=== PATIENT | male | born 1940 | race Caucasian/White ===

== ENCOUNTER 2018-06-13 09:25 | Outpatient (CLI) | payer MEDICARE | END 2018-06-13 09:26 | disposition critical access hospital (66) | LOC: EMS 09:25 | PROVIDERS: ATTEND Surgery | DX: R51 Headache (principal); R41.0 Disorientation, unspecified; R35.0 Frequency of micturition | CPT/HCPCS: A0425; A0427 ==

== ENCOUNTER 2018-06-13 09:51 | Inpatient (IN) | payer MEDICARE ==
[2018-06-13] MEDS ORDERED: SODIUM CHLORIDE 0.9% 1,000 ML IV ONE (10:34)
--- NOTE | 2018-06-13 10:44 | ED Physician Documentation ---
PD HPI ALTERED MENTAL STATUS - Stated complaint Stated Complaint: AMS - Chief complaint Chief Complaint: Neuro - History obtained from History obtained from: Patient, Family - History of Present Illness Timing - onset: How many days ago (3) Timing - duration: Days (3) Timing - details: Gradual onset, Still present, Still present in ED Quality / character: Less responsive, Confused Associated symptoms: Headache, Urinary sx, General weakness. No: Fever, Stiff neck, Dyspnea, Cough, NVD, Focal weakness, Seizure activity, Syncope Contributing factors: Anticoagulated Basline status: Alert and oriented X 3, Ambulatory, Independent Similar symptoms before: Other (dementia starting about 1 year ago.) Recently seen: Not recently seen - Additional information Additional information: 78-year-old male with history of hypertension and a atrial fibrillation who is on Xarelto has recently returned from [place] about a week ago and he has been unpacking and working hard until about 3 days ago when he slowed down and stopped doing as much and yesterday he spent pretty much the whole day napping in his easy chair. His was gone yesterday getting an epidural steroid injection and when he returned home he found the patient to be less responsive than usual he thought the patient may be exhausted and when he slept well today last night and was still confused this morning he is brought him here to the emergency department for evaluation. The patient has had some urinary symptoms he has had a headache and he is on Xarelto and he has not been taking his medications which include metoprolol XL and enalapril Review of Systems Constitutional: reports: Fatigue. denies: Fever, Chills Eyes: denies: Decreased vision Ears: denies: Ear pain Nose: denies: Rhinorrhea / runny nose, Congestion Throat: denies: Sore throat Cardiac: denies: Chest pain / pressure, Palpitations, Pedal edema, Calf pain Respiratory: denies: Dyspnea, Cough GI: reports: Constipation. denies: Abdominal Pain, Nausea, Vomiting, Diarrhea : reports: Frequency, Incontinent. denies: Dysuria Skin: denies: Rash Musculoskeletal: reports: Back pain. denies: Neck pain, Extremity pain Neurologic: reports: Confused, Altered mental status, Headache. denies: Generalized weakness, Focal weakness, Numbness, Head injury, LOC PD PAST MEDICAL HISTORY - Present Medications Home Medications: Ambulatory Orders Medication Instructions Recorded Confirmed Allopurinol 300 mg PO DAILY 06/13/18 06/13/18 Beclomethasone 80 Mcg [Qvar 80] 0 puffs INH BID 06/13/18 06/13/18 Celecoxib 200 mg PO DAILY 06/13/18 06/13/18 Enalapril Maleate [Vasotec] 20 mg PO DAILY 06/13/18 06/13/18 Felodipine [Felodipine ER] 5 mg PO DAILY 06/13/18 06/13/18 Metoprolol Succinate [Toprol Xl] 50 mg PO DAILY 06/13/18 06/13/18 Rivaroxaban [Xarelto] 20 mg PO DAILY 06/13/18 06/13/18 Testosterone Cypionate 200 mg IM ONCE 06/13/18 06/13/18 [Depo-Testosterone] buPROPion [Wellbutrin Sr] 150 mg PO BID 06/13/18 06/13/18 - Allergies Allergies/Adverse Reactions: Allergies Allergy/AdvReac Type Severity Reaction Status Date / Time No Known Drug Allergies Allergy Verified 06/13/18 10:01 PD ED PE NORMAL - Vitals Vital signs reviewed: Yes (tachy and hypertensive ) - General General: No acute distress, Well developed/nourished, Other (confused and smiling/laughing) - HEENT HEENT: Atraumatic, PERRL, EOMI, Ears normal, Pharynx benign, Dentition benign, Other (dry mucous membranes) - Neck Neck: Supple, no meningeal sign, No bony TTP - Cardiac Cardiac: No murmur, Other (tachy and irregular ) - Respiratory Respiratory: No respiratory distress, Clear bilaterally - Abdomen Abdomen: Soft, Non tender - Back Back: No CVA TTP, No spinal TTP - Derm Derm: Normal color, Warm and dry, No rash - Extremities Extremities: No deformity, No edema - 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, No motor deficit, No sensory deficit, Normal speech Eye Opening: Spontaneous Motor: Obeys Commands Verbal: Confused GCS Score: 14 - Psych Psych: Normal mood, Normal affect Results - Vitals Vitals: Vital Signs - 24 hr 06/13/18 06/13/18 06/13/18 09:53 10:05 12:08 Temperature 36.6 C Heart Rate 104 H 100 95 Respiratory 14 19 20 Rate Blood Pressure 202/139 H 186/132 H 196/136 H O2 Saturation 96 97 97 05/02/19 12:57 Temperature Heart Rate 94 Respiratory 22 Rate Blood Pressure 147/103 H O2 Saturation 94 Oxygen O2 Source Room air - EKG (time done) 1005 Rate: Rate (enter#) (106) Rhythm: Atrial fibrillation Compare to prior EKG: Old EKG unavailable Computer interpretation: Agree with computer - Labs Labs: Laboratory Tests 06/13/18 06/13/18 06/13/18 10:55 10:55 10:55 WBC 10.5 RBC 5.40 Hgb 18.2 H Hct 55.1 H MCV 102.2 H MCH 33.7 H MCHC 33.0 RDW 14.6 Plt Count 164 MPV 7.8 Neut # (Auto) 7.7 H Lymph # (Auto) 1.7 St[place]ard # (Auto) 0.9 Eos # (Auto) 0.1 Baso # (Auto) 0.1 Absolute Nucleated RBC 0.00 Nucleated RBC % 0.0 PT 12.7 H INR 1.1 Sodium 136 Potassium 3.8 Chloride 102 Carbon Dioxide 21 Anion Gap 13.0 BUN 15 Creatinine 0.7 Estimated GFR (MDRD) 109 Glucose 105 H Lactic Acid Calcium 9.4 Total Bilirubin 2.0 H AST 38 ALT 33 Alkaline Phosphatase 65 Troponin I Total Protein 6.5 L Albumin 3.6 Globulin 2.9 Albumin/Globulin Ratio 1.2 Lipase 28 Urine Color Urine Clarity Urine pH Ur Specific [place] Urine Protein Urine Glucose (UA) Urine Ketones Urine Occult Blood Urine Nitrite Urine Bilirubin Urine Urobilinogen Ur Leukocyte Esterase Urine RBC Urine WBC Ur Squamous Epith Cells Urine Bacteria Ur Microscopic Review Urine Culture Comments 06/13/18 06/13/18 06/13/18 10:55 10:55 12:00 WBC RBC Hgb Hct MCV MCH MCHC RDW Plt Count MPV Neut # (Auto) Lymph # (Auto) St[place] # (Auto) Eos # (Auto) Baso # (Auto) Absolute Nucleated RBC Nucleated RBC % PT INR Sodium Potassium Chloride Carbon Dioxide Anion Gap BUN Creatinine Estimated GFR (MDRD) Glucose Lactic Acid 1.1 Calcium Total Bilirubin AST ALT Alkaline Phosphatase Troponin I < 0.04 Total Protein Albumin Globulin Albumin/Globulin Ratio Lipase Urine Color YELLOW Urine Clarity CLEAR Urine pH 6.5 Ur Specific [place] 1.020 Urine Protein 30 H Urine Glucose (UA) NEGATIVE Urine Ketones 15 H Urine Occult Blood SMALL H Urine Nitrite NEGATIVE Urine Bilirubin NEGATIVE Urine Urobilinogen 1 (NORMAL) Ur Leukocyte Esterase NEGATIVE Urine RBC 0-5 Urine WBC 0-3 Ur Squamous Epith Cells RARE Squamous Urine Bacteria Rare Ur Microscopic Review INDICATED Urine Culture Comments NOT INDICATED - Rads (name of study) CT head without Radiology: Prelim report reviewed (Impression: Generalized age-related cortical atrophic changes without evidence of acute intracranial abnormality.), EMP read indepedently, See rad report Procedures - IVC sono (time) 1030 Bedside IVC sono: IVC measures (cm) (1.22), IVC collapsed c insp (cm) (complete), Dehydration (est 1 liter deficit) PD MEDICAL DECISION MAKING - ED course Complexity details: reviewed results, re-evaluated patient, considered differential, d/w patient, d/w family ED course: 78-year-old male on Xarelto with acute confusion does have a headache and hypertension as well as some urinary symptoms. He is administered metoprolol XL enalapril and a CT of the head is obtained. He has improvement in his blood pressure and his ability to communicate but he is far from his baseline. He has some existing dementia and this seems now suddenly worse or he has some hypertensive encephalopathy. I have asked Dr. Rodney to consider the patient for admission to the hospital for MRI, monitoring and blood pressure control. Departure - Departure Disposition: ED Place in Observation Clinical Impression: Hypertensive encephalopathy syndrome Condition: Fair
[2018-06-13] MEDS ORDERED: METOPROLOL SUCCINATE 50 MG TABLET PO STA (10:48)
[2018-06-13] MEDS ORDERED: ENALAPRIL 5 MG TABLET PO STA (10:48)
[2018-06-13 11:05] LABS: BASOPHILS # (AUTO) 0.1 10^3/uL (0.0-0.1); EOSINOPHILS # (AUTO) 0.1 10^3/uL (0.0-0.7); HGB - HEMOGLOBIN 18.2 g/dL (14.0-18.0); LYMPHOCYTES # (AUTO) 1.7 10^3/uL (1.5-3.5); LYMPHOCYTES % (AUTO) 15.8 %; MEAN CORPUSCULAR HEMOGLOBIN 33.7 pg (27.0-31.0); MEAN CORPUSCULAR VOLUME 102.2 fL (80.0-94.0); MEAN PLATELET VOLUME 7.8 fL (7.4-11.4); MONOCYTES # (AUTO) 0.9 10^3/uL (0.0-1.0); NEUTROPHILS # (AUTO) 7.7 10^3/uL (1.5-6.6); NEUTROPHILS % (AUTO) 73.2 %; PLT - PLATELET COUNT 164 10^3/uL (130-450); RED CELL DISTRIBUTION WIDTH 14.6 % (12.0-15.0); WHITE BLOOD COUNT 10.5 x10^3/uL (4.8-10.8)
[2018-06-13 11:16] LABS: INR 1.1 (0.8-1.2); PT - PROTHROMBIN TIME 12.7 secs (9.9-12.6)
[2018-06-13 11:20] LABS: ALBUMIN 3.6 g/dL (3.2-5.5); ALBUMIN/GLOBULIN RATIO 1.2 (1.0-2.2); CALCIUM 9.4 mg/dL (8.5-10.3); CREATININE 0.7 mg/dL (0.6-1.2); TOTAL PROTEIN 6.5 g/dL (6.7-8.2)
--- NOTE | 2018-06-13 11:31 | CT Report ---
Reason: confusion, headache, htn Procedure Date: 06/13/2018 Accession Number: [id number] / [id number] Procedure: CT - HEAD WO CPT Code: FULL RESULT: EXAM: CT HEAD EXAM DATE: 06/13/2018 11:15 AM. CLINICAL HISTORY: Headache. COMPARISON: None. TECHNIQUE: Multiaxial CT images were obtained from the foramen magnum to the vertex. Reformats: Sagittal and coronal. IV contrast: None. In accordance with CT protocol optimization, one or more of the following dose reduction techniques were utilized for this exam: automated exposure control, adjustment of mA and/or KV based on patient size, or use of iterative reconstructive technique. FINDINGS: Parenchyma: No intraparenchymal hemorrhage. No evidence of mass, midline shift, or CT findings of acute infarction. Gonzalez-white differentiation is distinct. Diffuse chronic microangiopathic white matter changes are evident. Extraaxial Spaces: Normal for age. No subdural or epidural collections identified. Ventricles: The ventricles and cortical sulci are enlarged, consistent with age-related tissue loss. Sinuses and orbits: Imaged paranasal sinuses, orbits, and mastoids show no significant abnormality. Bones: No evidence of fracture or calvarial defect. Other: None. IMPRESSION: Generalized age-related cortical atrophic changes without evidence of acute intracranial abnormality. RADIA
[2018-06-13 12:18] LABS: GLUCOSE, URINE (UA) NEGATIVE (NEGATIVE); KETONES,URINE (UA) 15 mg/dL (NEGATIVE); LEUKOCYTE ESTERASE, URINE NEGATIVE (NEGATIVE); NITRITE,URINE NEGATIVE (NEGATIVE); OCCULT BLOOD,URINE SMALL (NEGATIVE); PH,URINE 6.5 PH (5.0-7.5); PROTEIN,URINE 30 mg/dL (NEGATIVE); UROBILINOGEN,URINE 1 (NORMAL) E.U./dL (NORMAL)
[2018-06-13 12:30] LABS: BILIRUBIN,URINE NEGATIVE (NEGATIVE); CLARITY,URINE CLEAR (CLEAR); ICTOTEST,URINE NEGATIVE
[2018-06-13 12:36] LABS: BACTERIA,URINE Rare /HPF (None Seen); RBC,URINE 0-5 /HPF (0-5); SQUAMOUS EPITHELIAL CELL,UR RARE Squamous (<= Few)
[2018-06-13] MEDS ORDERED: ZOLPIDEM 5 MG TABLET PO PRN (13:55)
--- NOTE | 2018-06-13 14:37 | HISTORY & PHYSICAL EXAMINATION ---
Chief Complaint - Chief Complaint Chief Complaint: Confusion with associated weakness Stroke/TIA/Neuro Template - Admitted From Admitted from: ED - History Obtained From Records Reviewed: RN notes reviewed History obtained from: Patient, Other (Dr. Fierro) Exam limitations: Clinical condition, Other (Encephalopathic but improved) - History of Present Illness HPI Comment/Other: 78-year-old male with history of hypertension and a atrial fibrillation who is on Xarelto has recently returned from [place] about a week ago and he has been unpacking and working hard until about 3 days ago when he slowed down and stopped doing as much and yesterday he spent pretty much the whole day napping in his easy chair. His was gone yesterday getting an epidural steroid injection and when he returned home he found the patient to be less responsive than usual he thought the patient may be exhausted and when he slept well today last night and was still confused this morning he is brought him here to the emergency department for evaluation. The patient has had some urinary symptoms he has had a headache and he is on Xarelto and he has not been taking his medications which include metoprolol XL and enalapril. Patient's initial blood pressure showed a systolic of 202/139 diastolic slightly RVR A. fib at 104 bpm was given IV and p.o. BP meds which now has come down to 147/103 nontachypneic non-hypoxemic with a controlled rate atrial fibrillation of 94 bpm. Patient's initial hemoglobin was 18.2 with a WBC of 10.5, platelets 164, MCV 102.2 (macrocytosis). Electrolytes were normal with normal renal function creatinine of 0.7. Lactic acid 1.1, T bilirubin 2.0 with normal glucose. TSH <0.08, UDS +opiates and cannibinoids. Initial CT of the head showed diffuse chronic microangiopathic changes. Patient to be admitted for further evaluation management treatment. Meds/Allgy - Home Medications Home Medications: Ambulatory Orders Medication Instructions Recorded Confirmed Allopurinol 300 mg PO DAILY 06/13/18 06/13/18 Beclomethasone 80 Mcg [Qvar 80] 2 - 4 puffs INH BID PRN 06/13/18 06/13/18 Celecoxib 200 mg PO DAILY 06/13/18 06/13/18 Enalapril Maleate [Vasotec] 20 mg PO BID 06/13/18 06/13/18 Felodipine [Felodipine ER] 10 mg PO DAILY 06/13/18 06/13/18 Fluticasone [Flonase] 2 sprays JAMIN DAILY 06/13/18 06/13/18 Folic Acid 1 mg PO DAILY 06/13/18 06/13/18 Hydroxychloroquine [Plaquenil] 400 mg PO DAILY 06/13/18 06/13/18 Methotrexate 20 mg PO Q7D 06/13/18 06/13/18 Metoprolol Succinate [Toprol Xl] 100 mg PO DAILY 06/13/18 06/13/18 Potassium Chloride 10 meq PO DAILY 06/13/18 06/13/18 Rivaroxaban [Xarelto] 20 mg PO DAILY 06/13/18 06/13/18 Testosterone Cypionate 200 mg IM ONCE 06/13/18 06/13/18 [Depo-Testosterone] buPROPion [Wellbutrin Sr] 150 mg PO BID 06/13/18 06/13/18 predniSONE [Prednisone] 5 mg PO DAILY 06/13/18 06/13/18 - Allergies Allergies/Adverse Reactions: Allergies Allergy/AdvReac Type Severity Reaction Status Date / Time No Known Drug Allergies Allergy Verified 06/13/18 10:01 Review of Systems - All Other Systems All Other Systems: reports: Reviewed and negative Prior Level of Functionality: Patient was ambulatory and home ADLs with FC normal Exam - Vital Signs Vital Signs: Vital Signs x48h Temp Pulse Resp BP Pulse Ox 06/13/18 12:57 94 22 147/103 H 94 06/13/18 12:08 95 20 196/136 H 97 06/13/18 10:05 100 19 186/132 H 97 06/13/18 09:53 36.6 C 104 H 14 202/139 H 96 - Physical Exam General Appearance: positive: No acute distress, Alert, Other (Patient confused, oriented to self and place) Eyes Bilateral: positive: Normal inspection, PERRL, EOMI ENT: positive: ENT inspection nml, Pharynx nml, No signs of dehydration Neck: positive: Nml inspection, Thyroid nml, No JVD, Trachea midline. negative: Thyromegaly Respiratory: positive: No respiratory distress, Breath sounds nml Cardiovascular: positive: No murmur, No gallop, Irregularly irregular. negative: JVD present, Systolic murmur, Diastolic murmur, Gallop/S4, Friction rub Peripheral Pulses: positive: 2+ Abdomen: positive: Non-tender, No organomegaly, Nml bowel sounds, No distention Skin: positive: Color nml, No rash Extremities: positive: Non-tender, Full ROM, Nml appearance. 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 negative: Facial droop Reflexes: Bicep (R): 1+, Bicep (L): 1+, Knee (R): 2+, Knee (L): 2+, Ankle (R): 1+, Ankle (L): 1+ Babinski Reflex: Right: Absent, Left: Absent Results - Lab Results Lab results reviewed: Yes Fish Bones: 06/13/18 10:55 06/13/18 10:55 Other Lab Results: Lab Results x24hrs 06/13/18 06/13/18 06/13/18 Range/Units 12:00 10:55 10:55 WBC (4.8-10.8) x10^3/uL RBC (4.70-6.10) 10^6/uL Hgb (14.0-18.0) g/dL Hct (42.0-52.0) % MCV (80.0-94.0) fL MCH (27.0-31.0) pg MCHC (32.0-36.0) g/dL RDW (12.0-15.0) % Plt Count (130-450) 10^3/uL MPV (7.4-11.4) fL Neut # (Auto) (1.5-6.6) 10^3/uL Lymph # (Auto) (1.5-3.5) 10^3/uL Hood # (Auto) (0.0-1.0) 10^3/uL Eos # (Auto) (0.0-0.7) 10^3/uL Baso # (Auto) (0.0-0.1) 10^3/uL Absolute Nucleated RBC x10^3/uL Nucleated RBC % /100WBC PT (9.9-12.6) secs INR (0.8-1.2) Sodium (135-145) mmol/L Potassium (3.5-5.0) mmol/L Chloride (101-111) mmol/L Carbon Dioxide (21-32) mmol/L Anion Gap (6-13) BUN (6-20) mg/dL Creatinine (0.6-1.2) mg/dL Estimated GFR (MDRD) (>89) Glucose (70-100) mg/dL Lactic Acid 1.1 (0.5-2.2) mmol/L Calcium (8.5-10.3) mg/dL Total Bilirubin (0.2-1.0) mg/dL AST (10-42) IU/L ALT (10-60) IU/L Alkaline Phosphatase (42-121) IU/L Troponin I < 0.04 (<0.49) ng/mL Total Protein (6.7-8.2) g/dL Albumin (3.2-5.5) g/dL Globulin (2.1-4.2) g/dL Albumin/Globulin Ratio (1.0-2.2) Lipase (22-51) U/L Urine Color YELLOW Urine Clarity CLEAR (CLEAR) Urine pH 6.5 (5.0-7.5) PH Ur Specific [place] 1.020 (1.002-1.030) Urine Protein 30 H (NEGATIVE) mg/dL Urine Glucose (UA) NEGATIVE (NEGATIVE) mg/dL Urine Ketones 15 H (NEGATIVE) mg/dL Urine Occult Blood SMALL H (NEGATIVE) Urine Nitrite NEGATIVE (NEGATIVE) Urine Bilirubin NEGATIVE (NEGATIVE) Urine Urobilinogen 1 (NORMAL) (NORMAL) E.U./dL Ur Leukocyte Esterase NEGATIVE (NEGATIVE) Urine RBC 0-5 (0-5) /HPF Urine WBC 0-3 (0-3) /HPF Ur Squamous Epith Cells RARE Squamous (<= Few) Urine Bacteria Rare (None Seen) /HPF Ur Microscopic Review INDICATED Urine Culture Comments NOT INDICATED 06/13/18 06/13/18 06/13/18 Range/Units 10:55 10:55 10:55 WBC 10.5 (4.8-10.8) x10^3/uL RBC 5.40 (4.70-6.10) 10^6/uL Hgb 18.2 H (14.0-18.0) g/dL Hct 55.1 H (42.0-52.0) % MCV 102.2 H (80.0-94.0) fL MCH 33.7 H (27.0-31.0) pg MCHC 33.0 (32.0-36.0) g/dL RDW 14.6 (12.0-15.0) % Plt Count 164 (130-450) 10^3/uL MPV 7.8 (7.4-11.4) fL Neut # (Auto) 7.7 H (1.5-6.6) 10^3/uL Lymph # (Auto) 1.7 (1.5-3.5) 10^3/uL Hood # (Auto) 0.9 (0.0-1.0) 10^3/uL Eos # (Auto) 0.1 (0.0-0.7) 10^3/uL Baso # (Auto) 0.1 (0.0-0.1) 10^3/uL Absolute Nucleated RBC 0.00 x10^3/uL Nucleated RBC % 0.0 /100WBC PT 12.7 H (9.9-12.6) secs INR 1.1 (0.8-1.2) Sodium 136 (135-145) mmol/L Potassium 3.8 (3.5-5.0) mmol/L Chloride 102 (101-111) mmol/L Carbon Dioxide 21 (21-32) mmol/L Anion Gap 13.0 (6-13) BUN 15 (6-20) mg/dL Creatinine 0.7 (0.6-1.2) mg/dL Estimated GFR (MDRD) 109 (>89) Glucose 105 H (70-100) mg/dL Lactic Acid (0.5-2.2) mmol/L Calcium 9.4 (8.5-10.3) mg/dL Total Bilirubin 2.0 H (0.2-1.0) mg/dL AST 38 (10-42) IU/L ALT 33 (10-60) IU/L Alkaline Phosphatase 65 (42-121) IU/L Troponin I (<0.49) ng/mL Total Protein 6.5 L (6.7-8.2) g/dL Albumin 3.6 (3.2-5.5) g/dL Globulin 2.9 (2.1-4.2) g/dL Albumin/Globulin Ratio 1.2 (1.0-2.2) Lipase 28 (22-51) U/L Urine Color Urine Clarity (CLEAR) Urine pH (5.0-7.5) PH Ur Specific [place]illian (1.002-1.030) Urine Protein (NEGATIVE) mg/dL Urine Glucose (UA) (NEGATIVE) mg/dL Urine Ketones (NEGATIVE) mg/dL Urine Occult Blood (NEGATIVE) Urine Nitrite (NEGATIVE) Urine Bilirubin (NEGATIVE) Urine Urobilinogen (NORMAL) E.U./dL Ur Leukocyte Esterase (NEGATIVE) Urine RBC (0-5) /HPF Urine WBC (0-3) /HPF Ur Squamous Epith Cells (<= Few) Urine Bacteria (None Seen) /HPF Ur Microscopic Review Urine Culture Comments - Diagnostic Imaging Results Diagnostic Imaging Results: positive: Final report reviewed - EKG Results EKG Interpreted Independently: Yes EKG Comparison: positive: Old EKG unavailable Impression/Plan - Problem List Problem List: Assessment and plan: 1. Acute hypertensive encephalopathy Continue to control with patient's oral BP meds with Vasotec for low supine as well as metoprolol ER succinate. Will cover for hypertensive excursions with IV hydralazine with parameters. Initial CT of the head shows no acute ischemic insults. MRI of the brain shows no acute ischemic insults. There is evidence of bilateral cerebral hemisphere inferiorly in the right cerebellum consistent with old lacunar infarcts. Neurochecks, aspiration precautions, control for secondary preventative measures such as statin and patient already on a NOAC for his chronic atrial fibrillation. Interestingly patient's urine drug was positive for opiates and cannabinoids. Patient is on vicodin for back pain. 2. Acute mild dehydration Would continue to give IV fluid resuscitation correct underlying electrolyte disturbance. 3. 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 MRI of the brain to follow. Neurochecks to continue. Control hypertensive excursions. 4. Uncontrolled hypertension Hypertensive excursions to be controlled hydralazine IV PRN with parameters, Clonidine 0.2 mg p.o. twice daily PRN. We will continue patient's p.o. Vasotec, felodipine, oral metoprolol Er succinate to continue. Lipid panel to follow. 5. Chronic atrial fibrillation anticoagulated on Xarelto Patient is currently rate controlled. Continue on Xarelto and evaluate for any bleeding events. CHADSVAsc to follow once ECHO complete. 6. History of CVAs anticoagulated with Xarelto MRI shows moderate white matter cerebral hemisphere small vessel ischemia combined with bilateral and inferiorly in the right cerebellum old lacunar infarcts. Secondary prevention prophylaxis along with continuing with a statin. 7. Chronic back pain Urine drug screen was positive for opiates and cannabinoids. Patient admits to using CBD as well as Vicodin for his chronic back pain. 8. Abnormal Lab/low TSH Unclear if this is subclinical hyperthyroidism versus an autoimmune process. Will obtain free T3-T4 levels. 9. Advanced care planning/counseling Discussion with patient spouse along with medical management plan of care and trajectory of illness were discussed in length. Patient's spouse has comfort patient's CODE STATUS to be full code. [facility] DVT/GI ppx; H2-iban patient already anticoagulated with Xarelto CODE STATUS: Full code Core Measures - Anticipated LOS I expect patient to be DC'd or transferred within 96 hours.: Yes - DVT/VTE - Prophylaxis VTE/DVT Device ordered at admit?: Yes VTE/DVT Prophylaxis med ordered at admit?: No Not Ordered - Medical Reason: Not indicated (Patient is on Xarelto) - Stroke - Rehab Assessment Rehab services assessment to be ordered?: No - AMI - Statin at Admit Aspirin Prescribed on Admit: No Not Ordered - Medical Reason: Not indicated (Patient is on Xarelto)
[2018-06-13 14:40] LABS: MUDS CUTOFF CONCENTRATIONS CUTOFF CONC BELOW:
[2018-06-13 14:42] LABS: THYROID STIMULATING HORMONE < 0.08 uIU/mL (0.34-5.60)
[2018-06-13 14:53] LABS: AMPHETAMINE SCREEN,URINE NEGATIVE (NEGATIVE); BENZODIAZEPINES SCREEN, URINE NEGATIVE (NEGATIVE); COCAINE SCREEN URINE NEGATIVE (NEGATIVE); METHADONE SCREEN, URINE NEGATIVE (NEGATIVE); METHAMPHETAMINES SCREEN, URINE NEGATIVE (NEGATIVE); OPIATE SCREEN, URINE POSITIVE (NEGATIVE); OXYCODONE SCREEN, URINE NEGATIVE (NEGATIVE); PROPOXYPHENE SCREEN, URINE NEGATIVE (NEGATIVE); TRICYCLIC ANTIDEPRESSANT,URINE NEGATIVE (NEGATIVE)
[2018-06-13] MEDS: ACETAMINOPHEN 325 MG TABLET PO PRN (15:02)
[2018-06-13] MEDS: SODIUM CHLORIDE FLUSH 0.9% 10 ML SYRINGE IVP SCH (16:56)
[2018-06-13] MEDS: SODIUM CHLORIDE 0.9% 1,000 ML IV SCH (16:56)
[2018-06-13] MEDS ORDERED: RIVAROXABAN 10 MG TABLET PO SCH (17:00)
--- NOTE | 2018-06-13 17:17 | MRI Report ---
Reason: Encephalopathy Procedure Date: 06/13/2018 Accession Number: [id number] / [id number] Procedure: MRI - Brain W/O CPT Code: FULL RESULT: EXAM: MRI BRAIN WITHOUT CONTRAST EXAM DATE: 06/13/2018 04:33 PM. CLINICAL HISTORY: Confusion. Clinical history from prior study includes: Headache. COMPARISON: HEAD W/O 06/13/2018 11:07 AM. TECHNIQUE: Multiplanar, multisequence T1-weighted and fluid-sensitive MR sequences of the brain were performed. Sequences optimized for routine evaluation. Other: None. IV Contrast: None. FINDINGS: (Study is somewhat limited by motion artifact.) Brain Volume: Mild age-related atrophy is present. Parenchyma/Dura: No mass, acute infarct or hemorrhage. Moderate confluent periventricular and patchy deep white matter T2/FLAIR bright signal is seen in the cerebral hemispheres. Several small punctate cystic foci are seen bilaterally. On the right this is noted superior to the atrium of the right lateral ventricle. On the left this is seen in the nava radiata. A small linear cystic focus is seen in the right cerebellum. Ventricles/Cisterns: Mild prominence to the ventricular system and overlying cortical sulci is noted. No hydrocephalus. No abnormal extra-axial fluid collection or hemorrhage. Orbits: Unremarkable. Note is made of right lens removal. Sella Turcica: The pituitary gland, cavernous sinuses, suprasellar cistern and optic chiasm are unremarkable. IAC: Symmetric and unremarkable. Vasculature: Normal signal flow void is seen in the major arterial structures at the skull base. Sinuses: No acute appearing sinus disease. Bones: No focal pathologic appearing marrow signal changes. Other: None. IMPRESSION: (Study is somewhat limited by motion artifact.) 1. No acute intracranial abnormality. No acute infarct, mass, or hemorrhage. 2. Age-related atrophy. 3. Moderate white matter T2/FLAIR bright signal is seen in the cerebral hemispheres. This is nonspecific. This can be seen secondary to small vessel ischemic change. 4. Small cystic foci seen in the white matter of the cerebral hemispheres bilaterally and inferiorly in the right cerebellum. This is consistent with old lacunar infarcts. RADIA
[2018-06-13] MEDS: FAMOTIDINE 20 MG TABLET PO SCH (20:32)
[2018-06-14] MEDS: SODIUM CHLORIDE FLUSH 0.9% 10 ML SYRINGE IVP SCH ×3 (01:00→16:58)
[2018-06-14 05:11] LABS: BASOPHILS # (AUTO) 0.1 10^3/uL (0.0-0.1); BASOPHILS % (AUTO) 0.8 %; EOSINOPHILS # (AUTO) 0.3 10^3/uL (0.0-0.7); EOSINOPHILS % (AUTO) 3.2 %; HGB - HEMOGLOBIN 16.1 g/dL (14.0-18.0); LYMPHOCYTES % (AUTO) 24.3 %; MEAN CORPUSCULAR HEMOGLOBIN 33.9 pg (27.0-31.0); MEAN CORPUSCULAR HGB CONC 33.2 g/dL (32.0-36.0); MEAN CORPUSCULAR VOLUME 102.3 fL (80.0-94.0); MONOCYTES % (AUTO) 12.4 %; NEUTROPHILS # (AUTO) 4.9 10^3/uL (1.5-6.6); NEUTROPHILS % (AUTO) 59.3 %; PLT - PLATELET COUNT 165 10^3/uL (130-450); RED BLOOD COUNT 4.76 10^6/uL (4.70-6.10); RED CELL DISTRIBUTION WIDTH 14.4 % (12.0-15.0); WHITE BLOOD COUNT 8.2 x10^3/uL (4.8-10.8)
[2018-06-14 05:21] LABS: ALBUMIN 3.3 g/dL (3.2-5.5); BUN - BLOOD UREA NITROGEN 17 mg/dL (6-20); CARBON DIOXIDE - CO2 26 mmol/L (21-32); CHLORIDE 107 mmol/L (101-111); CHOL/HDL RATIO 3.7 (<5.0); CHOLESTEROL 150 mg/dL; CREATININE 0.8 mg/dL (0.6-1.2); GFR - MDRD 94 (>89); GLUCOSE 106 mg/dL (70-100); HDL CHOLESTEROL 41 mg/dL; LDL CHOLESTEROL,CALCULATED 92 mg/dL; LDL/HDL RATIO 2.2 (<3.6); PHOSPHORUS 3.5 mg/dL (2.5-4.6); SODIUM 143 mmol/L (135-145); VLDL CHOLESTEROL 17 mg/dL
[2018-06-14] MEDS: SODIUM CHLORIDE 0.9% 1,000 ML IV SCH ×2 (05:28→18:19)
[2018-06-14] MEDS: hydrALAZINE INJ 20 MG/ML VIAL IVP PRN (07:47)
[2018-06-14] MEDS ORDERED: METOPROLOL SUCCINATE 50 MG TABLET PO SCH (09:00)
[2018-06-14] MEDS ORDERED: predniSONE 5 MG TABLET PO SCH (09:00)
[2018-06-14] MEDS: FLUTICASONE NASAL SPRAY NAS SCH (10:07)
[2018-06-14] MEDS: NYSTATIN POWDER 15 GM TOP SCH ×2 (10:07→20:40)
[2018-06-14] MEDS: POLYETHYLENE GLYCOL 3350 17 GM PACKET PO SCH (10:08)
[2018-06-14] MEDS: POTASSIUM CHLORIDE 10 MEQ CAPSULE PO SCH (10:08)
[2018-06-14] MEDS: ENALAPRIL 5 MG TABLET PO SCH (10:08)
[2018-06-14] MEDS: FELODIPINE ER 2.5 MG TABLET PO SCH (10:08)
[2018-06-14] MEDS: FAMOTIDINE 20 MG TABLET PO SCH ×2 (10:09→20:39)
[2018-06-14] MEDS: FOLIC ACID 1 MG TABLET PO SCH (10:09)
[2018-06-14] MEDS: ALLOPURINOL 100 MG TABLET PO SCH (10:09)
--- NOTE | 2018-06-14 10:15 | MISCELLANEOUS PROVIDER NOTE ---
Miscellaneous Provider Note - - Note: HPI: 78-year-old male with history of hypertension and a atrial fibrillation who is on Xarelto has recently returned from [place] about a week ago and he has been unpacking and working hard until about 3 days ago when he slowed down and stopped doing as much and yesterday he spent pretty much the whole day napping in his easy chair. His was gone yesterday getting an epidural steroid injection and when he returned home he found the patient to be less responsive than usual he thought the patient may be exhausted and when he slept well today last night and was still confused this morning he is brought him here to the emergency department for evaluation. The patient has had some urinary symptoms he has had a headache and he is on Xarelto and he has not been taking his medications which include metoprolol XL and enalapril. Patient's initial blood pressure showed a systolic of 202/139 diastolic slightly RVR A. fib at 104 bpm was given IV and p.o. BP meds which now has come down to 147/103 nontachypneic non-hypoxemic with a controlled rate atrial fibrillation of 94 bpm. Patient's initial hemoglobin was 18.2 with a WBC of 10.5, platelets 164, MCV 102.2 (macrocytosis). Electrolytes were normal with normal renal function creatinine of 0.7. Lactic acid 1.1, T bilirubin 2.0 with normal glucose. TSH <0.08, UDS +opiates and cannibinoids. Initial CT of the head showed diffuse chronic microangiopathic changes. Patient to be admitted for further evaluation manag ement treatment. Subjective: Patient seen at bedside still displaying some confusion and encephalopathy relating to his blood pressure excursions, no fevers, no urinary incontinence, no observed seizures. Patient denies chest pain, shortness of breath, GI or symptoms. Objective: Vital signs are hemodynamically stable. Afebrile, heart rate of 96 bpm, BP 189/108 after treatment of blood pressure came down to 152/99, 97% O2 saturation on room air. General: Patient is alert and oriented x2, verbalizes with a delayed response, no acute respiratory distress, pleasant cooperative. HEENT: Pupils are equal round reactive light and accommodation with no gaze abnormality or extraocular muscles being within normal limits. NCAT. No buccal lesions. Neck: No JVD, no bruits, no lymphadenopathy, no thyromegaly, trachea midline CV/lungs: Irregular rate and rhythm, S1-S2 within normal limits no murmurs gallops clicks or rubs. Chest is clear to auscultation bilaterally. Abdomen: Soft nontender nondistended positive bowel sounds all quadrants no hepatosplenomegaly. No bruits. Extremities/skin: No edema clubbing or cyanosis. 2+ pulses dorsalis pedis bilaterally. Neuro: Cranial nerves II to XII grossly intact. Decreased plantar and dorsiflexion on active range of motion to left foot versus right foot. Poor bilateral street roller engineer strength. Labs: Reviewed next Imaging: Reviewed Assessment/plan: 1. Acute hypertensive encephalopathy We will continue with up titration of metoprolol ER succinate, continuation of Vasotec along with plan they will. MRI of the brain shows no acute ischemic insults. There is evidence of bilateral cerebral hemisphere inferiorly in the right cerebellum consistent with old lacunar infarcts. Neurochecks, aspiration precautions, control for secondary preventative measures such as statin and patient already on a NOAC for his chronic atrial fibrillation. Interestingly patient's urine drug was positive for opiates and cannabinoids. Patient is on vicodin for back pain. Patient certainly is immunocompromised if he has been on prednisone for the treatment of his rheumatoid arthritis and reactivation of HSV type II would be significant in this case. HIV, hepatitis panel, HSV, RPR serologies pending. Will likely need to start on IV acyclovir in the setting of patient's prior history of HSV type II. LP indicated, Will need to be off of Xarelto for at least 72 hours. 2. Subclinical hyperthyroidism Patient with abnormal TFTs, almost undetectable TSH along with a free T4 at 3.03, free T3 of 4.81. Thyroid ultrasound will be ordered along with possible Tapazole if patient is in RVR A. fib, anti-thyroid antibodies ordered. Patient likely will need an outpatient referral to endocrinology as this may be a comorbidity related to patient's prior history of rheumatoid arthritis. 3. Upper and lower extremity weakness Will have physical therapy assess for gait disturbance and upper and lower extremity weakness which may be attributable to hypertensive encephalopathy. Neurochecks to continue. Control hypertensive excursions. 4. Chronic atrial fibrillation Previously anticoagulated on Xarelto. arelto will be currently on hold to achieve a washout for anticipation of a lumbar puncture. Patient has been displaying mild RVR A. fib although, will need to start on Tapazole at 5 mg p.o. 3 times daily. CHADSVasc 5 pts, 7.2% stroke risk per year. 5. History of CVAs anticoagulated with Xarelto Xarelto has been stopped today in anticipation for a lumbar puncture. MRI shows moderate white matter cerebral hemisphere small vessel ischemia combined with bilateral and inferiorly in the right cerebellum old lacunar infarcts. Secondary prevention prophylaxis along with continuing with a statin. 6. Chronic back pain Urine drug screen was positive for opiates and cannabinoids. Patient admits to using CBD as well as Vicodin for his chronic back pain. 7. Uncontrolled hypertension Hypertensive excursions to be controlled hydralazine IV PRN with parameters, Clonidine 0.2 mg p.o. twice daily PRN. We will continue patient's p.o. Vasotec, felodipine, oral metoprolol Er succinate to continue. Lipid panel Is essentially unremarkable. 8. History of Psoriatic arthritis Will hold off on methotrexate, Plaquenil, and prednisone as well as Celebrex. Patient does have a history of underlying gout which allopurinol will be resumed. 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 10. Advanced care planning/counseling Discussion with patient spouse along with medical management plan of care and trajectory of illness were discussed in length. Patient's spouse has comfort patient's CODE STATUS to be full code. No POSLT in [facility]. Attestation: Due to patient's continued confusion and encephalopathy will be more than 96 hours to continue with medical management for above medical conditions that require continued inpatient support DVT/GI ppx; H2-iban patient already anticoagulated with Xarelto CODE STATUS: Full code
[2018-06-14 10:41] LABS: INR 1.5 (0.8-1.2); PT - PROTHROMBIN TIME 16.3 secs (9.9-12.6)
[2018-06-14] MEDS: HYDROcod/ACETAM 5/325 MG TABLET PO PRN ×2 (12:09→16:58)
[2018-06-14 12:57] LABS: HEPATITIS A IGM NON-REACTIVE (NON-REACTIVE); HEPATITIS B CORE ANTIBODY IGM NON-REACTIVE (NON-REACTIVE); HEPATITIS B SURFACE ANTIGEN NON-REACTIVE (NON-REACTIVE); HEPATITIS C ANTIBODY NON-REACTIVE (NON-REACTIVE)
[2018-06-14] MEDS: ACYCLOVIR INJ 1,000 MG in SODIUM CHLORIDE 0.9% 250 ML IV SCH ×2 (13:51→21:29)
[2018-06-14 14:18] LABS: HIV AG/AB 4TH GEN NON-REACTIVE (NON-REACTIVE)
[2018-06-14] MEDS: methIMAzole 5 MG TABLET PO SCH (17:39)
[2018-06-14] MEDS: METOPROLOL SUCCINATE 50 MG TABLET PO SCH (20:39)
--- NOTE | 2018-06-14 23:20 | Ultrasound Report ---
Reason: Thyroid disease Procedure Date: 06/14/2018 Accession Number: [id number] / [id number] Procedure: US - Head or Neck Soft Tissue CPT Code: FULL RESULT: EXAM: THYROID ULTRASOUND EXAM DATE: 06/14/2018 08:20 PM. CLINICAL HISTORY: Low TSH. COMPARISON: None. TECHNIQUE: Real time sonographic imaging of the thyroid was performed by the electric meter reader. Multiple sales utility representative static images were saved for review. FINDINGS: THYROID GLAND: Right Lobe: 4.6 x 1.7 x 1.4 cm, volume 5.8 cc. Normal background echotexture. Right Lobe Nodules: There is a circumscribed 9 mm heterogeneous nodule with solid and cystic components at the lower pole. Left Lobe: 4 x 1.1 x 1.6 cm, volume 3.8 cc. Normal background echotexture. Left Lobe Nodules: Contain several tiny cysts measuring up to 2 mm. Isthmus: 0.4 cm AP. Isthmic Nodules: None. LYMPH NODES: No adenopathy demonstrated in the central or lateral compartment. OTHER: None. IMPRESSION: 1. Partially cystic 9 mm right thyroid lobe nodule. 2. Several 1-2 mm left thyroid lobe cysts. Management recommendations are based on 2015 [place] [employer] Management Guidelines for Adult Patients with Thyroid Nodules and Differentiated Thyroid Cancer. RADIA
[2018-06-14] MEDS: ACETAMINOPHEN 325 MG TABLET PO PRN (23:46)
[2018-06-15] MEDS: SODIUM CHLORIDE FLUSH 0.9% 10 ML SYRINGE IVP SCH ×3 (01:41→19:40)
[2018-06-15] MEDS: hydrALAZINE INJ 20 MG/ML VIAL IVP PRN (04:39)
[2018-06-15 05:16] LABS: BASOPHILS # (AUTO) 0.1 10^3/uL (0.0-0.1); BASOPHILS % (AUTO) 0.9 %; EOSINOPHILS # (AUTO) 0.3 10^3/uL (0.0-0.7); EOSINOPHILS % (AUTO) 3.3 %; HGB - HEMOGLOBIN 16.1 g/dL (14.0-18.0); LYMPHOCYTES % (AUTO) 21.2 %; MEAN CORPUSCULAR HEMOGLOBIN 34.4 pg (27.0-31.0); MEAN CORPUSCULAR HGB CONC 33.8 g/dL (32.0-36.0); MEAN CORPUSCULAR VOLUME 101.8 fL (80.0-94.0); MEAN PLATELET VOLUME 8.3 fL (7.4-11.4); MONOCYTES % (AUTO) 10.4 %; NEUTROPHILS # (AUTO) 5.9 10^3/uL (1.5-6.6); NEUTROPHILS % (AUTO) 64.2 %; PLT - PLATELET COUNT 171 10^3/uL (130-450); RED BLOOD COUNT 4.67 10^6/uL (4.70-6.10); RED CELL DISTRIBUTION WIDTH 14.7 % (12.0-15.0); WHITE BLOOD COUNT 9.2 x10^3/uL (4.8-10.8)
[2018-06-15 05:27] LABS: ALBUMIN 3.1 g/dL (3.2-5.5); CALCIUM 9.1 mg/dL (8.5-10.3); CREATININE 0.8 mg/dL (0.6-1.2); PHOSPHORUS 3.5 mg/dL (2.5-4.6)
[2018-06-15] MEDS: ACYCLOVIR INJ 1,000 MG in SODIUM CHLORIDE 0.9% 250 ML IV SCH ×3 (05:54→22:12)
[2018-06-15] MEDS: FELODIPINE ER 2.5 MG TABLET PO SCH (08:19)
[2018-06-15] MEDS: ACETAMINOPHEN 325 MG TABLET PO PRN (08:20)
[2018-06-15] MEDS: POTASSIUM CHLORIDE 10 MEQ CAPSULE PO SCH (08:20)
[2018-06-15] MEDS: FOLIC ACID 1 MG TABLET PO SCH (08:20)
[2018-06-15] MEDS: FAMOTIDINE 20 MG TABLET PO SCH (08:20)
[2018-06-15] MEDS: METOPROLOL SUCCINATE 50 MG TABLET PO SCH (08:20)
[2018-06-15] MEDS: methIMAzole 5 MG TABLET PO SCH (08:20)
[2018-06-15] MEDS: ENALAPRIL 5 MG TABLET PO SCH (08:20)
[2018-06-15] MEDS: POLYETHYLENE GLYCOL 3350 17 GM PACKET PO SCH (08:21)
[2018-06-15] MEDS: SODIUM CHLORIDE 0.9% 1,000 ML IV SCH (08:22)
[2018-06-15] MEDS: ALLOPURINOL 100 MG TABLET PO SCH (08:22)
[2018-06-15] MEDS: NYSTATIN POWDER 15 GM TOP SCH ×2 (08:26→20:54)
[2018-06-15] MEDS: FLUTICASONE NASAL SPRAY NAS SCH (08:27)
[2018-06-15] MEDS ORDERED: FELODIPINE ER 2.5 MG TABLET PO SCH (09:00)
[2018-06-15] MEDS ORDERED: LORazepam 2 MG/ML VIAL IVP SCH (10:00)
[2018-06-15] MEDS ORDERED: FELODIPINE ER 2.5 MG TABLET PO ONE (11:00)
--- NOTE | 2018-06-15 11:28 | MISCELLANEOUS PROVIDER NOTE ---
Miscellaneous Provider Note - - Note: HPI: 78-year-old male with history of hypertension and a atrial fibrillation who is on Xarelto has recently returned from [place] about a week ago and he has been unpacking and working hard until about 3 days ago when he slowed down and stopped doing as much and yesterday he spent pretty much the whole day napping in his easy chair. His was gone yesterday getting an epidural steroid injection and when he returned home he found the patient to be less responsive than usual he thought the patient may be exhausted and when he slept well today last night and was still confused this morning he is brought him here to the emergency department for evaluation. The patient has had some urinary symptoms he has had a headache and he is on Xarelto and he has not been taking his medications which include metoprolol XL and enalapril. Patient's initial blood pressure showed a systolic of 202/139 diastolic slightly RVR A. fib at 104 bpm was given IV and p.o. BP meds which now has come down to 147/103 nontachypneic non-hypoxemic with a controlled rate atrial fibrillation of 94 bpm. Patient's initial hemoglobin was 18.2 with a WBC of 10.5, platelets 164, MCV 102.2 (macrocytosis). Electrolytes were normal with normal renal function creatinine of 0.7. Lactic acid 1.1, T bilirubin 2.0 with normal glucose. TSH <0.08, UDS +opiates and cannibinoids. Initial CT of the head showed diffuse chronic microangiopathic changes. Patient to be admitted for further evaluation manag ement treatment. Subjective: Patient displaying "sundowning". Patient was not given Ambien despite being ordered on his medication for insomnia. No evidence of seizure-like activity. No GI/ symptoms. Objective: Vital signs are hemodynamically stable. Afebrile, Heart rate with variable RVR A. fib 99 200 bpm, blood pressure 178/91, RR of 26, 96% O2 saturation on room air. General: Patient Is confused and disoriented x3, Does verbalize and is responsive to command. HEENT: Pupils are equal round reactive light and accommodation with no gaze abnormality or extraocular muscles being within normal limits. NCAT. No buccal lesions. Neck: No JVD, no bruits, no lymphadenopathy, no thyromegaly, trachea midline CV/lungs: Irregular rate and rhythm, S1-S2 within normal limits no murmurs gallops clicks or rubs. Chest is clear to auscultation bilaterally. Abdomen: Soft nontender nondistended positive bowel sounds all quadrants no hepatosplenomegaly. No bruits. Extremities/skin: No edema clubbing or cyanosis. 2+ pulses dorsalis pedis bilaterally. Neuro: Unable to assess cranial nerves due to patient's confusion. No psychomotor retardation present. Decreased plantar and dorsiflexion on active range of motion to left foot versus right foot. Poor bilateral administrative services officer strength. Labs: Reviewed Imaging: Reviewed Assessment/plan: 1. Acute hypertensive encephalopathy Currently patient appears to have a sundowning type presentation. Will give 1 dose of Ativan in order for him to sleep and have more cognitive awareness. We will continue with up titration of felodipine to 10 mg po daily, previously went up on metoprolol ER succinate, continuation of Vasotec along Clonidine as needed as well as IV hydralazine as needed. The initial aim treatment and hypertensive crisis Should have blood pressure lowered by approximately 10 to 20% during the first hour treatment. Further 5 to 15% over the next 23 hours. However, Neurological symptoms of sundowning has confounded patient's neurological status and patient is approaching 48 hours with this type of neurologic symptoms of suspected persistent hypertensive encephalopathy. This level BP control will allow gradual healing of the necrotizing vascular lesions. More aggressive hypertensive therapy is both unnecessary may reduce the blood pressure below the autoregulatory range, possibly leading to ischemic events. Once a BP is controlled, the patient should be Switched to oral formulation with a diastolic blood pressure being gradually reduced to 85 to 90 mmHg over 2 to 3 months. We will transfer to ICU and start IV nicardipine drip. CT of the head on admission was unremarkable. MRI of the brain shows no acute ischemic insults. There is evidence of bilateral cerebral hemisphere inferiorly in the right cerebellum consistent with old lacunar infarcts. CTA of the head and neck were performed however patient was not properly sedated and essentially a nondiagnostic exam was the result of this. There is no proximal occlusion as per the radiologist however cannot comment on other segments of patient's head and neck. 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 We will continue with Neurochecks, aspiration precautions, control for secondary preventative measures such as statin and patient was previously on Xarelto. Currently on hold for anticipation of a lumbar puncture, would defer on ASA also for this reason. Interestingly patient's urine drug was positive for opiates and cannabinoids. Patient is on vicodin for back pain. Patient certainly is immunocompromised if he has been on prednisone for the treatment of his rheumatoid arthritis and reactivation of HSV type II would be significant in this case. Cardiological work-up has not yielded any evidence for acute heart failure or any left ventricular dysfunction with pulmonary edema that you would otherwise see an echocardiogram which revealed an ejection fraction of 50 to 60% in atrial fibrillation with moderate right atrial enlargement and no evidence of motion wall abnormality, Valvular heart disease or any structural heart disease. There was no vascular emergencies also such as an acute aortic dissection. There was no renal emergencies such as acute hypertensive nephrosclerosis or any ischemic injuries noted. Infectious work-up has yielded non-reactive HIV, hepatitis panel, Flu negative. Serologies for RPR, HSV are pending. Patient is day #2 on IV acyclovir in the setting of patient's prior history of HSV type II. LP indicated, Will need to be off of Xarelto for at least 48 hours. Last dose on 06/13. DDx: Severe automatic dysfunction (i.e. [place] and multiple system atrophy syndromes or acute spinal cord injury), Pheochromocytoma, normal pressure hydrocephalus, neurodegenerative disorder, monoamine oxidase inhibitor with the ingestion of tyramine 2. Subclinical hyperthyroidism Continue with Tapazole for Symptomatic subclinical hyperthyroidism. Patient with abnormal TFTs, almost undetectable TSH along with a free T4 at 3.03, free T3 of 4.81. Thyroid ultrasound Is showing a partial cystic 9 mm right thyroid lobe nodule. Unfortunately isotope cannot be obtained for a nuclear medicine study at this time. Thyroid antibodies have been ordered and are pending. Patient likely will need an outpatient referral to endocrinology as this may be a comorbidity related to patient's prior history of rheumatoid arthritis. 3. Upper and lower extremity weakness Physical therapy is following to assess for gait disturbance and upper and lower extremity weakness which may be attributable to hypertensive encephalopathy. Neurochecks to continue. Control hypertensive excursions. 4. Chronic atrial fibrillation Previously anticoagulated on Xarelto. Xarelto will be currently on hold to achieve a washout for anticipation of a lumbar puncture. Continue with Tapazole for variable RVR A. fib. CHADSVasc 5 pts, 7.2% stroke risk per year. 5. History of CVAs anticoagulated with Xarelto Xarelto has been stopped in anticipation for a lumbar puncture. MRI shows moderate white matter cerebral hemisphere small vessel ischemia combined with bilateral and inferiorly in the right cerebellum old lacunar infarcts. Secondary prevention prophylaxis along with continuing with a statin. 6. Chronic back pain Urine drug screen was positive for opiates and cannabinoids. Patient admits to using CBD as well as Vicodin for his chronic back pain. 7. Uncontrolled hypertension Hypertensive excursions to be controlled hydralazine IV PRN with parameters, Clonidine 0.2 mg p.o. twice daily PRN. We will continue patient's p.o. Vasotec, felodipine, oral metoprolol Er succinate to continue. Lipid panel Is essentially unremarkable. 8. History of Psoriatic arthritis Will hold off on methotrexate, Plaquenil, and prednisone as well as Celebrex. Patient does have a history of underlying gout which allopurinol will be resumed. 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 10. Advanced care planning/counseling Discussion with patient spouse along with medical management plan of care and trajectory of illness were discussed in length. Patient's spouse has comfort patient's CODE STATUS to be full code. [facility] Attestation: Due to patient's continued confusion and encephalopathy will be more than 96 hours to continue with medical management for above medical conditions that require continued inpatient support DVT/GI ppx; H2-iban patient already anticoagulated with Xarelto CODE STATUS: Full code
[2018-06-15] MEDS ORDERED: IOVERSOL 320 100 ML VIAL IVP ONE ×2 (11:54→14:44)
[2018-06-15] MEDS ORDERED: HALOPERIDOL 5 MG/ML VIAL IVP PRN (12:04)
[2018-06-15] MEDS ORDERED: LORazepam 2 MG/ML VIAL IVP STA ×2 (13:02→14:10)
[2018-06-15 13:12] LABS: HSV 1 IGG TYPE SPECIFIC AB <0.90 index; HSV 2 IGG TYPE SPECIFIC AB 6.84 index
[2018-06-15] MEDS: HYDROcod/ACETAM 5/325 MG TABLET PO PRN ×3 (13:36→22:49)
--- NOTE | 2018-06-15 16:46 | CT Report ---
Reason: Persistent encephalopathy Procedure Date: 06/15/2018 Accession Number: [id number] / [id number] Procedure: CT - ANGIO HEAD W CPT Code: FULL RESULT: EXAM: CT ANGIOGRAM HEAD AND NECK. CT SCAN HEAD WITHOUT AND WITH CONTRAST. EXAM DATE: 06/15/2018 02:23 PM. CLINICAL HISTORY: 78-year-old with history of prior stroke presenting with persistent encephalopathy. Evaluate for intracranial pathology or vascular pathology. COMPARISON: CT head 06/13/2018, MRI brain 06/13/2018. TECHNIQUE: Routine axial helical CTA imaging was performed from the aortic arch through the [place]. Routine axial CT imaging of the head was performed prior to and following contrast administration. Reconstructions: Routine multiplanar 3D MIP reconstructions. IV contrast: 160 mL Optiray 320. NASCET Criteria are used for stenosis measurements. In accordance with CT protocol optimization, one or more of the following dose reduction techniques were utilized for this exam: automated exposure control, adjustment of mA and/or KV based on patient size, or use of iterative reconstructive technique. FINDINGS: CT SCAN HEAD: Parenchyma: No acute parenchymal hemorrhage, mass, or midline shift. There is moderate bilateral areas of white matter hypoattenuation seen that appear similar to MR brain 06/13/2018. 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 No definite CT evidence of an acute infarct. Mild to moderate cortical volume loss. Extra-axial Spaces: Normal for age. No subdural or epidural collections identified. Ventricles: Normal in size and position. Sinuses and Orbits: Changes of right lens replacement. Minimal mucosal thickening of the ethmoid air cells. Mastoid air cells and middle ear cavities appear clear. Bones: No evidence of fracture or calvarial defect. Other: Vascular calcifications of the cavernous ICA segments and intradural left vertebral artery. CT ANGIOGRAM HEAD AND NECK: There is poor contrast opacification of the arterial vasculature during the arterial phase which significantly technically limits the evaluation. RIGHT: Common Carotid Artery: The origin of the common carotid artery is not well visualized. The mid and distal common carotid artery appear patent. No definite high-grade stenosis or dissection. Carotid Bulb: There is mild moderate atherosclerotic plaque at the bifurcation and siphon. Stenosis at the bifurcation by NASCET criteria: Less than 50% stenosis. Internal Carotid Artery: There is poor contrast opacification of the cervical ICA. There is atherosclerotic plaque of the cavernous ICA segment with no definite high-grade stenosis seen. No evidence of aneurysm along the intracranial ICA. External Carotid Artery: Unremarkable. Vertebral Artery: The origin of the vertebral arteries not well visualized. There is poor contrast opacification of the V1 through V4 segments. Anterior Cerebral Artery: There is poor contrast opacification of the A1 segment which appears patent. There is poor contrast opacification of the A2 and distal A3 segments which appear patent. No definite aneurysm. Middle Cerebral Artery: There is poor contrast opacification of the M1 segment which appears patent. The M2 and distal MCA vessels are poorly visualized. No definite aneurysm of the proximal MCA. Posterior Cerebral Artery: There is poor contrast opacification of the P1 segment of the left [employer] GR[employer] which appears patent. P2 and distal [employer] branches are poorly visualized on this study. No definite aneurysm. Posterior Communicating Artery: Not definitively seen. No aneurysm. LEFT: Common Carotid Artery: The origin of the common carotid artery is not well visualized. The mid and distal common carotid artery appears patent. No definite high-grade stenosis or dissection. Carotid Bulb: There is mild to moderate atherosclerotic plaque at the bifurcation and siphon. Stenosis at the bifurcation by NASCET criteria: Less than 50% stenosis. Internal Carotid Artery: There is poor contrast opacification of the cervical ICA. There is atherosclerotic plaque of the cavernous ICA segment with no definite high-grade stenosis seen. No evidence of aneurysm along the intracranial ICA. External Carotid Artery: Unremarkable. Vertebral Artery: Patent without significant stenosis. No evidence of dissection. Anterior Cerebral Artery: There is poor contrast opacification of the A1 segment which appears patent. There is poor contrast opacification of the A2 and distal A3 segments which appear patent. No definite aneurysm. Middle Cerebral Artery: There is poor contrast opacification of the M1 segment which appears patent. The M2 and distal MCA vessels are poorly visualized. No definite aneurysm of the proximal MCA. Posterior Cerebral Artery: -type [employer] COFFEE GRINDER. Hypoplastic P1 segment. P2 segment appears patent. Visualization of P3 segment of distal [employer] branches is not possible on this study. No definite aneurysm of the proximal [employer] GR[employer]. Posterior Communicating Artery: Patent with no high-grade stenosis. No aneurysm. CENTRAL: Anterior Communicating Artery: There is a questionable outpouching of the anterior communicating artery measuring 3.3 x 4.4 mm (series 6, image 145) that may represent an aneurysm. Basilar Artery: Patent without significant stenosis. No aneurysm. DURAL VENOUS SINUSES AND MAJOR CENTRAL VEINS: Patent. OTHER: The visualized pharynx and larynx appear normal. Major salivary glands appear normal. Thyroid gland appears normal. No cervical lymphadenopathy or necrotic lymph nodes seen. Soft tissues of the neck appear normal. Dependent atelectatic changes. No acute fracture or traumatic subluxation of the cervical spine. Multilevel degenerative changes. No suspicious osseous lesion. POST-CONTRAST HEAD: No abnormal enhancement. IMPRESSION: CT SCAN HEAD: 1. No definite acute infarct seen. If there is clinical concern for an acute stroke or symptoms persist, an MR brain could be considered to evaluate for a small or subtle pathology. Aspects 10 right/10 left. 2. No acute intracranial hemorrhage, mass, hydrocephalus, or midline shift. No definite abnormal postcontrast enhancement. 3. Moderate white matter changes seen that appear similar to MR brain 06/13/2018 and may represent sequelae of chronic small vessel ischemic disease. CT ANGIOGRAM NECK: 1. There is very poor contrast opacification of the vasculature of the neck which significantly technically limits evaluation. This is considered a nondiagnostic exam for evaluation for high-grade stenosis or dissection. Consider repeat examination or MRA neck for further evaluation. CT ANGIOGRAM HEAD: 1. There is very poor contrast opacification of the intracranial vasculature which significantly technically limits evaluation. The proximal anterior and posterior circulation is minimally visible with no definite occlusion seen. Distal anterior and posterior circulation are not visualized on the angiographic phase, and thus the exam is considered nondiagnostic. Consider repeat examination or MRA head for further evaluation. RADIA The call report notification system was initiated by Dr. Andrea Morris at 04:45 PM on 06/15/2018. The above call report findings were discussed with DYAN Rodney by Dr. Andrea Morris at 04:50 PM on 06/15/2018. EXAM: CT ANGIOGRAM HEAD AND NECK. CT SCAN HEAD WITHOUT AND WITH CONTRAST. EXAM DATE: 06/15/2018 02:23 PM. CLINICAL HISTORY: 78-year-old with history of prior stroke presenting with persistent encephalopathy. Evaluate for intracranial pathology or vascular pathology. COMPARISON: CT head 06/13/2018, MRI brain 06/13/2018. TECHNIQUE: Routine axial helical CTA imaging was performed from the aortic arch through the [place]. Routine axial CT imaging of the head was performed prior to and following contrast administration. Reconstructions: Routine multiplanar 3D MIP reconstructions. IV contrast: 160 mL Optiray 320. NASCET Criteria are used for stenosis measurements. In accordance with CT protocol optimization, one or more of the following dose reduction techniques were utilized for this exam: automated exposure control, adjustment of mA and/or KV based on patient size, or use of iterative reconstructive technique. FINDINGS: CT SCAN HEAD: Parenchyma: No acute parenchymal hemorrhage, mass, or midline shift. There is moderate bilateral areas of white matter hypoattenuation seen that appear similar to MR brain 06/13/2018. 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 No definite CT evidence of an acute infarct. Mild to moderate cortical volume loss. Extra-axial Spaces: Normal for age. No subdural or epidural collections identified. Ventricles: Normal in size and position. Sinuses and Orbits: Changes of right lens replacement. Minimal mucosal thickening of the ethmoid air cells. Mastoid air cells and middle ear cavities appear clear. Bones: No evidence of fracture or calvarial defect. Other: Vascular calcifications of the cavernous ICA segments and intradural left vertebral artery. CT ANGIOGRAM HEAD AND NECK: There is poor contrast opacification of the arterial vasculature during the arterial phase which significantly technically limits the evaluation. RIGHT: Common Carotid Artery: The origin of the common carotid artery is not well visualized. The mid and distal common carotid artery appear patent. No definite high-grade stenosis or dissection. Carotid Bulb: There is mild moderate atherosclerotic plaque at the bifurcation and siphon. Stenosis at the bifurcation by NASCET criteria: Less than 50% stenosis. Internal Carotid Artery: There is poor contrast opacification of the cervical ICA. There is atherosclerotic plaque of the cavernous ICA segment with no definite high-grade stenosis seen. No evidence of aneurysm along the intracranial ICA. External Carotid Artery: Unremarkable.
--- NOTE | 2018-06-15 16:47 | CT Report ---
Reason: Persistent encephalopathy Procedure Date: 06/15/2018 Accession Number: [id number] / [id number] Procedure: CT - ANGIO NECK W/WO CPT Code: FULL RESULT: EXAM: CT ANGIOGRAM HEAD AND NECK. CT SCAN HEAD WITHOUT AND WITH CONTRAST. EXAM DATE: 06/15/2018 02:23 PM. CLINICAL HISTORY: 78-year-old with history of prior stroke presenting with persistent encephalopathy. Evaluate for intracranial pathology or vascular pathology. COMPARISON: CT head 06/13/2018, MRI brain 06/13/2018. TECHNIQUE: Routine axial helical CTA imaging was performed from the aortic arch through the [place]. Routine axial CT imaging of the head was performed prior to and following contrast administration. Reconstructions: Routine multiplanar 3D MIP reconstructions. IV contrast: 160 mL Optiray 320. NASCET Criteria are used for stenosis measurements. In accordance with CT protocol optimization, one or more of the following dose reduction techniques were utilized for this exam: automated exposure control, adjustment of mA and/or KV based on patient size, or use of iterative reconstructive technique. FINDINGS: CT SCAN HEAD: Parenchyma: No acute parenchymal hemorrhage, mass, or midline shift. There is moderate bilateral areas of white matter hypoattenuation seen that appear similar to MR brain 06/13/2018. 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 No definite CT evidence of an acute infarct. Mild to moderate cortical volume loss. Extra-axial Spaces: Normal for age. No subdural or epidural collections identified. Ventricles: Normal in size and position. Sinuses and Orbits: Changes of right lens replacement. Minimal mucosal thickening of the ethmoid air cells. Mastoid air cells and middle ear cavities appear clear. Bones: No evidence of fracture or calvarial defect. Other: Vascular calcifications of the cavernous ICA segments and intradural left vertebral artery. CT ANGIOGRAM HEAD AND NECK: There is poor contrast opacification of the arterial vasculature during the arterial phase which significantly technically limits the evaluation. RIGHT: Common Carotid Artery: The origin of the common carotid artery is not well visualized. The mid and distal common carotid artery appear patent. No definite high-grade stenosis or dissection. Carotid Bulb: There is mild moderate atherosclerotic plaque at the bifurcation and siphon. Stenosis at the bifurcation by NASCET criteria: Less than 50% stenosis. Internal Carotid Artery: There is poor contrast opacification of the cervical ICA. There is atherosclerotic plaque of the cavernous ICA segment with no definite high-grade stenosis seen. No evidence of aneurysm along the intracranial ICA. External Carotid Artery: Unremarkable. Vertebral Artery: The origin of the vertebral arteries not well visualized. There is poor contrast opacification of the V1 through V4 segments. Anterior Cerebral Artery: There is poor contrast opacification of the A1 segment which appears patent. There is poor contrast opacification of the A2 and distal A3 segments which appear patent. No definite aneurysm. Middle Cerebral Artery: There is poor contrast opacification of the M1 segment which appears patent. The M2 and distal MCA vessels are poorly visualized. No definite aneurysm of the proximal MCA. Posterior Cerebral Artery: There is poor contrast opacification of the P1 segment of the left [employer]IATE which appears patent. P2 and distal [employer] branches are poorly visualized on this study. No definite aneurysm. Posterior Communicating Artery: Not definitively seen. No aneurysm. LEFT: Common Carotid Artery: The origin of the common carotid artery is not well visualized. The mid and distal common carotid artery appears patent. No definite high-grade stenosis or dissection. Carotid Bulb: There is mild to moderate atherosclerotic plaque at the bifurcation and siphon. Stenosis at the bifurcation by NASCET criteria: Less than 50% stenosis. Internal Carotid Artery: There is poor contrast opacification of the cervical ICA. There is atherosclerotic plaque of the cavernous ICA segment with no definite high-grade stenosis seen. No evidence of aneurysm along the intracranial ICA. External Carotid Artery: Unremarkable. Vertebral Artery: Patent without significant stenosis. No evidence of dissection. Anterior Cerebral Artery: There is poor contrast opacification of the A1 segment which appears patent. There is poor contrast opacification of the A2 and distal A3 segments which appear patent. No definite aneurysm. Middle Cerebral Artery: There is poor contrast opacification of the M1 segment which appears patent. The M2 and distal MCA vessels are poorly visualized. No definite aneurysm of the proximal MCA. Posterior Cerebral Artery: -type [employer]OCIATE. Hypoplastic P1 segment. P2 segment appears patent. Visualization of P3 segment of distal [employer]ATE branches is not possible on this study. No definite aneurysm of the proximal [employer]OUNT[employer] ASSOCIATE. Posterior Communicating Artery: Patent with no high-grade stenosis. No aneurysm. CENTRAL: Anterior Communicating Artery: There is a questionable outpouching of the anterior communicating artery measuring 3.3 x 4.4 mm (series 6, image 145) that may represent an aneurysm. Basilar Artery: Patent without significant stenosis. No aneurysm. DURAL VENOUS SINUSES AND MAJOR CENTRAL VEINS: Patent. OTHER: The visualized pharynx and larynx appear normal. Major salivary glands appear normal. Thyroid gland appears normal. No cervical lymphadenopathy or necrotic lymph nodes seen. Soft tissues of the neck appear normal. Dependent atelectatic changes. No acute fracture or traumatic subluxation of the cervical spine. Multilevel degenerative changes. No suspicious osseous lesion. POST-CONTRAST HEAD: No abnormal enhancement. IMPRESSION: CT SCAN HEAD: 1. No definite acute infarct seen. If there is clinical concern for an acute stroke or symptoms persist, an MR brain could be considered to evaluate for a small or subtle pathology. Aspects 10 right/10 left. 2. No acute intracranial hemorrhage, mass, hydrocephalus, or midline shift. No definite abnormal postcontrast enhancement. 3. Moderate white matter changes seen that appear similar to MR brain 06/13/2018 and may represent sequelae of chronic small vessel ischemic disease. CT ANGIOGRAM NECK: 1. There is very poor contrast opacification of the vasculature of the neck which significantly technically limits evaluation. This is considered a nondiagnostic exam for evaluation for high-grade stenosis or dissection. Consider repeat examination or MRA neck for further evaluation. CT ANGIOGRAM HEAD: 1. There is very poor contrast opacification of the intracranial vasculature which significantly technically limits evaluation. The proximal anterior and posterior circulation is minimally visible with no definite occlusion seen. Distal anterior and posterior circulation are not visualized on the angiographic phase, and thus the exam is considered nondiagnostic. Consider repeat examination or MRA head for further evaluation. RADIA The call report notification system was initiated by Dr. Andrea Morris at 04:45 PM on 06/15/2018. The above call report findings were discussed with DYAN Rodney by Dr. Andrea Morris at 04:50 PM on 06/15/2018. ADDENDUM: 06/15/18 17:13 Since initial dictation new CTA images of the neck were obtained. There is contrast opacification seen within the vasculature of the neck and head; however, there is extensive motion artifact that significantly technically limited evaluation. These new images are considered nondiagnostic. Repeat examination or MRA of the head or neck should be considered to evaluate the vasculature of the head and neck.
[2018-06-15] MEDS: IOVERSOL 320 100 ML VIAL IVP ONE ×2 (17:13→17:14)
[2018-06-15] MEDS ORDERED: ENALAPRILAT 1.25 MG/ML VIAL IVP SCH (18:00)
[2018-06-15] MEDS ORDERED: LIDOCAINE 2% URO-JET 5 ML SYRINGE UR PRN (18:06)
[2018-06-15] MEDS: niCARdipine 20 MG/200 ML 20 MG/200 ML BAG IV SCH ×3 (19:55→23:16)
[2018-06-15] MEDS: hydrALAZINE INJ 20 MG/ML VIAL IVP SCH (23:44)
[2018-06-16] MEDS: ENALAPRILAT 1.25 MG/ML VIAL IVP SCH ×6 (01:10→21:34)
[2018-06-16] MEDS: METOPROLOL 5 MG/5 ML VIAL IVP SCH ×6 (01:11→20:07)
[2018-06-16] MEDS: SODIUM CHLORIDE FLUSH 0.9% 10 ML SYRINGE IVP SCH ×3 (02:10→18:40)
[2018-06-16] MEDS: SODIUM CHLORIDE 0.9% 1,000 ML IV SCH (02:18)
[2018-06-16 05:31] LABS: BASOPHILS # (AUTO) 0.1 10^3/uL (0.0-0.1); BASOPHILS % (AUTO) 0.7 %; EOSINOPHILS # (AUTO) 0.1 10^3/uL (0.0-0.7); EOSINOPHILS % (AUTO) 1.1 %; HGB - HEMOGLOBIN 18.2 g/dL (14.0-18.0); LYMPHOCYTES # (AUTO) 1.1 10^3/uL (1.5-3.5); LYMPHOCYTES % (AUTO) 8.8 %; MEAN CORPUSCULAR HEMOGLOBIN 33.4 pg (27.0-31.0); MEAN CORPUSCULAR HGB CONC 32.8 g/dL (32.0-36.0); MEAN CORPUSCULAR VOLUME 101.7 fL (80.0-94.0); MEAN PLATELET VOLUME 8.2 fL (7.4-11.4); MONOCYTES # (AUTO) 1.4 10^3/uL (0.0-1.0); MONOCYTES % (AUTO) 10.7 %; NEUTROPHILS % (AUTO) 78.7 %; PLT - PLATELET COUNT 199 10^3/uL (130-450); RED BLOOD COUNT 5.45 10^6/uL (4.70-6.10); RED CELL DISTRIBUTION WIDTH 14.5 % (12.0-15.0); WHITE BLOOD COUNT 12.7 x10^3/uL (4.8-10.8)
[2018-06-16 05:33] LABS: BUN - BLOOD UREA NITROGEN 15 mg/dL (6-20); CARBON DIOXIDE - CO2 21 mmol/L (21-32); CHLORIDE 106 mmol/L (101-111); GFR - MDRD 72 (>89); GLUCOSE 118 mg/dL (70-100); SODIUM 143 mmol/L (135-145)
[2018-06-16 05:45] LABS: ALBUMIN 3.8 g/dL (3.2-5.5); CALCIUM 9.7 mg/dL (8.5-10.3); CREATININE 0.9 mg/dL (0.6-1.2); MAGNESIUM 1.9 mg/dL (1.7-2.8); PHOSPHORUS 4.2 mg/dL (2.5-4.6)
[2018-06-16] MEDS: ACYCLOVIR INJ 1,000 MG in SODIUM CHLORIDE 0.9% 250 ML IV SCH ×3 (06:18→22:23)
[2018-06-16] MEDS: hydrALAZINE INJ 20 MG/ML VIAL IVP SCH ×3 (06:19→22:17)
[2018-06-16] MEDS ORDERED: SODIUM CHLORIDE 0.9% 1,000 ML IV SCH (07:59)
[2018-06-16] MEDS ORDERED: DIGOXIN 500 MCG/2 ML AMP IVP ONE (08:00)
[2018-06-16] MEDS ORDERED: methIMAzole 5 MG TABLET PO SCH (08:02)
[2018-06-16] MEDS: NS W/40 MEQ KCL 1,000 ML IV SCH ×2 (08:18→15:40)
[2018-06-16] MEDS: FOLIC ACID 1 MG TABLET PO SCH (08:30)
[2018-06-16] MEDS: methIMAzole 5 MG TABLET PO SCH (08:30)
[2018-06-16] MEDS: POLYETHYLENE GLYCOL 3350 17 GM PACKET PO SCH (08:31)
[2018-06-16] MEDS: FLUTICASONE NASAL SPRAY NAS SCH (08:57)
[2018-06-16] MEDS: NYSTATIN POWDER 15 GM TOP SCH ×2 (08:57→21:35)
[2018-06-16] MEDS: POTASSIUM CHLORIDE 10 MEQ CAPSULE PO SCH (08:58)
[2018-06-16] MEDS ORDERED: FELODIPINE ER 2.5 MG TABLET PO SCH (09:00)
[2018-06-16] MEDS: ONDANSETRON ODT 4 MG TABLET TL PRN (09:14)
[2018-06-16] MEDS ORDERED: NITROGLYCERIN SL 0.4 MG TABLET SL ONE (11:34)
--- NOTE | 2018-06-16 11:38 | MISCELLANEOUS PROVIDER NOTE ---
Miscellaneous Provider Note - - Note: HPI: 78-year-old male with history of hypertension and a atrial fibrillation who is on Xarelto has recently returned from [place] about a week ago and he has been unpacking and working hard until about 3 days ago when he slowed down and stopped doing as much and yesterday he spent pretty much the whole day napping in his easy chair. His was gone yesterday getting an epidural steroid injection and when he returned home he found the patient to be less responsive than usual he thought the patient may be exhausted and when he slept well today last night and was still confused this morning he is brought him here to the emergency department for evaluation. The patient has had some urinary symptoms he has had a headache and he is on Xarelto and he has not been taking his medications which include metoprolol XL and enalapril. Patient's initial blood pressure showed a systolic of 202/139 diastolic slightly RVR A. fib at 104 bpm was given IV and p.o. BP meds which now has come down to 147/103 nontachypneic non-hypoxemic with a controlled rate atrial fibrillation of 94 bpm. Patient's initial hemoglobin was 18.2 with a WBC of 10.5, platelets 164, MCV 102.2 (macrocytosis). Electrolytes were normal with normal renal function creatinine of 0.7. Lactic acid 1.1, T bilirubin 2.0 with normal glucose. TSH <0.08, UDS +opiates and cannibinoids. Initial CT of the head showed diffuse chronic microangiopathic changes. Patient to be admitted for further evaluation manag ement treatment. Subjective: Patient seen at bedside with improvement to mental status however hypertensive excursions noted. No seizure-like activity. Remains somewhat enc ephalopathic. Objective: Vital signs are hemodynamically stable. Afebrile, Heart rate in RVR A. fib 125 bpm, blood pressure 143/112 (199/112), non-hypoxemic General: Patient is alert, still disoriented x2, does verbalize well and was able to eat breakfast and responds to command now a lot better. HEENT: Pupils are equal round reactive light and accommodation with no gaze abnormality or extraocular muscles being within normal limits. NCAT. No buccal lesions. Neck: No JVD, no bruits, no lymphadenopathy, no thyromegaly, trachea midline CV/lungs: RVR, Irregular rate and rhythm, S1-S2 within normal limits no murmurs gallops clicks or rubs. Chest is clear to auscultation bilaterally. Abdomen: Soft nontender nondistended positive bowel sounds all quadrants no hepatosplenomegaly. No bruits. Extremities/skin: No edema clubbing or cyanosis. 2+ pulses dorsalis pedis bilaterally. Neuro: Decreased dorsi and plantar flexion to the left compared to the right, cranial nerves II to XII grossly intact, no sensory or motor deficits. 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 Labs: Reviewed Imaging: Reviewed 06/16: Tube#3 CSF colorless, WBC/RBC 0, Glu 69, Tprot 62 Assessment/plan: 1. Acute hypertensive encephalopathy Patient was transferred to the ICU due to persistent encephalopathy and hypertension excursions/crisis. Patient appears to have improved mental status currently. Patient having some difficulty word finding. Is able to follow commands a lot better. Still with hypertensive excursions. Patient displaying neurocognitive deficits. Etiology is unclear, Favoring hypertensive encephalopathy versus infectious process. Patient was unable to receive IV nicardipine drip due to shortage, is still having hypertensive excursions with crisis with persistent encephalopathy will switch to IV nitroglycerin drip along with patient scheduled oral hypertensive medications. CT of the head on admission was unremarkable. MRI of the brain shows no acute ischemic insults. There is evidence of bilateral cerebral hemisphere inferiorly in the right cerebellum consistent with old lacunar infarcts. CTA of the head and neck were performed however patient was not properly sedated and essentially a nondiagnostic exam was the result of this. There is no proximal occlusion as per the radiologist however cannot comment on other segments of patient's head and neck. 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 We will continue with Neurochecks, aspiration precautions, control for secondary preventative measures such as statin and patient was previously on Xarelto. Xarelto was held for lumbar puncture now can be restarted. Interestingly patient's urine drug was positive for opiates and cannabinoids. Patient is on vicodin for back pain. Patient certainly is immunocompromised if he has been on prednisone for the treatment of his rheumatoid arthritis and reactivation of HSV type II would be significant in this case. Cardiological work-up has not yielded any evidence for acute heart failure or any left ventricular dysfunction with pulmonary edema that you would otherwise see an echocardiogram which revealed an ejection fraction of 50 to 60% in atrial fibrillation with moderate right atrial enlargement and no evidence of motion wall abnormality, Valvular heart disease or any structural heart disease. There was no vascular emergencies also such as an acute aortic dissection. There was no renal emergencies such as acute hypertensive nephrosclerosis or any ischemic injuries noted. Infectious work-up has yielded non-reactive HIV, hepatitis panel, Flu negative. HSV II IgG 6.84, HSV I IgG <0.90. Serologies for RPR are pending. Patient continues on IV acyclovir in the setting of patient's prior history of HSV type II. CSF Gram stain and culture as well as viral serologies were sent and are pending. Lumbar puncture was unremarkable in terms of opening pressure of 20 mmHg. Clear fluid was extracted on 4 vials. Will obtain CSF for Gram stain and culture, chemistry, LDH, glucose, protein. Will send for viral serologies. Fungal cultures in am. DDx: Severe automatic dysfunction (i.e. Guyon Holloway and multiple system atrophy syndromes or acute spinal cord injury), Pheochromocytoma, normal pressure hydrocephalus, neurodegenerative disorder, monoamine oxidase inhibitor with the ingestion of tyramine 2. Acute renal insufficiency Patient appears hemoconcentrated and might be due to dehydration however possible endorgan damage as it relates to patient's hypertensive excursions cannot be excluded. Will provide renal perfusion increase IV fluids to avoid fluid overload. Avoid nephrotoxic agents, correct underlying electrolyte disturbances. 3. Mild leukocytosis Likely reactive secondary to inflammatory response, will continue to trend, obtain UA w/ reflex Ucx, non-hypoxemic, consider CXR if sx's occur. 4. Subclinical hyperthyroidism Up titration of Tapazole for Symptomatic subclinical hyperthyroidism. Patient with abnormal TFTs, almost undetectable TSH along with a free T4 at 3.03, free T3 of 4.81. Thyroid ultrasound Is showing a partial cystic 9 mm right thyroid lobe nodule. Unfortunately isotope cannot be obtained for a nuclear medicine study at this time. Thyroid antibodies have been ordered and are pending. Patient likely will need an outpatient referral to endocrinology as this may be a comorbidity related to patient's prior history of rheumatoid arthritis. 5. Upper and lower extremity weakness Unclear if this is a result of patient's neurological deterioration from HTN encephalopathy, infectious source or other pathology. Physical therapy is following to assess for gait disturbance and upper and lower extremity weakness which may be attributable to hypertensive encephalopathy. Neurochecks to continue. Control hypertensive excursions. 6. RVR atrial fibrillation Previously anticoagulated on Xarelto. Hx Chronic Afib. Xarelto was held for lumbar puncture. Will restart. RVR A. fib will be addressed with digoxin load 50% of the initial dose then 25% every 6 hours x2 followed by a maintenance dose of 250 mcg p.o. daily. Titrate Tapazole up to 10 mg p.o. 3 times daily for RVR A. fib. CHADSVasc 5 pts, 7.2% stroke risk per year. 7. History of CVAs anticoagulated with Xarelto Xarelto has been stopped in anticipation for a lumbar puncture. May resume Xarelto post-lumbar puncture. MRI shows moderate white matter cerebral hemisphere small vessel ischemia combined with bilateral and inferiorly in the right cerebellum old lacunar infarcts. Secondary prevention prophylaxis along with continuing with a statin. 8. Chronic back pain Urine drug screen was positive for opiates and cannabinoids. Patient admits to using CBD as well as Vicodin for his chronic back pain. 9. Uncontrolled hypertension Despite patient receiving max doses of IV Lopressor, IV Vasotec, and hydralazine still with systolic blood pressures above 180s. Patient will hence be started on a nitroglycerin drip. Continue with oral BP meds. Lipid panel Is essentially unremarkable. Catecholamines have been sent to evaluate for possible underlying pheochromocytoma. 10. History of Psoriatic arthritis Will hold off on methotrexate, Plaquenil, and prednisone as well as Celebrex. Patient does have a history of underlying gout which allopurinol will be resumed. 11. 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 In the setting of patient's encephalopathy this would significantly cause patient's possible viral encephalitis and was started on IV acyclovir. 12. Advanced care planning/counseling Discussion with patient spouse along with medical management plan of care and trajectory of illness were discussed in length. Patient's spouse has comfort patient's CODE STATUS to be full code. No POSLT in [facility]. Attestation: Due to patient's continued confusion and encephalopathy will be more than 96 hours to continue with medical management for above medical conditions that require continued inpatient support DVT/GI ppx; SCD boots to be applied, H2-iban CODE STATUS: Full code Total critical care time: 30 minutes
[2018-06-16] MEDS: NITROGLYCERIN 50 MG/250 ML 50 MG/250 ML BOTTLE IV SCH (11:45)
[2018-06-16] MEDS: HYDROcod/ACETAM 5/325 MG TABLET PO PRN ×2 (14:00→20:18)
[2018-06-16] MEDS: DIGOXIN 500 MCG/2 ML AMP IVP SCH ×2 (14:06→20:07)
[2018-06-16 17:58] LABS: CLARITY,CSF CLEAR (CLEAR); COLOR,CSF COLORLESS (COLORLESS); CSF TUBE # CSF TUBE# 3; CSF XANTHOCHROMIA ABSENT (ABSENT); RED BLOOD CELL,CSF 0 /mm^3 (0-1); WHITE BLOOD CELL,CSF 0 /mm^3 (0-5)
[2018-06-16 17:59] LABS: CSF - GLUCOSE 69 mg/dL (45-70)
[2018-06-16] MEDS ORDERED: NS W/40 MEQ KCL 1,000 ML IV SCH (18:09)
[2018-06-16] MEDS: RIVAROXABAN 10 MG TABLET PO SCH (18:44)
[2018-06-16] MEDS ORDERED: HALOPERIDOL 5 MG/ML VIAL IVP PRN (23:51)
[2018-06-17] MEDS: SODIUM CHLORIDE FLUSH 0.9% 10 ML SYRINGE IVP SCH ×3 (00:07→17:47)
[2018-06-17] MEDS: ACETAMINOPHEN 325 MG TABLET PO PRN (01:19)
[2018-06-17] MEDS: NITROGLYCERIN 50 MG/250 ML 50 MG/250 ML BOTTLE IV SCH ×2 (01:40→14:15)
[2018-06-17] MEDS: METOPROLOL 5 MG/5 ML VIAL IVP SCH ×3 (01:49→13:20)
[2018-06-17] MEDS: ENALAPRILAT 1.25 MG/ML VIAL IVP SCH (02:53)
[2018-06-17] MEDS: HYDROcod/ACETAM 5/325 MG TABLET PO PRN ×3 (02:53→15:20)
[2018-06-17 05:01] LABS: BASOPHILS # (AUTO) 0.1 10^3/uL (0.0-0.1); BASOPHILS % (AUTO) 0.9 %; EOSINOPHILS # (AUTO) 0.3 10^3/uL (0.0-0.7); EOSINOPHILS % (AUTO) 2.8 %; HGB - HEMOGLOBIN 15.4 g/dL (14.0-18.0); LYMPHOCYTES # (AUTO) 1.6 10^3/uL (1.5-3.5); LYMPHOCYTES % (AUTO) 16.6 %; MEAN CORPUSCULAR HEMOGLOBIN 34.1 pg (27.0-31.0); MEAN CORPUSCULAR VOLUME 103.4 fL (80.0-94.0); MEAN PLATELET VOLUME 8.4 fL (7.4-11.4); MONOCYTES % (AUTO) 10.7 %; NEUTROPHILS # (AUTO) 6.7 10^3/uL (1.5-6.6); PLT - PLATELET COUNT 156 10^3/uL (130-450); RED BLOOD COUNT 4.53 10^6/uL (4.70-6.10); RED CELL DISTRIBUTION WIDTH 14.7 % (12.0-15.0); WHITE BLOOD COUNT 9.7 x10^3/uL (4.8-10.8)
[2018-06-17 05:11] LABS: BUN - BLOOD UREA NITROGEN 19 mg/dL (6-20); CALCIUM 8.8 mg/dL (8.5-10.3); CARBON DIOXIDE - CO2 20 mmol/L (21-32); CHLORIDE 109 mmol/L (101-111); CREATININE 1.1 mg/dL (0.6-1.2); GFR - MDRD 65 (>89); GLUCOSE 107 mg/dL (70-100); SODIUM 139 mmol/L (135-145)
[2018-06-17 05:15] LABS: ALBUMIN 3.1 g/dL (3.2-5.5); BUN - BLOOD UREA NITROGEN 19 mg/dL (6-20); CALCIUM 8.7 mg/dL (8.5-10.3); CARBON DIOXIDE - CO2 20 mmol/L (21-32); CHLORIDE 109 mmol/L (101-111); CREATININE 1.1 mg/dL (0.6-1.2); DIGOXIN 1.2 ng/mL; GFR - MDRD 65 (>89); GLUCOSE 106 mg/dL (70-100); PHOSPHORUS 4.1 mg/dL (2.5-4.6); SODIUM 139 mmol/L (135-145)
[2018-06-17] MEDS: hydrALAZINE INJ 20 MG/ML VIAL IVP SCH ×3 (06:01→22:16)
[2018-06-17] MEDS: ACYCLOVIR INJ 1,000 MG in SODIUM CHLORIDE 0.9% 250 ML IV SCH ×3 (06:06→22:19)
[2018-06-17] MEDS ORDERED: OLANZapine ODT 5 MG TABLET TL PRN (07:56)
[2018-06-17] MEDS: POLYETHYLENE GLYCOL 3350 17 GM PACKET PO SCH (08:26)
[2018-06-17] MEDS: FOLIC ACID 1 MG TABLET PO SCH (08:35)
[2018-06-17] MEDS: POTASSIUM CHLORIDE 10 MEQ CAPSULE PO SCH (08:46)
[2018-06-17] MEDS: methIMAzole 5 MG TABLET PO SCH (08:46)
[2018-06-17] MEDS ORDERED: DIGOXIN 125 MCG TABLET PO SCH (09:00)
[2018-06-17] MEDS: FLUTICASONE NASAL SPRAY NAS SCH (09:11)
[2018-06-17] MEDS: NYSTATIN POWDER 15 GM TOP SCH ×2 (09:11→22:12)
--- NOTE | 2018-06-17 11:34 | MISCELLANEOUS PROVIDER NOTE ---
Miscellaneous Provider Note - - Note: HPI: 78-year-old male with history of hypertension and a atrial fibrillation who is on Xarelto has recently returned from [place] about a week ago and he has been unpacking and working hard until about 3 days ago when he slowed down and stopped doing as much and yesterday he spent pretty much the whole day napping in his easy chair. His was gone yesterday getting an epidural steroid injection and when he returned home he found the patient to be less responsive than usual he thought the patient may be exhausted and when he slept well today last night and was still confused this morning he is brought him here to the emergency department for evaluation. The patient has had some urinary symptoms he has had a headache and he is on Xarelto and he has not been taking his medications which include metoprolol XL and enalapril. Patient's initial blood pressure showed a systolic of 202/139 diastolic slightly RVR A. fib at 104 bpm was given IV and p.o. BP meds which now has come down to 147/103 nontachypneic non-hypoxemic with a controlled rate atrial fibrillation of 94 bpm. Patient's initial hemoglobin was 18.2 with a WBC of 10.5, platelets 164, MCV 102.2 (macrocytosis). Electrolytes were normal with normal renal function creatinine of 0.7. Lactic acid 1.1, T bilirubin 2.0 with normal glucose. TSH <0.08, UDS +opiates and cannibinoids. Initial CT of the head showed diffuse chronic microangiopathic changes. Patient to be admitted for further evaluation manag ement treatment. Subjective: Patient was seen at bedside up eating breakfast and with mental status significantly improved however still having some dysarthria and memory de ficits. Objective: Vital signs are hemodynamically stable. Afebrile, Heart rate in RVR A. fib 125 bpm, blood pressure 143/112 (199/112), non-hypoxemic General: Patient is alert, Oriented x2. No acute respiratory distress. Cooperative and calm. HEENT: Pupils are equal round reactive light and accommodation with no gaze abnormality or extraocular muscles being within normal limits. NCAT. No buccal lesions. Neck: No JVD, no bruits, no lymphadenopathy, no thyromegaly, trachea midline CV/lungs: RVR, Irregular rate and rhythm, S1-S2 within normal limits no murmurs gallops clicks or rubs. Chest is clear to auscultation bilaterally. Abdomen: Soft nontender nondistended positive bowel sounds all quadrants no hepatosplenomegaly. No bruits. Extremities/skin: No edema clubbing or cyanosis. 2+ pulses dorsalis pedis bilaterally. Neuro: Neurocognitive deficits present. No psychomotor retardation. Decreased dorsi and plantar flexion to the left compared to the right, cranial nerves II to XII grossly intact, no sensory or motor deficits. 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 Labs: Reviewed Imaging: Reviewed 06/16: Tube#3 CSF colorless, WBC/RBC 0, Glu 69, Tprot 62 Assessment/plan: 1. Acute hypertensive encephalopathy Patient continues on IV nitroglycerin drip for with parameters along with Lopressor 5 mg IV every 6hr, hydralazine 20 mg IV 3 times daily scheduled, will discontinue IV Vasotec due to acute renal insufficiency noted. Delirium has improved significantly however dysarthria with memory and cognitive deficits persist. Lumbar puncture was successful on 06/16 and Xarelto was resumed post lumbar puncture with CSF showing no WBCs or organisms and clear with no obvious abnormalities to indicate a meningeal encephalitis is present. Current infectious work-up is unremarkable. Etiology is unclear, Favoring hypertensive encephalopathy versus infectious process since CSF gram stain is unremarkable with 20 mm Hg opening pressure. May think about discontinuing IV acyclovir. CT of the head on admission was unremarkable. MRI of the brain shows no acute ischemic insults. There is evidence of bilateral cerebral hemisphere inferiorly in the right cerebellum consistent with old lacunar infarcts. CTA of the head and neck were performed however patient was not properly sedated and essentially a nondiagnostic exam was the result of this. There is no proximal occlusion as per the radiologist however cannot comment on other segments of patient's head and neck. 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 We will continue with Neurochecks, aspiration precautions, control for secondary preventative measures such as statin and patient was previously on Xarelto. Xarelto was held for lumbar puncture now can be restarted. Interestingly patient's urine drug was positive for opiates and cannabinoids. Patient is on vicodin for back pain. Patient certainly is immunocompromised if he has been on prednisone for the treatment of his rheumatoid arthritis and reactivation of HSV type II would be significant in this case. Cardiological work-up has not yielded any evidence for acute heart failure or any left ventricular dysfunction with pulmonary edema that you would otherwise see an echocardiogram which revealed an ejection fraction of 55 to 60% in atrial fibrillation with moderate right atrial enlargement and no evidence of motion wall abnormality, Valvular heart disease or any structural heart disease. EKG on 06/17 was abnormal with atrial fibrillation at 121 bpm, probable LVH with secondary re-pole abnormality. Anterior Q waves seen in V1, V2, V3. ST-T wave depressions in II/III/aVF. trops were negative. Asymptomaatic. There was no vascular emergencies also such as an acute aortic dissection. There was no renal emergencies such as acute hypertensive nephrosclerosis or any ischemic injuries noted. Telemetry has yielded some ST wave depression in lead II and 5 may be concerning for ischemia, will obtain a twelve-lead EKG and troponin. Patient is on nitroglycerin drip. Patient on Lopressor IV every 6 as well as hydralazine IV 3 times daily. Not on statin due to lipid panel unremarkable. Infectious work-up has yielded non-reactive HIV, hepatitis panel, Flu negative. HSV II IgG 6.84 (may be positive lifelong), HSV I IgG <0.90. Serologies for RPR are pending. Patient continues on IV acyclovir in the setting of patient's prior history of HSV type II. CSF Gram stain and culture as well as viral serologies were sent and are pending. DDx: Severe automatic dysfunction (i.e. Guyon Holloway and multiple system atrophy syndromes or acute spinal cord injury), Pheochromocytoma, normal pressure hydro cephalus, neurodegenerative disorder, monoamine oxidase inhibitor with the ingestion of tyramine 2. Acute renal insufficiency Secondary to mild dehydration and the use of IV Vasotec. Patient appears to be euvolemic. Will provide renal perfusion increase IV fluids to avoid fluid overload. Avoid nephrotoxic agents, correct underlying electrolyte disturbances. 3. Subclinical hyperthyroidism Up titration of Tapazole for Symptomatic subclinical hyperthyroidism. Patient with abnormal TFTs, almost undetectable TSH along with a free T4 at 3.03, free T3 of 4.81. Thyroid ultrasound Is showing a partial cystic 9 mm right thyroid lobe nodule. Unfortunately isotope cannot be obtained for a nuclear medicine study at this time. Thyroid antibodies have been ordered and are pending. Patient likely will need an outpatient referral to endocrinology as this may be a comorbidity related to patient's prior history of rheumatoid arthritis. 4. Upper and lower extremity weakness Patient has not been able to ambulate independently. Unclear if this is a result of patient's neurological deterioration from HTN encephalopathy, infectious source or other pathology. Physical therapy will need to be re-consulted to assess for gait disturbance and upper and lower extremity weakness which may be attributable to hypertensive encephalopathy. Neurochecks to continue. Control hypertensive excursions. 5. RVR atrial fibrillation Previously anticoagulated on Xarelto. Status post digoxin loading with maintenance dose at 250 mcg p.o. daily. Despite this still with HR in 120's. Would consider placing on amiodarone 150 mg IV x1/10 minutes, then 1 mg/min IV for 6 hours, them with a drip 0.5 mg/min IV for 18 hours. Hx Chronic Afib. Xarelto Has been restarted. Continue with Tapazole up to 10 mg p.o. 3 times daily in the setting of RVR A. fib. CHADSVasc 5 pts, 7.2% stroke risk per year. 6. History of CVAs anticoagulated with Xarelto Patient continues on Xarelto. MRI shows moderate white matter cerebral hemisphere small vessel ischemia combined with bilateral and inferiorly in the right cerebellum old lacunar infarcts. Secondary prevention prophylaxis along with continuing with a statin. 7. Chronic back pain Urine drug screen was positive for opiates and cannabinoids. Patient admits to using CBD as well as Vicodin for his chronic back pain. 8. Uncontrolled hypertension Continuation on IV Lopressor, hydralazine 3 times daily with parameters. IV Vasotec was discontinued. Continues on nitroglycerin drip. Lipid panel was essentially unremarkable. Catecholamines have been sent to evaluate for possible underlying pheochromocytoma. 9. History of Psoriatic arthritis Previously on methotrexate, Plaquenil, and prednisone as well as Celebrex. Patient does have a history of underlying gout, Previously on allopurinol. 10. 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 In the setting of patient's encephalopathy IV acyclovir was initiated. 11. Advanced care planning/counseling Discussion with patient spouse along with medical management plan of care and trajectory of illness were discussed in length. Patient's spouse has comfort patient's CODE STATUS to be full code. No POSLT in [facility]. Attestation: Due to patient's continued confusion and encephalopathy will be more than 96 hours to continue with medical management for above medical conditions that require continued inpatient support DVT/GI ppx; SCD boots to be applied, H2-iban CODE STATUS: Full code Total critical care time: 30 minutes
[2018-06-17] MEDS: NS W/40 MEQ KCL 1,000 ML IV SCH ×3 (11:59→22:35)
[2018-06-17] MEDS: RIVAROXABAN 10 MG TABLET PO SCH (17:47)
[2018-06-17] MEDS ORDERED: AMIODARONE 360 MG/200 ML 200 ML IV ONE (19:00)
[2018-06-17] MEDS ORDERED: AMIODARONE 150 MG/100 ML 100 ML IV ONE (19:00)
[2018-06-17] MEDS ORDERED: METOPROLOL SUCCINATE 25 MG TABLET PO SCH (21:00)
--- NOTE | 2018-06-17 23:25 | XRAY Report ---
Reason: check right IJ triple lumen central line Procedure Date: 06/17/2018 Accession Number: [id number] / [id number] Procedure: XR - Chest for Line Placement CPT Code: FULL RESULT: EXAM: CHEST RADIOGRAPHY EXAM DATE: 06/17/2018 10:07 PM. CLINICAL HISTORY: Line placement COMPARISON: None. TECHNIQUE: 1 view. FINDINGS: Lungs/Pleura: Lung volumes are low, producing crowding of the pulmonary vasculature. No focal infiltrate, effusion, or pneumothorax. Mediastinum: Within exam limitations, the cardiomediastinal contour is normal. Other: Right jugular central venous catheter terminating in the superior vena cava. IMPRESSION: Right jugular central venous catheter terminating in the superior vena cava. RADIA
[2018-06-18] MEDS: NS W/40 MEQ KCL 1,000 ML IV SCH ×4 (01:50→09:21)
[2018-06-18] MEDS: SODIUM CHLORIDE FLUSH 0.9% 10 ML SYRINGE IVP SCH ×3 (01:50→16:57)
[2018-06-18] MEDS ORDERED: LORazepam 1 MG TABLET PO PRN (03:13)
[2018-06-18] MEDS: AMIODARONE 360 MG/200 ML 200 ML IV SCH ×2 (03:39→09:32)
[2018-06-18] MEDS ORDERED: NITROGLYCERIN 50 MG/250 ML 50 MG/250 ML BOTTLE IV ONE (03:51)
[2018-06-18] MEDS ORDERED: NITROGLYCERIN 50 MG/250 ML 50 MG/250 ML BOTTLE IV SCH ×2 (04:00)
[2018-06-18 05:12] LABS: BASOPHILS # (AUTO) 0.1 10^3/uL (0.0-0.1); BASOPHILS % (AUTO) 0.8 %; EOSINOPHILS # (AUTO) 0.1 10^3/uL (0.0-0.7); EOSINOPHILS % (AUTO) 1.5 %; HGB - HEMOGLOBIN 14.9 g/dL (14.0-18.0); LYMPHOCYTES # (AUTO) 1.3 10^3/uL (1.5-3.5); MEAN CORPUSCULAR HGB CONC 33.4 g/dL (32.0-36.0); MEAN CORPUSCULAR VOLUME 101.7 fL (80.0-94.0); MEAN PLATELET VOLUME 8.4 fL (7.4-11.4); MONOCYTES % (AUTO) 10.4 %; NEUTROPHILS # (AUTO) 6.9 10^3/uL (1.5-6.6); NEUTROPHILS % (AUTO) 73.3 %; PLT - PLATELET COUNT 166 10^3/uL (130-450); RED CELL DISTRIBUTION WIDTH 14.3 % (12.0-15.0); WHITE BLOOD COUNT 9.4 x10^3/uL (4.8-10.8)
[2018-06-18 05:26] LABS: ALBUMIN 3.2 g/dL (3.2-5.5); CALCIUM 8.8 mg/dL (8.5-10.3); CREATININE 0.8 mg/dL (0.6-1.2); PHOSPHORUS 3.8 mg/dL (2.5-4.6)
[2018-06-18] MEDS: ACYCLOVIR INJ 1,000 MG in SODIUM CHLORIDE 0.9% 250 ML IV SCH ×3 (05:44→22:30)
[2018-06-18] MEDS: hydrALAZINE INJ 20 MG/ML VIAL IVP SCH (06:06)
[2018-06-18] MEDS: POTASSIUM CHLORIDE 10 MEQ CAPSULE PO SCH (07:43)
[2018-06-18] MEDS ORDERED: MAGNESIUM SULFATE 2 GRAM 2 GM/50 ML BAG IV ONE (07:58)
[2018-06-18] MEDS: NYSTATIN POWDER 15 GM TOP SCH ×2 (08:05→22:31)
[2018-06-18] MEDS: ONDANSETRON ODT 4 MG TABLET TL PRN ×2 (08:32→17:22)
[2018-06-18] MEDS: FOLIC ACID 1 MG TABLET PO SCH (08:45)
[2018-06-18] MEDS: methIMAzole 5 MG TABLET PO SCH (08:45)
[2018-06-18] MEDS ORDERED: METOPROLOL SUCCINATE 50 MG TABLET PO SCH (09:00)
[2018-06-18] MEDS: POLYETHYLENE GLYCOL 3350 17 GM PACKET PO SCH (09:18)
[2018-06-18] MEDS: hydrALAZINE 25 MG TABLET PO SCH ×4 (09:38→21:16)
[2018-06-18] MEDS: FLUTICASONE NASAL SPRAY NAS SCH (09:47)
[2018-06-18] MEDS ORDERED: METOPROLOL SUCCINATE 25 MG TABLET PO ONE (10:00)
[2018-06-18] MEDS ORDERED: SODIUM CHLORIDE FLUSH 0.9% 10 ML SYRINGE ONE (11:57)
[2018-06-18] MEDS: ISOSORBIDE MONONITRATE ER 30 MG TABLET PO SCH (12:41)
--- NOTE | 2018-06-18 14:20 | PROVIDER PROGRESS NOTE ---
Assessment/Plan - Problem List (1) Hypertensive encephalopathy syndrome Assessment/Plan: Other etiologies were ruled out: not hemorrhagic, presumably not infectious after LP done and patient has been on antiviral medication for several datys. His elevated BP was also evaluated for pheochromocytoma with 24 hour catecolamine collection (although he was on B-iban at the time0. Will advance his B-iban dose and change iv Hydralazine to po and titrate iv NTG to off and start Imdur orally daily. Will also restart his FREEDOM-I. Will also adjust his diet to Low Salt. Remain in ICU. (2) Atrial fibrillation with RVR Assessment/Plan: HR still tachycardiac at 113 bpm this am. Since he is able to swallow, will advance his B-iban dose. Continue iv Amiodarone today, will stop tomorrow. Patient had his Xarelto resumed after the LP. Continue daily Xarelto dose with dinner. (3) Hyperthyroidism determined by thyroid function test Assessment/Plan: He needs more aggressive B-blockade, since he is still tachycardiac at rest. W ill increase the Metoprolol Succ dose. His W/U here had already found a thyroid nodule. Further eval and treatment by Endocrinology planned. (4) History of lacunar cerebrovascular accident (CVA) Assessment/Plan: This was seen on brain MRI, along with "small vessel ischemic disease". The ER note stated that he has some dementia already. 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 Continue anticoagulant, will add an antiplatelet and assure he has cholesterol control. (5) Aortic stenosis, mild Assessment/Plan: The Echo showed mild and AI. His murmur is inaudible though. (6) Pulmonary HTN Assessment/Plan: The Echo showed PA pressure 44 mmHg, consistent with mild pulm HTN. Will plan on decreasing his iv rate, now that he is eating, to decrease volume load. (7) HSV-2 seropositive Assessment/Plan: He has been on iv Acyclovir for the possibility of viral encephalitis. (8) Hx of psoriatic arthritis Assessment/Plan: He was on Plaquenil before admission. Will resume po meds. (9) Chronic back pain Assessment/Plan: Urine drug screen was positive for opiates and cannabinoids. Patient admits to using CBD as well as Vicodin for his chronic back pain. - Current Meds Current Meds: Current Medications Generic Name Dose Route Start Last Admin Trade Name Freq PRN Reason Stop Dose Admin Acetaminophen 650 mg 06/13/18 13:55 06/17/18 01:19 Tylenol PO 650 mg Q4HR PRN Administration Pain 1 to 4 Hydrocodone Bitart/Acetaminophen 1 tab 06/14/18 11:45 06/17/18 15:20 Premont 5/325 PO 1 tab Q4HR PRN Administration PAIN Fluticasone Propionate 2 sprays 06/14/18 09:00 06/18/18 09:47 Flonase JAMIN 2 spray DAILY TERRY Administration Folic Acid 1 mg 06/14/18 09:00 06/18/18 08:45 PO 1 mg DAILY TERRY Administration Hydralazine HCl 50 mg 06/18/18 09:00 06/18/18 13:00 Apresoline PO 50 mg QID TERRY Administration Acyclovir 1,000 mg/ Sodium 270 mls @ 250 mls/hr 06/14/18 14:00 06/18/18 13:46 Chloride IV 250 mls/hr TID TERRY Administration Amiodarone HCl/Dextrose 200 mls @ 16.667 mls/hr 06/18/18 01:00 06/18/18 09:32 Nexterone 360 Mg/200 Ml IV 0.5 mg/min .Q12H TERRY 16.667 mls/hr Administration 0.5 MG/MIN Nitroglycerin 50 mg in 250 mls @ 1.5 mls/hr 06/18/18 04:00 06/18/18 14:06 Nitroglycerin IV 06/18/18 16:00 30 mcg/min .Q72H TERRY 9 mls/hr Titration Protocol 5 MCG/MIN Potassium Chloride/Sodium Chloride 1,000 mls @ 40 mls/hr 06/18/18 08:57 06/18/18 13:49 Normal Saline 0.9% W/40 Meq Kcl IV 0 mls/hr .Q25H TERRY Infusion Isosorbide Mononitrate 60 mg 06/18/18 12:00 06/18/18 12:41 Imdur PO 60 mg DAILY TERRY Administration Lidocaine HCl 2.5 ml 06/15/18 18:06 06/15/18 18:48 Xylocaine Uro-Jet 2% UR 2.5 ml Q6HR PRN Administration PAIN Methimazole 10 mg 06/16/18 08:15 06/18/18 08:45 Tapazole PO 10 mg DAILYWM TERRY Administration Nystatin 1 applic 06/14/18 09:00 06/18/18 08:05 Nystop TOP 1 applic BID TERRY Administration Olanzapine 2.5 mg 06/17/18 07:56 06/17/18 22:17 Zyprexa Odt TL 2.5 mg TID PRN Administration psychosis Ondansetron HCl 4 mg 06/13/18 13:55 06/18/18 08:32 Zofran Odt TL 4 mg Q6HR PRN Administration Nausea / Vomiting Polyethylene Glycol 17 gm 06/14/18 09:00 06/18/18 09:18 Miralax PO 17 gm DAILY TERRY Administration Potassium Chloride 10 meq 06/14/18 09:00 06/18/18 07:43 Micro-K PO Not Given DAILY TERRY Rivaroxaban 20 mg 06/16/18 18:00 06/17/18 17:47 Xarelto PO 20 mg 1700 TERRY Administration Sodium Chloride 10 ml 06/13/18 17:00 06/18/18 08:15 Normal Saline Flush 0.9% IVP 10 ml 0100,0900,1700 TERRY Administration - Lab Result Fish Bone Diagrams: 06/18/18 04:30 06/18/18 04:30 - Additional Planning My Orders: My Active Orders 06/18/18 08:57 Ns W/40 Meq KCl [Normal Saline 0.9% W/40 Meq KCl] 1,000 ml IV 40 mls/hr 06/18/18 08:59 Miscellaenous Nursing Order [RC] ONCE 06/18/18 09:00 hydrALAZINE [Apresoline] 50 mg PO QID 06/18/18 12:00 Isosorbide Mononitrate ER [Imdur] 60 mg PO DAILY 06/18/18 21:00 Metoprolol Succinate [Toprol Xl] 100 mg PO BID Subjective - Subjective Nursing Reports: Confused, Other (More lethargic than yesterday, did not sleep last night, is able to swallow, needs to be fed) Objective Vital Signs: Vital Signs - 24 hr 06/17/18 06/17/18 06/17/18 14:30 14:52 14:55 Temperature Heart Rate Heart Rate [ Activity] Heart Rate [ 90 97 Monitoring electrodes] Heart Rate [ Sitting] Heart Rate [ Supine] Respiratory 17 Rate Blood Pressure 167/85 H Blood Pressure [Activity] Blood Pressure [Left Brachial artery] Blood Pressure [Left Radial artery] Blood Pressure 151/99 H 151/88 H [Right Brachial artery] Blood Pressure [Sitting] Blood Pressure [Supine] O2 Saturation 94 06/17/18 06/17/18 06/17/18 15:00 15:15 15:30 Temperature Heart Rate Heart Rate [ Activity] Heart Rate [ 120 H 110 H 112 H Monitoring electrodes] Heart Rate [ Sitting] Heart Rate [ Supine] Respiratory 21 19 Rate Blood Pressure Blood Pressure [Activity] Blood Pressure [Left Brachial artery] Blood Pressure [Left Radial artery] Blood Pressure 146/77 H 149/105 H 158/85 H [Right Brachial artery] Blood Pressure [Sitting] Blood Pressure [Supine] O2 Saturation 95 96 06/17/18 06/17/18 06/17/18 15:35 16:00 17:00 Temperature 37.2 C Heart Rate Heart Rate [ 111 H Activity] Heart Rate [ 97 107 H Monitoring electrodes] Heart Rate [ 121 H Sitting] Heart Rate [ 120 H Supine] Respiratory 22 32 H Rate Blood Pressure Blood Pressure 162/84 H [Activity] Blood Pressure [Left Brachial artery] Blood Pressure [Left Radial artery] Blood Pressure 148/78 H 157/105 H [Right Brachial artery] Blood Pressure 180/97 H [Sitting] Blood Pressure 158/85 H [Supine] O2 Saturation 96 96 06/17/18 06/17/18 06/17/18 18:00 18:30 18:45 Temperature Heart Rate Heart Rate [ Activity] Heart Rate [ 119 H 120 H 116 H Monitoring electrodes] Heart Rate [ Sitting] Heart Rate [ Supine] Respiratory 26 H 26 H 27 H Rate Blood Pressure Blood Pressure [Activity] Blood Pressure [Left Brachial artery] Blood Pressure [Left Radial artery] Blood Pressure 167/96 H 161/98 H 152/86 H [Right Brachial artery] Blood Pressure [Sitting] Blood Pressure [Supine] O2 Saturation 93 95 95 06/17/18 06/17/18 06/17/18 19:00 20:00 21:00 Temperature 37.2 C Heart Rate Heart Rate [ Activity] Heart Rate [ 112 H 97 98 Monitoring electrodes] Heart Rate [ Sitting] Heart Rate [ Supine] Respiratory 30 H 23 24 Rate Blood Pressure Blood Pressure [Activity] Blood Pressure 134/74 H 162/80 H 139/98 H [Left Brachial artery] Blood Pressure [Left Radial artery] Blood Pressure [Right Brachial artery] Blood Pressure [Sitting] Blood Pressure [Supine] O2 Saturation 95 96 96 06/17/18 06/17/18 06/18/18 22:00 23:00 00:00 Temperature 37.1 C Heart Rate Heart Rate [ Activity] Heart Rate [ 106 H 112 H 103 H Monitoring electrodes] Heart Rate [ Sitting] Heart Rate [ Supine] Respiratory 20 33 H 23 Rate Blood Pressure Blood Pressure [Activity] Blood Pressure 193/115 H 142/93 H 178/92 H [Left Brachial artery] Blood Pressure [Left Radial artery] Blood Pressure [Right Brachial artery] Blood Pressure [Sitting] Blood Pressure [Supine] O2 Saturation 96 93 95 06/18/18 06/18/18 06/18/18 00:30 01:00 02:00 Temperature Heart Rate 96 Heart Rate [ Activity] Heart Rate [ 106 H 105 H Monitoring electrodes] Heart Rate [ Sitting] Heart Rate [ Supine] Respiratory 29 H 21 23 Rate Blood Pressure Blood Pressure [Activity] Blood Pressure 166/97 H 164/113 H [Left Brachial artery] Blood Pressure [Left Radial artery] Blood Pressure [Right Brachial artery] Blood Pressure [Sitting] Blood Pressure [Supine] O2 Saturation 95 96 06/18/18 06/18/18 06/18/18 03:00 03:01 03:02 Temperature Heart Rate 97 88 Heart Rate [ Activity] Heart Rate [ 100 Monitoring electrodes] Heart Rate [ Sitting] Heart Rate [ Supine] Respiratory 23 35 H 26 H Rate Blood Pressure 177/97 H Blood Pressure [Activity] Blood Pressure 177/97 H [Left Brachial artery] Blood Pressure [Left Radial artery] Blood Pressure [Right Brachial artery] Blood Pressure [Sitting] Blood Pressure [Supine] O2 Saturation 96 06/18/18 06/18/18 06/18/18 03:32 03:33 04:00 Temperature 37.0 C Heart Rate 98 101 H 83 Heart Rate [ Activity] Heart Rate [ 88 Monitoring electrodes] Heart Rate [ Sitting] Heart Rate [ Supine] Respiratory 30 H 25 H 28 H Rate Blood Pressure 185/144 H Blood Pressure [Activity] Blood Pressure [Left Brachial artery] Blood Pressure 187/110 H [Left Radial artery] Blood Pressure [Right Brachial artery] Blood Pressure [Sitting] Blood Pressure [Supine] O2 Saturation 96 06/18/18 06/18/18 06/18/18 04:01 04:31 04:32 Temperature Heart Rate 89 95 84 Heart Rate [ Activity] Heart Rate [ Monitoring electrodes] Heart Rate [ Sitting] Heart Rate [ Supine] Respiratory 32 H 23 24 Rate Blood Pressure 187/110 H 192/108 H Blood Pressure [Activity] Blood Pressure [Left Brachial artery] Blood Pressure [Left Radial artery] Blood Pressure [Right Brachial artery] Blood Pressure [Sitting] Blood Pressure [Supine] O2 Saturation 06/18/18 06/18/18 06/18/18 05:00 05:01 05:02 Temperature Heart Rate 91 94 Heart Rate [ Activity] Heart Rate [ 82 Monitoring electrodes] Heart Rate [ Sitting] Heart Rate [ Supine] Respiratory 28 H 34 H 29 H Rate Blood Pressure 128/93 H Blood Pressure [Activity] Blood Pressure 128/93 H [Left Brachial artery] Blood Pressure [Left Radial artery] Blood Pressure [Right Brachial artery] Blood Pressure [Sitting] Blood Pressure [Supine] O2 Saturation 96 06/18/18 06/18/18 06/18/18 05:34 05:35 05:47 Temperature Heart Rate 91 102 H 95 Heart Rate [ Activity] Heart Rate [ Monitoring electrodes] Heart Rate [ Sitting] Heart Rate [ Supine] Respiratory 28 H 30 H 31 H Rate Blood Pressure 228/92 H Blood Pressure [Activity] Blood Pressure [Left Brachial artery] Blood Pressure [Left Radial artery] Blood Pressure [Right Brachial artery] Blood Pressure [Sitting] Blood Pressure [Supine] O2 Saturation 06/18/18 06/18/18 06/18/18 05:48 06:00 06:01 Temperature Heart Rate 86 93 90 Heart Rate [ Activity] Heart Rate [ 95 Monitoring electrodes] Heart Rate [ Sitting] Heart Rate [ Supine] Respiratory 33 H 32 H 33 H Rate Blood Pressure 190/105 H 183/118 H Blood Pressure [Activity] Blood Pressure 183/118 H [Left Brachial artery] Blood Pressure [Left Radial artery] Blood Pressure [Right Brachial artery] Blood Pressure [Sitting] Blood Pressure [Supine] O2 Saturation 95 06/18/18 06/18/18 06/18/18 06:05 06:06 06:10 Temperature Heart Rate 93 94 83 Heart Rate [ Activity] Heart Rate [ 91 93 Monitoring electrodes] Heart Rate [ Sitting] Heart Rate [ Supine] Respiratory 23 28 H 30 H Rate Blood Pressure 185/90 H Blood Pressure [Activity] Blood Pressure 185/90 H 172/90 H [Left Brachial artery] Blood Pressure [Left Radial artery] Blood Pressure [Right Brachial artery] Blood Pressure [Sitting] Blood Pressure [Supine] O2 Saturation 95 96 06/18/18 06/18/18 06/18/18 06:11 06:15 06:16 Temperature Heart Rate 93 104 H 107 H Heart Rate [ Activity] Heart Rate [ 101 H Monitoring electrodes] Heart Rate [ Sitting] Heart Rate [ Supine] Respiratory 23 25 H 25 H Rate Blood Pressure 172/90 H 171/105 H Blood Pressure [Activity] Blood Pressure 171/105 H [Left Brachial artery] Blood Pressure [Left Radial artery] Blood Pressure [Right Brachial artery] Blood Pressure [Sitting] Blood Pressure [Supine] O2 Saturation 95 06/18/18 06/18/18 06/18/18 06:25 06:30 06:31 Temperature Heart Rate 88 119 H 108 H Heart Rate [ Activity] Heart Rate [ Monitoring electrodes] Heart Rate [ Sitting] Heart Rate [ Supine] Respiratory 32 H 22 30 H Rate Blood Pressure 146/66 H Blood Pressure [Activity] Blood Pressure [Left Brachial artery] Blood Pressure [Left Radial artery] Blood Pressure [Right Brachial artery] Blood Pressure [Sitting] Blood Pressure [Supine] O2 Saturation 06/18/18 06/18/18 06/18/18 06:35 07:00 08:00 Temperature 37.0 C Heart Rate 103 H Heart Rate [ Activity] Heart Rate [ 110 H 103 H Monitoring electrodes] Heart Rate [ Sitting] Heart Rate [ Supine] Respiratory 31 H 21 28 H Rate Blood Pressure Blood Pressure [Activity] Blood Pressure [Left Brachial artery] Blood Pressure 150/105 H 155/86 H [Left Radial artery] Blood Pressure [Right Brachial artery] Blood Pressure [Sitting] Blood Pressure [Supine] O2 Saturation 95 97 06/18/18 06/18/18 06/18/18 08:54 09:48 10:00 Temperature Heart Rate Heart Rate [ Activity] Heart Rate [ 95 100 86 Monitoring electrodes] Heart Rate [ Sitting] Heart Rate [ Supine] Respiratory 27 H 28 H 30 H Rate Blood Pressure Blood Pressure [Activity] Blood Pressure [Left Brachial artery] Blood Pressure 129/78 150/76 H 127/66 [Left Radial artery] Blood Pressure [Right Brachial artery] Blood Pressure [Sitting] Blood Pressure [Supine] O2 Saturation 95 96 95 06/18/18 06/18/18 06/18/18 10:05 10:10 10:15 Temperature Heart Rate Heart Rate [ Activity] Heart Rate [ 87 86 84 Monitoring electrodes] Heart Rate [ Sitting] Heart Rate [ Supine] Respiratory Rate Blood Pressure Blood Pressure [Activity] Blood Pressure [Left Brachial artery] Blood Pressure 131/89 H 141/70 H 147/99 H [Left Radial artery] Blood Pressure [Right Brachial artery] Blood Pressure [Sitting] Blood Pressure [Supine] O2 Saturation 06/18/18 06/18/18 06/18/18 10:30 10:45 11:00 Temperature 37.2 C Heart Rate Heart Rate [ Activity] Heart Rate [ 83 88 82 Monitoring electrodes] Heart Rate [ Sitting] Heart Rate [ Supine] Respiratory 30 H Rate Blood Pressure Blood Pressure [Activity] Blood Pressure [Left Brachial artery] Blood Pressure 159/83 H 163/90 H 131/81 H [Left Radial artery] Blood Pressure [Right Brachial artery] Blood Pressure [Sitting] Blood Pressure [Supine] O2 Saturation 95 06/18/18 06/18/18 06/18/18 11:25 11:30 12:00 Temperature 37.2 C Heart Rate Heart Rate [ Activity] Heart Rate [ 92 80 96 Monitoring electrodes] Heart Rate [ Sitting] Heart Rate [ Supine] Respiratory 28 H Rate Blood Pressure Blood Pressure [Activity] Blood Pressure [Left Brachial artery] Blood Pressure 141/77 H 160/90 H 168/95 H [Left Radial artery] Blood Pressure [Right Brachial artery] Blood Pressure [Sitting] Blood Pressure [Supine] O2 Saturation 95 06/18/18 06/18/18 06/18/18 13:00 13:38 14:00 Temperature Heart Rate Heart Rate [ Activity] Heart Rate [ 87 79 72 Monitoring electrodes] Heart Rate [ Sitting] Heart Rate [ Supine] Respiratory 34 H 24 Rate Blood Pressure Blood Pressure [Activity] Blood Pressure [Left Brachial artery] Blood Pressure 164/92 H 125/64 127/63 [Left Radial artery] Blood Pressure [Right Brachial artery] Blood Pressure [Sitting] Blood Pressure [Supine] O2 Saturation 95 94 Oxygen O2 Source Room air I&O (Last 24 Hrs): Intake and Output Totals x24h 06/16/18 06/17/18 06/18/18 23:59 23:59 23:59 Intake Total 4825.728 6957.850 3424.625 Output Total 5253 4646 2325 Balance 2555.728 2327.850 1099.625 General: Other (Lethargic, but opens eyes to name and to light touch and starts to answer) HEENT: Mucous membr. moist/pink Neck: Supple, No JVD Neuro: Disoriented, Speech Slurred, Other (Lethargic) Cardiovascular: No murmurs, Other (Irreg rhythm) Respiratory: No respiratory distress, Breath sounds nml Abdomen: Soft, Other (LUQ firm mass (?rib)) Extremities: No clubbing, No edema - Results Results: Laboratory Results WBC 9.4 x10^3/uL (4.8-10.8) 06/18/18 04:30 RBC 4.40 10^6/uL (4.70-6.10) L 06/18/18 04:30 Hgb 14.9 g/dL (14.0-18.0) 06/18/18 04:30 Hct 44.7 % (42.0-52.0) 06/18/18 04:30 MCV 101.7 fL (80.0-94.0) H 06/18/18 04:30 MCH 34.0 pg (27.0-31.0) H 06/18/18 04:30 MCHC 33.4 g/dL (32.0-36.0) 06/18/18 04:30 RDW 14.3 % (12.0-15.0) 06/18/18 04:30 Plt Count 166 10^3/uL (130-450) 06/18/18 04:30 MPV 8.4 fL (7.4-11.4) 06/18/18 04:30 Neut # (Auto) 6.9 10^3/uL (1.5-6.6) H 06/18/18 04:30 Lymph # (Auto) 1.3 10^3/uL (1.5-3.5) L 06/18/18 04:30 [place] # (Auto) 1.0 10^3/uL (0.0-1.0) 06/18/18 04:30 Eos # (Auto) 0.1 10^3/uL (0.0-0.7) 06/18/18 04:30 Baso # (Auto) 0.1 10^3/uL (0.0-0.1) 06/18/18 04:30 Absolute Nucleated RBC 0.00 x10^3/uL 06/18/18 04:30 Nucleated RBC % 0.0 /100WBC 06/18/18 04:30 PT 16.3 secs (9.9-12.6) H 06/14/18 10:26 INR 1.5 (0.8-1.2) H 06/14/18 10:26 Sodium 137 mmol/L (135-145) 06/18/18 04:30 Potassium 4.3 mmol/L (3.5-5.0) 06/18/18 04:30 Chloride 104 mmol/L (101-111) 06/18/18 04:30 Carbon Dioxide 21 mmol/L (21-32) 06/18/18 04:30 Anion Gap 12.0 (6-13) 06/18/18 04:30 BUN 9 mg/dL (6-20) 06/18/18 04:30 Creatinine 0.8 mg/dL (0.6-1.2) 06/18/18 04:30 Estimated GFR (MDRD) 94 (>89) 06/18/18 04:30 Glucose 120 mg/dL (70-100) H 06/18/18 04:30 Lactic Acid 1.2 mmol/L (0.5-2.2) 06/16/18 08:15 Calcium 8.8 mg/dL (8.5-10.3) 06/18/18 04:30 Ionized Calcium NO 06/17/18 04:52 Phosphorus 3.8 mg/dL (2.5-4.6) 06/18/18 04:30 Magnesium 1.7 mg/dL (1.7-2.8) 06/18/18 04:30 Total Bilirubin 2.0 mg/dL (0.2-1.0) H 06/13/18 10:55 AST 38 IU/L (10-42) 06/13/18 10:55 ALT 33 IU/L (10-60) 06/13/18 10:55 Alkaline Phosphatase 65 IU/L (42-121) 06/13/18 10:55 Troponin I < 0.04 ng/mL (<0.49) 06/18/18 04:30 Total Protein 6.5 g/dL (6.7-8.2) L 06/13/18 10:55 Albumin 3.2 g/dL (3.2-5.5) 06/18/18 04:30 Globulin 2.9 g/dL (2.1-4.2) 06/13/18 10:55 Albumin/Globulin Ratio 1.2 (1.0-2.2) 06/13/18 10:55 Triglycerides 84 mg/dL (-149) 06/14/18 04:40 Cholesterol 150 mg/dL (-199) 06/14/18 04:40 LDL Cholesterol, Calc 92 mg/dL (-129) 06/14/18 04:40 VLDL Cholesterol 17 mg/dL 06/14/18 04:40 HDL Cholesterol 41 mg/dL (60-) L 06/14/18 04:40 LDL/HDL Ratio 2.2 (<3.6) 06/14/18 04:40 Cholesterol/HDL Ratio 3.7 (<5.0) 06/14/18 04:40 Lipase 28 U/L (22-51) 06/13/18 10:55 Vitamin B12 1124 pg/mL (180-914) H 06/13/18 10:00 TSH < 0.08 uIU/mL (0.34-5.60) L 06/13/18 10:00 Free T4 3.03 ng/dL (0.58-1.64) H 06/13/18 10:00 Free T3 pg/mL 4.81 pg/mL (2.5-3.9) H 06/13/18 10:00 Urine Color YELLOW 06/13/18 12:00 Urine Clarity CLEAR (CLEAR) 06/13/18 12:00 Urine pH 6.5 PH (5.0-7.5) 06/13/18 12:00 Ur Specific [place] 1.020 (1.002-1.030) 06/13/18 12:00 Urine Protein 30 mg/dL (NEGATIVE) H 06/13/18 12:00 Urine Glucose (UA) NEGATIVE mg/dL (NEGATIVE) 06/13/18 12:00 Urine Ketones 15 mg/dL (NEGATIVE) H 06/13/18 12:00 Urine Occult Blood SMALL (NEGATIVE) H 06/13/18 12:00 Urine Nitrite NEGATIVE (NEGATIVE) 06/13/18 12:00 Urine Bilirubin NEGATIVE (NEGATIVE) 06/13/18 12:00 Urine Urobilinogen 1 (NORMAL) E.U./dL (NORMAL) 06/13/18 12:00 Ur Leukocyte Esterase NEGATIVE (NEGATIVE) 06/13/18 12:00 Urine RBC 0-5 /HPF (0-5) 06/13/18 12:00 Urine WBC 0-3 /HPF (0-3) 06/13/18 12:00 Ur Squamous Epith Cells RARE Squamous (<= Few) 06/13/18 12:00 Urine Bacteria Rare /HPF (None Seen) 06/13/18 12:00 Ur Microscopic Review INDICATED 06/13/18 12:00 Urine Culture Comments NOT INDICATED 06/13/18 12:00 CSF Color COLORLESS (COLORLESS) 06/16/18 17:20 CSF Clarity CLEAR (CLEAR) 06/16/18 17:20 Xanthrochromic ABSENT (ABSENT) 06/16/18 17:20 CSF WBC 0 /mm^3 (0-5) 06/16/18 17:20 CSF RBC 0 /mm^3 (0-1) 06/16/18 17:20 CSF Cell Count Tube # CSF TUBE# 3 06/16/18 17:20 CSF Glucose 69 mg/dL (45-70) 06/16/18 17:20 CSF Total Protein 62 mg/dL (15-60) H 06/16/18 17:20 Last Dose Date UNK 06/17/18 04:52 Last Dose Time UNK 06/17/18 04:52 Digoxin 1.2 ng/mL 06/17/18 04:52 Urine Opiates Screen POSITIVE (NEGATIVE) H 06/13/18 14:38 Ur Oxycodone Screen NEGATIVE (NEGATIVE) 06/13/18 14:38 Urine Methadone Screen NEGATIVE (NEGATIVE) 06/13/18 14:38 Ur Propoxyphene Screen NEGATIVE (NEGATIVE) 06/13/18 14:38 Ur Barbiturates Screen NEGATIVE (NEGATIVE) 06/13/18 14:38 Ur Tricyclics Screen NEGATIVE (NEGATIVE) 06/13/18 14:38 Ur Phencyclidine Scrn NEGATIVE (NEGATIVE) 06/13/18 14:38 Ur Amphetamine Screen NEGATIVE (NEGATIVE) 06/13/18 14:38 U Methamphetamines Scrn NEGATIVE (NEGATIVE) 06/13/18 14:38 U Benzodiazepines Scrn NEGATIVE (NEGATIVE) 06/13/18 14:38 Urine Cocaine Screen NEGATIVE (NEGATIVE) 06/13/18 14:38 U Cannabinoids Screen POSITIVE (NEGATIVE) H 06/13/18 14:38 Thyroglobulin Antibody <1 IU/mL (< or = 1) 06/14/18 08:15 Thyroid Peroxidase Ab <1 IU/mL (<9) 06/14/18 08:15 Hepatitis A IgM Ab NON-REACTIVE (NON-REACTIVE) 06/13/18 14:06 Hep Bs Antigen NON-REACTIVE (NON-REACTIVE) 06/13/18 14:06 Hep B Core IgM Ab NON-REACTIVE (NON-REACTIVE) 06/13/18 14:06 Hepatitis C Antibody NON-REACTIVE (NON-REACTIVE) 06/13/18 14:06 Hep C Ab Signal/Cutoff 0.00 (<1.00) 06/13/18 14:06 HSV I IgG Ab <0.90 index 06/13/18 14:06 HSV II IgG 6.84 index H 06/13/18 14:06 HIV 1&2 Ag/Ab, 4th Gen NON-REACTIVE (NON-REACTIVE) 06/13/18 14:06 Influenza A (Rapid) Negative (Negative) 06/14/18 12:14 Influenza B (Rapid) Negative (Negative) 06/14/18 12:14
[2018-06-18] MEDS: RIVAROXABAN 10 MG TABLET PO SCH (16:52)
[2018-06-18] MEDS: MULTIVITAMIN W/MINERALS TABLET PO SCH (16:57)
[2018-06-18] MEDS ORDERED: METOPROLOL SUCCINATE 25 MG TABLET PO SCH (21:00)
[2018-06-18] MEDS: buPROPion SR 150 MG TABLET PO SCH (21:14)
[2018-06-18] MEDS: METOPROLOL SUCCINATE 50 MG TABLET PO SCH (21:15)
[2018-06-18] MEDS: LISINOPRIL 20 MG TABLET PO SCH (21:15)
[2018-06-19] MEDS: SODIUM CHLORIDE FLUSH 0.9% 10 ML SYRINGE IVP SCH ×3 (05:02→17:57)
[2018-06-19 05:17] LABS: BASOPHILS # (AUTO) 0.1 10^3/uL (0.0-0.1); BASOPHILS % (AUTO) 0.9 %; EOSINOPHILS # (AUTO) 0.3 10^3/uL (0.0-0.7); EOSINOPHILS % (AUTO) 2.3 %; HGB - HEMOGLOBIN 15.4 g/dL (14.0-18.0); LYMPHOCYTES # (AUTO) 1.4 10^3/uL (1.5-3.5); LYMPHOCYTES % (AUTO) 13.4 %; MEAN CORPUSCULAR HEMOGLOBIN 33.6 pg (27.0-31.0); MEAN CORPUSCULAR HGB CONC 33.1 g/dL (32.0-36.0); MEAN CORPUSCULAR VOLUME 101.4 fL (80.0-94.0); MEAN PLATELET VOLUME 8.6 fL (7.4-11.4); MONOCYTES # (AUTO) 1.3 10^3/uL (0.0-1.0); MONOCYTES % (AUTO) 12.3 %; NEUTROPHILS # (AUTO) 7.7 10^3/uL (1.5-6.6); NEUTROPHILS % (AUTO) 71.1 %; PLT - PLATELET COUNT 205 10^3/uL (130-450); RED CELL DISTRIBUTION WIDTH 14.3 % (12.0-15.0); WHITE BLOOD COUNT 10.8 x10^3/uL (4.8-10.8)
[2018-06-19 05:24] LABS: ALBUMIN 3.2 g/dL (3.2-5.5); CALCIUM 8.9 mg/dL (8.5-10.3); CREATININE 0.9 mg/dL (0.6-1.2); PHOSPHORUS 4.3 mg/dL (2.5-4.6)
[2018-06-19] MEDS: ACYCLOVIR INJ 1,000 MG in SODIUM CHLORIDE 0.9% 250 ML IV SCH ×2 (06:53→13:55)
[2018-06-19] MEDS: HYDROXYCHLOROQUINE 200 MG TABLET PO SCH (08:12)
[2018-06-19] MEDS: MULTIVITAMIN W/MINERALS TABLET PO SCH (08:13)
[2018-06-19] MEDS: METOPROLOL SUCCINATE 50 MG TABLET PO SCH ×2 (08:13→20:52)
[2018-06-19] MEDS: methIMAzole 5 MG TABLET PO SCH (08:13)
[2018-06-19] MEDS: buPROPion SR 150 MG TABLET PO SCH ×2 (08:13→20:51)
[2018-06-19] MEDS: FOLIC ACID 1 MG TABLET PO SCH (08:13)
[2018-06-19] MEDS: LISINOPRIL 20 MG TABLET PO SCH ×2 (08:14→20:52)
[2018-06-19] MEDS: POTASSIUM CHLORIDE 10 MEQ CAPSULE PO SCH (08:14)
[2018-06-19] MEDS: hydrALAZINE 25 MG TABLET PO SCH ×4 (08:14→20:52)
[2018-06-19] MEDS: ISOSORBIDE MONONITRATE ER 30 MG TABLET PO SCH (08:14)
[2018-06-19] MEDS ORDERED: WHEAT DEXTRIN POWDER PACKET PO PRN (08:46)
[2018-06-19] MEDS: POLYETHYLENE GLYCOL 3350 17 GM PACKET PO SCH (08:53)
[2018-06-19] MEDS ORDERED: HYDROXYCHLOROQUINE 200 MG TABLET PO SCH (09:00)
[2018-06-19] MEDS: FLUTICASONE NASAL SPRAY NAS SCH (09:01)
--- NOTE | 2018-06-19 09:32 | XRAY Report ---
Reason: left side mass. ?extra rib Procedure Date: 06/19/2018 Accession Number: [id number] / [id number] Procedure: XR - Chest 1 View X-Ray CPT Code: 58169 FULL RESULT: EXAM: CHEST RADIOGRAPHY EXAM DATE: 06/19/2018 08:45 AM. CLINICAL HISTORY: Left side mass. Question extra rib. COMPARISON: CHEST FOR LINE PLACEMENT 06/17/2018 9:52 PM. TECHNIQUE: 1 view. FINDINGS: Lungs/Pleura: The visualized portion of the lungs demonstrates no new airspace opacity. No sizable pleural effusion or pneumothorax. Mediastinum: Cardiomediastinal silhouette is suggestive of borderline cardiomegaly and tortuous aorta, unchanged when accounting for differences in technique. Other: A right internal jugular vein central venous catheter is again seen terminating in the SVC. Note is made of multiple left-sided rib fractures, based on the limited visualization at least the fifth through ninth posterior left ribs with lateral displacement of the ninth rib. Given the trajectory of the 10th and 11th ribs, these are likely also fractured and displaced. The actual fracture is not visualized due to the overlying cardiac silhouette and photopenia. IMPRESSION: Left-sided rib fractures may account for the perceived mass. RADIA
[2018-06-19] MEDS: NS W/40 MEQ KCL 1,000 ML IV SCH (10:30)
[2018-06-19] MEDS: NYSTATIN POWDER 15 GM TOP SCH (10:47)
--- NOTE | 2018-06-19 11:04 | PROVIDER PROGRESS NOTE ---
Assessment/Plan - Problem List (1) Hypertensive encephalopathy syndrome Assessment/Plan: He had very slow daily improvement. PT started with him yesterday and he is able to stand. He will need a SNF for PT and OT rehab. Continue BP control, achieved yesterday, and off all iv meds and drips. Will discontinue prn sleeping med and have decreased prn narcotic frequency. Will increase OOB to chair as tolerated. He still needs to be fed, but po intake is very good. Will stop the iv hydration at 40 cc/hr today. In the afternoon, he became more obtunded, not able to swallow liquids or eat his lunch. I called the [place] Neurologist at [facility] and reviewed the entire case. The Neurologist recommended an ammonia level, and to repeat the brain MRI w and w/o contrast. (2) Ribs, multiple fractures Qualifiers: Laterality: left Assessment/Plan: There was nothing in the chart about trauma or syncope and a fall. The was able to tell me today that the patient broke 1 rib doing yoga and another when coughing, and has a "floating rib". Will increase OOB to chair and order IS. (3) Atrial fibrillation with RVR Assessment/Plan: HR is improved today on the higher dose of B-iban. Continue this maximum dose of Metoprolol Succ 100 mg bid. Continue telemetry. Continue Xarelto. (4) Hyperthyroidism determined by thyroid function test Assessment/Plan: B-iban dose escalation yesterday has helped achieve a restinng HR of 80. A thyroid nodule was seen on US of neck. Tapazole was started on 06/16/18. Further outpatient management of hyperthyroidism is the plan. (5) History of lacunar cerebrovascular accident (CVA) Assessment/Plan: As per brain imaging done this admission. This may account for the Hx of mild dementia in the chart. [place] ASA, statin. (6) Aortic stenosis, mild Assessment/Plan: As per Echo done this admission. (7) Pulmonary HTN Assessment/Plan: As per Echo done this admission. (8) HSV-2 seropositive Assessment/Plan: Pt on Acyclovir Day #5. Will finish after a 5 day course, per UpToDate. (9) Hx of psoriatic arthritis Assessment/Plan: He was on Plaquenil, MTX and Prednisone, prior to this admission and these have been restarted while here. (10) Chronic back pain Assessment/Plan: Continue pain meds. - Current Meds Current Meds: Current Medications Generic Name Dose Route Start Last Admin Trade Name Jarrett PRN Reason Stop Dose Admin Acetaminophen 650 mg 06/13/18 13:55 06/17/18 01:19 Tylenol PO 650 mg Q4HR PRN Administration Pain 1 to 4 Bupropion HCl 150 mg 06/18/18 21:00 06/19/18 08:13 Wellbutrin Sr PO 150 mg BID TERRY Administration Fluticasone Propionate 2 sprays 06/14/18 09:00 06/19/18 09:01 Flonase JAMIN 1 spray DAILY TERRY Administration Folic Acid 1 mg 06/14/18 09:00 06/19/18 08:13 PO 1 mg DAILY TERRY Administration Hydralazine HCl 50 mg 06/18/18 09:00 06/19/18 08:14 Apresoline PO 50 mg QID TERRY Administration Hydroxychloroquine Sulfate 400 mg 06/19/18 08:00 06/19/18 08:12 Plaquenil PO 400 mg DAILYWM TERRY Administration Acyclovir 1,000 mg/ Sodium 270 mls @ 250 mls/hr 06/14/18 14:00 06/19/18 08:00 Chloride IV Infused TID TERRY Infusion Potassium Chloride/Sodium Chloride 1,000 mls @ 40 mls/hr 06/18/18 08:57 06/19/18 10:30 Normal Saline 0.9% W/40 Meq Kcl IV 40 mls/hr .Q25H TERRY Administration Isosorbide Mononitrate 60 mg 06/18/18 12:00 06/19/18 08:14 Imdur PO 60 mg DAILY TERRY Administration Lidocaine HCl 2.5 ml 06/15/18 18:06 06/15/18 18:48 Xylocaine Uro-Jet 2% UR 2.5 ml Q6HR PRN Administration PAIN Lisinopril 40 mg 06/18/18 21:00 06/19/18 08:14 Zestril PO 40 mg BID TERRY Administration Methimazole 10 mg 06/16/18 08:15 06/19/18 08:13 Tapazole PO 10 mg DAILYWM TERRY Administration Metoprolol Succinate 100 mg 06/18/18 21:00 06/19/18 08:13 Toprol Xl PO 100 mg BID TERRY Administration Multivitamins/Minerals 1 tab 06/18/18 17:00 06/19/18 08:13 Theragran M PO 1 tab DAILYWM TERRY Administration Nystatin 1 applic 06/14/18 09:00 06/19/18 10:47 Nystop TOP 1 applic BID TERRY Administration Olanzapine 2.5 mg 06/17/18 07:56 06/17/18 22:17 Zyprexa Odt TL 2.5 mg TID PRN Administration psychosis Ondansetron HCl 4 mg 06/13/18 13:55 06/18/18 17:22 Zofran Odt TL 4 mg Q6HR PRN Administration Nausea / Vomiting Polyethylene Glycol 17 gm 06/14/18 09:00 06/19/18 08:53 Miralax PO 17 gm DAILY TERRY Administration Potassium Chloride 10 meq 06/14/18 09:00 06/19/18 08:14 Micro-K PO 10 meq DAILY TERRY Administration Rivaroxaban 20 mg 06/16/18 18:00 06/18/18 16:52 Xarelto PO 20 mg 1700 TERRY Administration Sodium Chloride 10 ml 06/13/18 17:00 06/19/18 08:59 Normal Saline Flush 0.9% IVP 10 ml 0100,0900,1700 TERRY Administration - Lab Result Fish Bone Diagrams: 06/19/18 05:00 06/19/18 05:00 - Additional Planning My Orders: My Active Orders 06/18/18 12:00 Isosorbide Mononitrate ER [Imdur] 60 mg PO DAILY 06/18/18 16:11 HYDROcod/ACETAM 5/325 [[place] 5/325] 1 tab PO Q8HR PRN 06/18/18 16:58 Heparin Flush 30 - 50 unit IVP PRN PRN 06/18/18 17:00 Multivitamin W/Minerals [Theragran M] 1 tab PO DAILYWM 06/18/18 21:00 Lisinopril [Zestril] 40 mg PO BID Metoprolol Succinate [Toprol Xl] 100 mg PO BID buPROPion [Wellbutrin Sr] 150 mg PO BID 06/18/18 Dinner DIET [Low Sodium Diet] [DIET] 06/19/18 MRSA PCR,CCU ADMIT Stat 06/19/18 08:00 Hydroxychloroquine [Plaquenil] 400 mg PO DAILYWM 06/19/18 08:46 Wheat Dextrin [Benefiber] 1 packet PO DAILY PRN Subjective - Subjective Nursing Reports: Other (Weaker and less able to follow commands after breakfast) Objective Vital Signs: Vital Signs - 24 hr 06/18/18 06/18/18 06/18/18 11:25 11:30 12:00 Temperature 37.2 C Heart Rate [ 92 80 96 Monitoring electrodes] Respiratory 28 H Rate Blood Pressure 141/77 H 160/90 H 168/95 H [Left Radial artery] O2 Saturation 95 06/18/18 06/18/18 06/18/18 13:00 13:38 14:00 Temperature Heart Rate [ 87 79 72 Monitoring electrodes] Respiratory 34 H 24 Rate Blood Pressure 164/92 H 125/64 127/63 [Left Radial artery] O2 Saturation 95 94 06/18/18 06/18/18 06/18/18 14:15 14:30 14:45 Temperature Heart Rate [ 83 87 81 Monitoring electrodes] Respiratory 21 27 H 28 H Rate Blood Pressure 127/55 L 134/66 H 137/84 H [Left Radial artery] O2 Saturation 94 94 94 06/18/18 06/18/18 06/18/18 15:00 15:15 15:30 Temperature Heart Rate [ 87 93 87 Monitoring electrodes] Respiratory 29 H 26 H 32 H Rate Blood Pressure 142/73 H 143/75 H 155/92 H [Left Radial artery] O2 Saturation 94 94 93 06/18/18 06/18/18 06/18/18 15:52 16:00 17:00 Temperature 37.4 C Heart Rate [ 85 97 89 Monitoring electrodes] Respiratory 31 H 27 H 27 H Rate Blood Pressure 141/67 H 149/66 H 175/93 H [Left Radial artery] O2 Saturation 94 94 93 06/18/18 06/18/18 06/18/18 18:00 19:00 20:00 Temperature 37.3 C Heart Rate [ 88 89 84 Monitoring electrodes] Respiratory 33 H 19 24 Rate Blood Pressure 130/67 163/93 H 137/88 H [Left Radial artery] O2 Saturation 94 94 96 06/18/18 06/18/18 06/18/18 21:00 22:00 23:00 Temperature Heart Rate [ 88 86 90 Monitoring electrodes] Respiratory 20 24 32 H Rate Blood Pressure 150/95 H 166/83 H 161/79 H [Left Radial artery] O2 Saturation 97 96 94 06/19/18 06/19/18 06/19/18 00:00 01:00 02:00 Temperature 37.1 C Heart Rate [ 89 82 81 Monitoring electrodes] Respiratory 33 H 22 28 H Rate Blood Pressure 134/63 H 122/85 H 136/68 H [Left Radial artery] O2 Saturation 95 96 95 06/19/18 06/19/18 06/19/18 03:00 04:00 05:00 Temperature 37.1 C Heart Rate [ 78 78 83 Monitoring electrodes] Respiratory 25 H 31 H 34 H Rate Blood Pressure 148/76 H 146/79 H 135/81 H [Left Radial artery] O2 Saturation 95 95 95 06/19/18 06/19/18 06/19/18 06:00 06:55 08:00 Temperature 36.8 C Heart Rate [ 78 74 86 Monitoring electrodes] Respiratory 22 31 H 33 H Rate Blood Pressure 130/73 136/92 H 164/77 H [Left Radial artery] O2 Saturation 96 93 94 06/19/18 06/19/18 09:00 10:00 Temperature Heart Rate [ 77 67 Monitoring electrodes] Respiratory 21 33 H Rate Blood Pressure 175/82 H 138/87 H [Left Radial artery] O2 Saturation 94 94 Oxygen O2 Source Room air I&O (Last 24 Hrs): Intake and Output Totals x24h 06/17/18 06/18/18 06/19/18 23:59 23:59 23:59 Intake Total 6957.850 5875.875 1941.333 Output Total 4630 4095 1885 Balance 2327.850 1780.875 56.333 General: Other (Obtunded, opens eyes and smiles when hears voice) HEENT: Mucous membr. moist/pink, Other (Cheeks flushed) Neuro: Non Focal, Speech Slurred, Other (2/5 strength) Cardiovascular: Regular rate, No murmurs Respiratory: No respiratory distress, Breath sounds nml Abdomen: Soft, Other (Obese with pannus) Genitourinary: Other (Whit[place] in place) Extremities: No edema - Results Results: Laboratory Results WBC 10.8 x10^3/uL (4.8-10.8) 06/19/18 05:00 RBC 4.60 10^6/uL (4.70-6.10) L 06/19/18 05:00 Hgb 15.4 g/dL (14.0-18.0) 06/19/18 05:00 Hct 46.6 % (42.0-52.0) 06/19/18 05:00 MCV 101.4 fL (80.0-94.0) H 06/19/18 05:00 MCH 33.6 pg (27.0-31.0) H 06/19/18 05:00 MCHC 33.1 g/dL (32.0-36.0) 06/19/18 05:00 RDW 14.3 % (12.0-15.0) 06/19/18 05:00 Plt Count 205 10^3/uL (130-450) 06/19/18 05:00 MPV 8.6 fL (7.4-11.4) 06/19/18 05:00 Neut # (Auto) 7.7 10^3/uL (1.5-6.6) H 06/19/18 05:00 Lymph # (Auto) 1.4 10^3/uL (1.5-3.5) L 06/19/18 05:00 Faulk # (Auto) 1.3 10^3/uL (0.0-1.0) H 06/19/18 05:00 Eos # (Auto) 0.3 10^3/uL (0.0-0.7) 06/19/18 05:00 Baso # (Auto) 0.1 10^3/uL (0.0-0.1) 06/19/18 05:00 Absolute Nucleated RBC 0.00 x10^3/uL 06/19/18 05:00 Nucleated RBC % 0.0 /100WBC 06/19/18 05:00 PT 16.3 secs (9.9-12.6) H 06/14/18 10:26 INR 1.5 (0.8-1.2) H 06/14/18 10:26 Sodium 136 mmol/L (135-145) 06/19/18 05:00 Potassium 4.3 mmol/L (3.5-5.0) 06/19/18 05:00 Chloride 102 mmol/L (101-111) 06/19/18 05:00 Carbon Dioxide 23 mmol/L (21-32) 06/19/18 05:00 Anion Gap 11.0 (6-13) 06/19/18 05:00 BUN 11 mg/dL (6-20) 06/19/18 05:00 Creatinine 0.9 mg/dL (0.6-1.2) 06/19/18 05:00 Estimated GFR (MDRD) 82 (>89) L 06/19/18 05:00 Glucose 103 mg/dL (70-100) H 06/19/18 05:00 Lactic Acid 1.2 mmol/L (0.5-2.2) 06/16/18 08:15 Calcium 8.9 mg/dL (8.5-10.3) 06/19/18 05:00 Ionized Calcium NO 06/17/18 04:52 Phosphorus 4.3 mg/dL (2.5-4.6) 06/19/18 05:00 Magnesium 1.7 mg/dL (1.7-2.8) 06/18/18 04:30 Total Bilirubin 2.0 mg/dL (0.2-1.0) H 06/13/18 10:55 AST 38 IU/L (10-42) 06/13/18 10:55 ALT 33 IU/L (10-60) 06/13/18 10:55 Alkaline Phosphatase 65 IU/L (42-121) 06/13/18 10:55 Troponin I < 0.04 ng/mL (<0.49) 06/18/18 04:30 Total Protein 6.5 g/dL (6.7-8.2) L 06/13/18 10:55 Albumin 3.2 g/dL (3.2-5.5) 06/19/18 05:00 Globulin 2.9 g/dL (2.1-4.2) 06/13/18 10:55 Albumin/Globulin Ratio 1.2 (1.0-2.2) 06/13/18 10:55 Triglycerides 84 mg/dL (-149) 06/14/18 04:40 Cholesterol 150 mg/dL (-199) 06/14/18 04:40 LDL Cholesterol, Calc 92 mg/dL (-129) 06/14/18 04:40 VLDL Cholesterol 17 mg/dL 06/14/18 04:40 HDL Cholesterol 41 mg/dL (60-) L 06/14/18 04:40 LDL/HDL Ratio 2.2 (<3.6) 06/14/18 04:40 Cholesterol/HDL Ratio 3.7 (<5.0) 06/14/18 04:40 Lipase 28 U/L (22-51) 06/13/18 10:55 Vitamin B12 1124 pg/mL (180-914) H 06/13/18 10:00 TSH < 0.08 uIU/mL (0.34-5.60) L 06/13/18 10:00 Free T4 3.03 ng/dL (0.58-1.64) H 06/13/18 10:00 Free T3 pg/mL 4.81 pg/mL (2.5-3.9) H 06/13/18 10:00 Urine Color YELLOW 06/13/18 12:00 Urine Clarity CLEAR (CLEAR) 06/13/18 12:00 Urine pH 6.5 PH (5.0-7.5) 06/13/18 12:00 Ur Specific [place] 1.020 (1.002-1.030) 06/13/18 12:00 Urine Protein 30 mg/dL (NEGATIVE) H 06/13/18 12:00 Urine Glucose (UA) NEGATIVE mg/dL (NEGATIVE) 06/13/18 12:00 Urine Ketones 15 mg/dL (NEGATIVE) H 06/13/18 12:00 Urine Occult Blood SMALL (NEGATIVE) H 06/13/18 12:00 Urine Nitrite NEGATIVE (NEGATIVE) 06/13/18 12:00 Urine Bilirubin NEGATIVE (NEGATIVE) 06/13/18 12:00 Urine Urobilinogen 1 (NORMAL) E.U./dL (NORMAL) 06/13/18 12:00 Ur Leukocyte Esterase NEGATIVE (NEGATIVE) 06/13/18 12:00 Urine RBC 0-5 /HPF (0-5) 06/13/18 12:00 Urine WBC 0-3 /HPF (0-3) 06/13/18 12:00 Ur Squamous Epith Cells RARE Squamous (<= Few) 06/13/18 12:00 Urine Bacteria Rare /HPF (None Seen) 06/13/18 12:00 Ur Microscopic Review INDICATED 06/13/18 12:00 Urine Culture Comments NOT INDICATED 06/13/18 12:00 CSF Color COLORLESS (COLORLESS) 06/16/18 17:20 CSF Clarity CLEAR (CLEAR) 06/16/18 17:20 Xanthrochromic ABSENT (ABSENT) 06/16/18 17:20 CSF WBC 0 /mm^3 (0-5) 06/16/18 17:20 CSF RBC 0 /mm^3 (0-1) 06/16/18 17:20 CSF Cell Count Tube # CSF TUBE# 3 06/16/18 17:20 CSF Glucose 69 mg/dL (45-70) 06/16/18 17:20 CSF Total Protein 62 mg/dL (15-60) H 06/16/18 17:20 Last Dose Date UNK 06/17/18 04:52 Last Dose Time UNK 06/17/18 04:52 Digoxin 1.2 ng/mL 06/17/18 04:52 Urine Opiates Screen POSITIVE (NEGATIVE) H 06/13/18 14:38 Ur Oxycodone Screen NEGATIVE (NEGATIVE) 06/13/18 14:38 Urine Methadone Screen NEGATIVE (NEGATIVE) 06/13/18 14:38 Ur Propoxyphene Screen NEGATIVE (NEGATIVE) 06/13/18 14:38 Ur Barbiturates Screen NEGATIVE (NEGATIVE) 06/13/18 14:38 Ur Tricyclics Screen NEGATIVE (NEGATIVE) 06/13/18 14:38 Ur Phencyclidine Scrn NEGATIVE (NEGATIVE) 06/13/18 14:38 Ur Amphetamine Screen NEGATIVE (NEGATIVE) 06/13/18 14:38 U Methamphetamines Scrn NEGATIVE (NEGATIVE) 06/13/18 14:38 U Benzodiazepines Scrn NEGATIVE (NEGATIVE) 06/13/18 14:38 Urine Cocaine Screen NEGATIVE (NEGATIVE) 06/13/18 14:38 U Cannabinoids Screen POSITIVE (NEGATIVE) H 06/13/18 14:38 Thyroglobulin Antibody <1 IU/mL (< or = 1) 06/14/18 08:15 Thyroid Peroxidase Ab <1 IU/mL (<9) 06/14/18 08:15 Hepatitis A IgM Ab NON-REACTIVE (NON-REACTIVE) 06/13/18 14:06 Hep Bs Antigen NON-REACTIVE (NON-REACTIVE) 06/13/18 14:06 Hep B Core IgM Ab NON-REACTIVE (NON-REACTIVE) 06/13/18 14:06 Hepatitis C Antibody NON-REACTIVE (NON-REACTIVE) 06/13/18 14:06 Hep C Ab Signal/Cutoff 0.00 (<1.00) 06/13/18 14:06 HSV I IgG Ab <0.90 index 06/13/18 14:06 HSV II IgG 6.84 index H 06/13/18 14:06 HIV 1&2 Ag/Ab, 4th Gen NON-REACTIVE (NON-REACTIVE) 06/13/18 14:06 Influenza A (Rapid) Negative (Negative) 06/14/18 12:14 Influenza B (Rapid) Negative (Negative) 06/14/18 12:14
[2018-06-19] MEDS: HYDROcod/ACETAM 5/325 MG TABLET PO PRN (14:20)
[2018-06-19 15:24] LABS: BILIRUBIN,URINE NEGATIVE (NEGATIVE); GLUCOSE, URINE (UA) NEGATIVE (NEGATIVE); KETONES,URINE (UA) NEGATIVE (NEGATIVE); LEUKOCYTE ESTERASE, URINE TRACE (NEGATIVE); NITRITE,URINE NEGATIVE (NEGATIVE); OCCULT BLOOD,URINE LARGE (NEGATIVE); PROTEIN,URINE NEGATIVE (NEGATIVE); UROBILINOGEN,URINE 4 E.U./dL (NORMAL)
[2018-06-19 15:25] LABS: CLARITY,URINE CLEAR (CLEAR)
[2018-06-19] MEDS ORDERED: GADOBUTROL 10 MMOL/10 ML VIAL ONE (15:32)
[2018-06-19 15:36] LABS: BACTERIA,URINE Few /HPF (None Seen); SQUAMOUS EPITHELIAL CELL,UR NONE SEEN (<= Few)
[2018-06-19] MEDS ORDERED: GADOBUTROL 10 MMOL/10 ML VIAL IVP ONE (15:51)
--- NOTE | 2018-06-19 16:22 | MRI Report ---
Reason: worsening obtundation Procedure Date: 06/19/2018 Accession Number: [id number] / [id number] Procedure: MRI - Brain W/WO CPT Code: FULL RESULT: EXAM: MRI BRAIN WITHOUT AND WITH CONTRAST. EXAM DATE: 06/19/2018 03:56 PM. CLINICAL HISTORY: 78-year-old presenting with worsening obtundation. Evaluate for intracranial pathology. COMPARISON: CTA head and neck 06/15/2018; MR brain 06/13/2018. TECHNIQUE: Multiplanar, multisequence T1-weighted and fluid-sensitive MR sequences of the brain were performed. Sequences optimized for routine evaluation. Other: None. IV Contrast: 10 cc Gadavist. FINDINGS: Brain Volume: Normal for age. Parenchyma: No acute parenchymal hemorrhage, mass, or midline shift. Old chronic lacunar infarcts are seen involving the right cerebellum, right frontal nava radiata, left parietal nava radiata, and left centrum semiovale that appear similar to MR brain 06/13/2018. There is moderate bilateral areas of T2/FLAIR signal hyperdensity seen that appear similar to prior study. No areas of restricted diffusion seen to suggest acute infarct. There are susceptible artifact seen within the left paramedian ryne-loraine (series 701, image 7) similar to prior study. No abnormal enhancement. Ventricles/Cisterns: No hydrocephalus. No abnormal extra-axial fluid collection or hemorrhage. Orbits: Changes of right lens replacement. Sella Turcica: The pituitary gland, cavernous sinuses, suprasellar cistern and optic chiasm are unremarkable. IAC: Symmetric and unremarkable. Vasculature: Normal signal flow void is seen in the major arterial structures at the skull base. The dural sinuses are patent and enhance normally. Sinuses: No acute sinus disease. Bones: No focal pathologic appearing marrow signal changes. Other: None. IMPRESSION: 1. No definite acute intracranial pathology seen; specifically, no acute infarct, acute intracranial hemorrhage, mass, hydrocephalus, or midline shift. No abnormal post contrast enhancement. 2. Old chronic lacunar infarcts involving the right cerebellum, right parietal nava radiata, left parietal nava radiata and left centrum semiovale similar to MR brain 06/13/2018. 3. Moderate bilateral areas of white matter hypoattenuation seen that appears similar to prior study and while nonspecific, may represent sequela of chronic small vessel ischemic disease. RADIA
[2018-06-19] MEDS: RIVAROXABAN 10 MG TABLET PO SCH (17:24)
[2018-06-19] MEDS ORDERED: ZINC OXIDE 20% OINT 28.35 GM TUBE TOP PRN (18:17)
[2018-06-19] MEDS: THIAMINE INJ 500 MG in SODIUM CHLORIDE 0.9% 50 ML IV SCH (19:05)
[2018-06-19] MEDS: SODIUM CHLORIDE FLUSH 0.9% 10 ML SYRINGE IVP PRN (19:08)
[2018-06-20] MEDS: THIAMINE INJ 500 MG in SODIUM CHLORIDE 0.9% 50 ML IV SCH ×4 (00:17→21:59)
[2018-06-20] MEDS: NYSTATIN POWDER 15 GM TOP SCH ×3 (02:52→20:37)
[2018-06-20] MEDS: SODIUM CHLORIDE FLUSH 0.9% 10 ML SYRINGE IVP SCH ×4 (02:53→21:59)
[2018-06-20] MEDS: HYDROcod/ACETAM 5/325 MG TABLET PO PRN ×2 (06:06→13:29)
[2018-06-20] MEDS ORDERED: METHOTREXATE 2.5 MG TABLET PO SCH (08:00)
[2018-06-20] MEDS: methIMAzole 5 MG TABLET PO SCH (08:24)
[2018-06-20] MEDS: HYDROXYCHLOROQUINE 200 MG TABLET PO SCH (08:24)
[2018-06-20] MEDS: MULTIVITAMIN W/MINERALS TABLET PO SCH (08:24)
[2018-06-20] MEDS: FOLIC ACID 1 MG TABLET PO SCH (08:25)
[2018-06-20] MEDS: LISINOPRIL 20 MG TABLET PO SCH ×2 (08:25→20:36)
[2018-06-20] MEDS: ISOSORBIDE MONONITRATE ER 30 MG TABLET PO SCH (08:25)
[2018-06-20] MEDS: METOPROLOL SUCCINATE 50 MG TABLET PO SCH ×2 (08:25→20:36)
[2018-06-20] MEDS: hydrALAZINE 25 MG TABLET PO SCH ×4 (08:25→20:36)
[2018-06-20] MEDS: buPROPion SR 150 MG TABLET PO SCH ×2 (08:25→20:36)
[2018-06-20] MEDS: POTASSIUM CHLORIDE 10 MEQ CAPSULE PO SCH (08:26)
[2018-06-20] MEDS: POLYETHYLENE GLYCOL 3350 17 GM PACKET PO SCH (08:39)
[2018-06-20] MEDS: FLUTICASONE NASAL SPRAY NAS SCH (08:44)
[2018-06-20] MEDS: LIDOCAINE PATCH 5% TOP PRN (09:55)
--- NOTE | 2018-06-20 12:55 | PROVIDER PROGRESS NOTE ---
Assessment/Plan - Problem List (1) Encephalopathy Assessment/Plan: This morning the patient remembered his RN's name, was able to say 5-6 words in a sentence. Speech is less slow. He was able to swallow, needed to be fed, could drink from a straw. His RPR is neg, as well as all the previous W/U to evaluate for obtundation. A serum Thiamine level was sent off yesterday, as advised by Dr Perera of neurology at [facility], who I spoke to twice yesterday and once today. Thiamine high dose 500 mg iv tid was started yesterday evening. 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 As he participates in PT more, will assess if he has an ataxic gait. I reviewed notes, from the ER and H&P through yesterday's progress notes, and can not find any documentation of this patient's Social History, specifically re garding his alcohol intake history, anywhere in the notes, until yesterday. After speaking with the neurologist today, updating her on his condition, the neurologist felt there is no need for an urgent EEG, no need for transfer to higher level of care, but that he needs Neurology F/U after this admission. Possibly will be transferred out of ICU later today. He will need a SNF after DCh, and he and spouse agree. (2) Alcohol abuse Assessment/Plan: Thiamine ordered as above, abstinence discussed. Will also add a multivitamin if not on one. (3) HTN (hypertension) Assessment/Plan: Contolled on current meds (4) Chronic a-fib Assessment/Plan: Pt on Xarelto. HR controlled on current meds (5) Ribs, multiple fractures Qualifiers: Laterality: left Assessment/Plan: "Floating" rib present. IS to start today, simnce patient can follow commands today (6) Hyperthyroidism determined by thyroid function test Assessment/Plan: Pt on B-iban, HR controlled and on Tapazole. (7) History of lacunar cerebrovascular accident (CVA) Assessment/Plan: Mental ststus improving. PT to walk with him today (8) Hx of psoriatic arthritis Assessment/Plan: Pt on Prednisone, Plaquenil and MTX. He still has LBP and hip pain bilat. Will add Capsacin cream qid prn, His home doses of Vicodin (that were not on the home Reconciled list up to today) and also try a Lidocaine patch prn. 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 Assessment/Plan: Pt had a 5 Day course of acyclovir, stopped yesterday - Current Meds Current Meds: Current Medications Generic Name Dose Route Start Last Admin Trade Name Freq PRN Reason Stop Dose Admin Acetaminophen 650 mg 06/13/18 13:55 06/17/18 01:19 Tylenol PO 650 mg Q4HR PRN Administration Pain 1 to 4 Hydrocodone Bitart/Acetaminophen 1 tab 06/18/18 16:11 06/20/18 06:06 [place] 5/325 PO 1 tab Q8HR PRN Administration PAIN Bupropion HCl 150 mg 06/18/18 21:00 06/20/18 08:25 Wellbutrin Sr PO 150 mg BID TERRY Administration Fluticasone Propionate 2 sprays 06/14/18 09:00 06/20/18 08:44 Flonase JAMIN 1 spray DAILY TERRY Administration Folic Acid 1 mg 06/14/18 09:00 06/20/18 08:25 PO 1 mg DAILY TERRY Administration Heparin Sodium (Beef Lung) 30 - 50 unit 06/18/18 16:58 06/19/18 18:26 IVP 150 unit PRN PRN Administration Central Line Protocol (<24 hr) Hydralazine HCl 50 mg 06/18/18 09:00 06/20/18 08:25 Apresoline PO 50 mg QID TERRY Administration Hydroxychloroquine Sulfate 400 mg 06/19/18 08:00 06/20/18 08:24 Plaquenil PO 400 mg DAILYWM TERRY Administration Thiamine HCl 500 mg/ Sodium 55 mls @ 100 mls/hr 06/19/18 19:00 06/20/18 06:40 Chloride IV Infused TID TERRY Infusion Isosorbide Mononitrate 60 mg 06/18/18 12:00 06/20/18 08:25 Imdur PO 60 mg DAILY TERRY Administration Lidocaine 1 patch 06/20/18 09:12 06/20/18 09:55 Lidoderm Patch TOP 1 patch DAILY PRN Administration PAIN Lidocaine HCl 2.5 ml 06/15/18 18:06 06/15/18 18:48 Xylocaine Uro-Jet 2% UR 2.5 ml Q6HR PRN Administration PAIN Lisinopril 40 mg 06/18/18 21:00 06/20/18 08:25 Zestril PO 40 mg BID TERRY Administration Methimazole 10 mg 06/16/18 08:15 06/20/18 08:24 Tapazole PO 10 mg DAILYWM TERRY Administration Metoprolol Succinate 100 mg 06/18/18 21:00 06/20/18 08:25 Toprol Xl PO 100 mg BID TERRY Administration Multi-Ingredient Ointment 1 applic 06/19/18 18:17 06/20/18 10:21 Zinc Oxide TOP 1 applic PRN PRN Administration Skin Care Multivitamins/Minerals 1 tab 06/18/18 17:00 06/20/18 08:24 Theragran M PO 1 tab DAILYWM TERRY Administration Nystatin 1 applic 06/14/18 09:00 06/20/18 10:26 Nystop TOP 1 applic BID TERRY Administration Olanzapine 2.5 mg 06/17/18 07:56 06/17/18 22:17 Zyprexa Odt TL 2.5 mg TID PRN Administration psychosis Ondansetron HCl 4 mg 06/13/18 13:55 06/18/18 17:22 Zofran Odt TL 4 mg Q6HR PRN Administration Nausea / Vomiting Polyethylene Glycol 17 gm 06/14/18 09:00 06/20/18 08:39 Miralax PO Not Given DAILY TERRY Potassium Chloride 10 meq 06/14/18 09:00 06/20/18 08:26 Micro-K PO 10 meq DAILY TERRY Administration Rivaroxaban 20 mg 06/16/18 18:00 06/19/18 17:24 Xarelto PO 20 mg 1700 TERRY Administration Sodium Chloride 10 ml 06/13/18 13:55 06/19/18 19:08 Normal Saline Flush 0.9% IVP 10 ml PRN PRN Administration NEEDED PER PROVIDER ORDERS Sodium Chloride 10 ml 06/13/18 17:00 06/20/18 09:32 Normal Saline Flush 0.9% IVP 10 ml 0100,0900,1700 [facility] Administration - Lab Result Fish Bone Diagrams: 06/19/18 05:00 06/19/18 05:00 - Additional Planning My Orders: My Active Orders 06/19/18 14:11 CUL, URINE [RM] Stat 06/19/18 15:10 Miscellaneous Laboratory Order [LAB] Urgent 06/19/18 18:17 Zinc Oxide 20% Oint [Zinc Oxide] 1 applic TOP PRN PRN 06/19/18 18:59 VITAMIN B1 (THIAMINE) PLASMA [REFLAB] Urgent VITAMIN B1 (THIAMINE), BLOOD [REFLAB] Urgent 06/19/18 19:00 Thiamine Inj [Vitamin B-1 Inj] 500 mg Sodium Chloride 0.9% [Normal Saline 0.9%] 50 ml IV TID 06/20/18 09:10 Miscellaenous Nursing Order [RC] DAILY 06/20/18 09:12 Lidocaine Patch 5% [Lidoderm Patch] 1 patch TOP DAILY PRN 06/20/18 11:45 [place] Discontinuation [RC] ONCE 06/20/18 Lunch Low Sodium Diet [DIET] 06/21/18 05:00 LIVER PANEL [CHEM] Routine Subjective - Subjective Patient Reports: Feeling Better Nursing Reports: Other (Points to hip when winces in pain, also when feet touched) Objective Vital Signs: Vital Signs - 24 hr 06/19/18 06/19/18 06/19/18 16:00 18:00 20:00 Temperature 98.5 C H 37.3 C Heart Rate [ 78 78 85 Monitoring electrodes] Respiratory 24 19 37 H Rate Blood Pressure 121/77 131/75 H [Left Radial artery] Blood Pressure [Right Brachial artery] O2 Saturation 93 93 94 06/19/18 06/19/18 06/20/18 21:00 23:58 02:56 Temperature 36.7 C 37.0 C 36.9 C Heart Rate [ 80 74 72 Monitoring electrodes] Respiratory 22 15 28 H Rate Blood Pressure [Left Radial artery] Blood Pressure 152/97 H 125/77 121/82 H [Right Brachial artery] O2 Saturation 97 96 97 06/20/18 06/20/18 06/20/18 04:00 06:00 06:26 Temperature 36.9 C Heart Rate [ 76 82 Monitoring electrodes] Respiratory 24 24 Rate Blood Pressure 155/105 H 156/94 H [Left Radial artery] Blood Pressure [Right Brachial artery] O2 Saturation 95 97 06/20/18 09:00 Temperature 36.7 C Heart Rate [ 80 Monitoring electrodes] Respiratory 28 H Rate Blood Pressure 100/75 [Left Radial artery] Blood Pressure [Right Brachial artery] O2 Saturation 97 Oxygen O2 Source Room air I&O (Last 24 Hrs): Intake and Output Totals x24h 06/18/18 06/19/18 06/20/18 23:59 23:59 23:59 Intake Total 5875.875 2906.333 1210 Output Total 4095 2915 1295 Balance 1780.875 -8.667 -85 General: Alert, Oriented x3 HEENT: Mucous membr. moist/pink, Other (Cheeks flushed) Neck: Supple Neuro: Alert, Non Focal, Other (Comments are inappropriate at times) Respiratory: No respiratory distress, Breath sounds nml Abdomen: Soft, Other (Obese with pannus) Extremities: No clubbing, Other (Tender dorsum of feet) - Results Results: Laboratory Results WBC 10.8 x10^3/uL (4.8-10.8) 06/19/18 05:00 RBC 4.60 10^6/uL (4.70-6.10) L 06/19/18 05:00 Hgb 15.4 g/dL (14.0-18.0) 06/19/18 05:00 Hct 46.6 % (42.0-52.0) 06/19/18 05:00 MCV 101.4 fL (80.0-94.0) H 06/19/18 05:00 MCH 33.6 pg (27.0-31.0) H 06/19/18 05:00 MCHC 33.1 g/dL (32.0-36.0) 06/19/18 05:00 RDW 14.3 % (12.0-15.0) 06/19/18 05:00 Plt Count 205 10^3/uL (130-450) 06/19/18 05:00 MPV 8.6 fL (7.4-11.4) 06/19/18 05:00 Neut # (Auto) 7.7 10^3/uL (1.5-6.6) H 06/19/18 05:00 Lymph # (Auto) 1.4 10^3/uL (1.5-3.5) L 06/19/18 05:00 [place] # (Auto) 1.3 10^3/uL (0.0-1.0) H 06/19/18 05:00 Eos # (Auto) 0.3 10^3/uL (0.0-0.7) 06/19/18 05:00 Baso # (Auto) 0.1 10^3/uL (0.0-0.1) 06/19/18 05:00 Absolute Nucleated RBC 0.00 x10^3/uL 06/19/18 05:00 Nucleated RBC % 0.0 /100WBC 06/19/18 05:00 PT 16.3 secs (9.9-12.6) H 06/14/18 10:26 INR 1.5 (0.8-1.2) H 06/14/18 10:26 Sodium 136 mmol/L (135-145) 06/19/18 05:00 Potassium 4.3 mmol/L (3.5-5.0) 06/19/18 05:00 Chloride 102 mmol/L (101-111) 06/19/18 05:00 Carbon Dioxide 23 mmol/L (21-32) 06/19/18 05:00 Anion Gap 11.0 (6-13) 06/19/18 05:00 BUN 11 mg/dL (6-20) 06/19/18 05:00 Creatinine 0.9 mg/dL (0.6-1.2) 06/19/18 05:00 Estimated GFR (MDRD) 82 (>89) L 06/19/18 05:00 Glucose 103 mg/dL (70-100) H 06/19/18 05:00 Lactic Acid 1.2 mmol/L (0.5-2.2) 06/16/18 08:15 Calcium 8.9 mg/dL (8.5-10.3) 06/19/18 05:00 Ionized Calcium NO 06/17/18 04:52 Phosphorus 4.3 mg/dL (2.5-4.6) 06/19/18 05:00 Magnesium 1.7 mg/dL (1.7-2.8) 06/18/18 04:30 Total Bilirubin 2.0 mg/dL (0.2-1.0) H 06/13/18 10:55 AST 38 IU/L (10-42) 06/13/18 10:55 ALT 33 IU/L (10-60) 06/13/18 10:55 Alkaline Phosphatase 65 IU/L (42-121) 06/13/18 10:55 Ammonia 11.3 umol/L (7-35) 06/19/18 14:01 Troponin I < 0.04 ng/mL (<0.49) 06/18/18 04:30 Total Protein 6.5 g/dL (6.7-8.2) L 06/13/18 10:55 Albumin 3.2 g/dL (3.2-5.5) 06/19/18 05:00 Globulin 2.9 g/dL (2.1-4.2) 06/13/18 10:55 Albumin/Globulin Ratio 1.2 (1.0-2.2) 06/13/18 10:55 Triglycerides 84 mg/dL (-149) 06/14/18 04:40 Cholesterol 150 mg/dL (-199) 06/14/18 04:40 LDL Cholesterol, Calc 92 mg/dL (-129) 06/14/18 04:40 VLDL Cholesterol 17 mg/dL 06/14/18 04:40 HDL Cholesterol 41 mg/dL (60-) L 06/14/18 04:40 LDL/HDL Ratio 2.2 (<3.6) 06/14/18 04:40 Cholesterol/HDL Ratio 3.7 (<5.0) 06/14/18 04:40 Lipase 28 U/L (22-51) 06/13/18 10:55 Vitamin B12 1124 pg/mL (180-914) H 06/13/18 10:00 TSH < 0.08 uIU/mL (0.34-5.60) L 06/13/18 10:00 Free T4 3.03 ng/dL (0.58-1.64) H 06/13/18 10:00 Free T3 pg/mL 4.81 pg/mL (2.5-3.9) H 06/13/18 10:00 Plasma Epinephrine TNP 06/16/18 05:10 Urine Color YELLOW 06/19/18 14:11 Urine Clarity CLEAR (CLEAR) 06/19/18 14:11 Urine pH 6.0 PH (5.0-7.5) 06/19/18 14:11 Ur Specific [place] 1.010 (1.002-1.030) 06/19/18 14:11 Urine Protein NEGATIVE mg/dL (NEGATIVE) 06/19/18 14:11 Urine Glucose (UA) NEGATIVE mg/dL (NEGATIVE) 06/19/18 14:11 Urine Ketones NEGATIVE mg/dL (NEGATIVE) 06/19/18 14:11 Urine Occult Blood LARGE (NEGATIVE) H 06/19/18 14:11 Urine Nitrite NEGATIVE (NEGATIVE) 06/19/18 14:11 Urine Bilirubin NEGATIVE (NEGATIVE) 06/19/18 14:11 Urine Urobilinogen 4 E.U./dL (NORMAL) H 06/19/18 14:11 Ur Leukocyte Esterase TRACE (NEGATIVE) H 06/19/18 14:11 Urine RBC 11-25 /HPF (0-5) H 06/19/18 14:11 Urine WBC 6-10 /HPF (0-3) H 06/19/18 14:11 Ur Squamous Epith Cells NONE SEEN (<= Few) 06/19/18 14:11 Urine Bacteria Few /HPF (None Seen) 06/19/18 14:11 Ur Microscopic Review INDICATED 06/13/18 12:00 Urine Culture Comments INDICATED 06/19/18 14:11 CSF Color COLORLESS (COLORLESS) 06/16/18 17:20 CSF Clarity CLEAR (CLEAR) 06/16/18 17:20 Xanthrochromic ABSENT (ABSENT) 06/16/18 17:20 CSF WBC 0 /mm^3 (0-5) 06/16/18 17:20 CSF RBC 0 /mm^3 (0-1) 06/16/18 17:20 CSF Cell Count Tube # CSF TUBE# 3 06/16/18 17:20 CSF Glucose 69 mg/dL (45-70) 06/16/18 17:20 CSF Total Protein 62 mg/dL (15-60) H 06/16/18 17:20 Nasal Screen MRSA (PCR) NEGATIVE (NEGATIVE) 06/19/18 Unknown Last Dose Date UNK 06/17/18 04:52 Last Dose Time K 06/17/18 04:52 Digoxin 1.2 ng/mL 06/17/18 04:52 Urine Opiates Screen POSITIVE (NEGATIVE) H 06/13/18 14:38 Ur Oxycodone Screen NEGATIVE (NEGATIVE) 06/13/18 14:38 Urine Methadone Screen NEGATIVE (NEGATIVE) 06/13/18 14:38 Ur Propoxyphene Screen NEGATIVE (NEGATIVE) 06/13/18 14:38 Ur Barbiturates Screen NEGATIVE (NEGATIVE) 06/13/18 14:38 Ur Tricyclics Screen NEGATIVE (NEGATIVE) 06/13/18 14:38 Ur Phencyclidine Scrn NEGATIVE (NEGATIVE) 06/13/18 14:38 Ur Amphetamine Screen NEGATIVE (NEGATIVE) 06/13/18 14:38 U Methamphetamines Scrn NEGATIVE (NEGATIVE) 06/13/18 14:38 U Benzodiazepines Scrn NEGATIVE (NEGATIVE) 06/13/18 14:38 Urine Cocaine Screen NEGATIVE (NEGATIVE) 06/13/18 14:38 U Cannabinoids Screen POSITIVE (NEGATIVE) H 06/13/18 14:38 Thyroglobulin Antibody <1 IU/mL (< or = 1) 06/14/18 08:15 Thyroid Peroxidase Ab <1 IU/mL (<9) 06/14/18 08:15 Hepatitis A IgM Ab NON-REACTIVE (NON-REACTIVE) 06/13/18 14:06 Hep Bs Antigen NON-REACTIVE (NON-REACTIVE) 06/13/18 14:06 Hep B Core IgM Ab NON-REACTIVE (NON-REACTIVE) 06/13/18 14:06 Hepatitis C Antibody NON-REACTIVE (NON-REACTIVE) 06/13/18 14:06 Hep C Ab Signal/Cutoff 0.00 (<1.00) 06/13/18 14:06 HSV I IgG Ab <0.90 index 06/13/18 14:06 HSV II IgG 6.84 index H 06/13/18 14:06 HIV 1&2 Ag/Ab, 4th Gen NON-REACTIVE (NON-REACTIVE) 06/13/18 14:06 Influenza A (Rapid) Negative (Negative) 06/14/18 12:14 Influenza B (Rapid) Negative (Negative) 06/14/18 12:14 Ref Lab Test Result REPORT 06/16/18 17:20
[2018-06-20] MEDS: CAPSAICIN 0.025% CREAM 60 GM TUBE TOP PRN ×2 (16:40→20:38)
[2018-06-20] MEDS: RIVAROXABAN 10 MG TABLET PO SCH (16:59)
[2018-06-20] MEDS: HYDROcod/ACETAM 7.5 MG/325 MG TABLET PO PRN (20:36)
[2018-06-21] MEDS: SODIUM CHLORIDE FLUSH 0.9% 10 ML SYRINGE IVP PRN ×2 (05:14→15:41)
[2018-06-21] MEDS: THIAMINE INJ 500 MG in SODIUM CHLORIDE 0.9% 50 ML IV SCH ×3 (05:48→21:56)
[2018-06-21 05:57] LABS: ALBUMIN 2.7 g/dL (3.2-5.5); BILIRUBIN,DIRECT 0.4 mg/dL (0.1-0.5); BILIRUBIN,TOTAL 1.5 mg/dL (0.2-1.0); TOTAL PROTEIN 5.8 g/dL (6.7-8.2)
[2018-06-21] MEDS: MULTIVITAMIN W/MINERALS TABLET PO SCH (09:36)
[2018-06-21] MEDS: ISOSORBIDE MONONITRATE ER 30 MG TABLET PO SCH (09:36)
[2018-06-21] MEDS: POTASSIUM CHLORIDE 10 MEQ CAPSULE PO SCH (09:36)
[2018-06-21] MEDS: hydrALAZINE 25 MG TABLET PO SCH ×4 (09:37→20:14)
[2018-06-21] MEDS: FOLIC ACID 1 MG TABLET PO SCH (09:37)
[2018-06-21] MEDS: LISINOPRIL 20 MG TABLET PO SCH ×2 (09:37→21:55)
[2018-06-21] MEDS: METOPROLOL SUCCINATE 50 MG TABLET PO SCH ×2 (09:38→20:14)
[2018-06-21] MEDS: methIMAzole 5 MG TABLET PO SCH (09:38)
[2018-06-21] MEDS: HYDROXYCHLOROQUINE 200 MG TABLET PO SCH (09:39)
[2018-06-21] MEDS: HYDROcod/ACETAM 7.5 MG/325 MG TABLET PO PRN ×2 (09:39→20:13)
[2018-06-21] MEDS: buPROPion SR 150 MG TABLET PO SCH ×2 (09:40→20:14)
[2018-06-21] MEDS: POLYETHYLENE GLYCOL 3350 17 GM PACKET PO SCH (09:41)
[2018-06-21] MEDS: FLUTICASONE NASAL SPRAY NAS SCH (09:41)
[2018-06-21] MEDS: LIDOCAINE PATCH 5% TOP PRN (09:44)
[2018-06-21] MEDS: SODIUM CHLORIDE FLUSH 0.9% 10 ML SYRINGE IVP SCH ×3 (09:45→21:55)
--- NOTE | 2018-06-21 10:28 | PROVIDER PROGRESS NOTE ---
Assessment/Plan - Problem List (1) UTI (urinary tract infection) due to Enterococcus Assessment/Plan: The U/A was a good specimen and is growing Enterococcus. Whit[place] was removed yesterday. Will begin po Augmentin 875 mg bid for a 10 day course. (2) Catheter-associated urinary tract infection Qualifiers: Encounter type: subsequent encounter Assessment/Plan: The [place] was removed yesterday. Begin treatment for UTI, as above. (3) Wernicke-Korsakoff syndrome (alcoholic) Assessment/Plan: Continue with iv Thiamine very high dose for 3 days, today is day #2. Continue abstinence for alcohol, discussed with pt and his spouse yesterday. Continue with PT. He will need a SNF due to marked deconditioning (was in ICU for a week) at [facility], which is planned in 1-2 days. SW is working on arranging a SNF and [facility] to authorize. He will be transferred out of ICU today. (4) Alcohol abuse Assessment/Plan: As in #3 (5) HTN (hypertension) Assessment/Plan: Stable on current meds (6) Chronic a-fib Assessment/Plan: Stable HR on current meds and on daily Xarelto. (7) Ribs, multiple fractures Qualifiers: Laterality: left Assessment/Plan: "Floating" rib was confirmed this admission. Continue tid Incentive Spirometry, now that he is more licid and cooperates and follows commands. (8) Hyperthyroidism determined by thyroid function test Assessment/Plan: Continue B-iban and Tapazole. I discussed the nodule found on thyroid US, when I spoke to his PCP 2 days ago, will need future F/U. (9) History of lacunar cerebrovascular accident (CVA) Assessment/Plan: Seen on brain imaging. This is adding to his dementia. PT to assess gait, regarding possible ataxia, and he needs PT rehab. (10) Hx of psoriatic arthritis Assessment/Plan: Patient is on his home meds fpor this. His hip pain and LBP are now also being treated with Lidocaine patch, Capsacin cream and Vicodin po bid prn (which was a home med, only reconciled yesterday). 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 - Current Meds Current Meds: Current Medications Generic Name Dose Route Start Last Admin Trade Name Freq PRN Reason Stop Dose Admin Acetaminophen 650 mg 06/13/18 13:55 06/17/18 01:19 Tylenol PO 650 mg Q4HR PRN Administration Pain 1 to 4 Hydrocodone Bitart/Acetaminophen 1 tab 06/20/18 21:00 06/21/18 09:39 [place] 7.5/325 PO 1 tab BID PRN Administration PAIN Bupropion HCl 150 mg 06/18/18 21:00 06/21/18 09:40 Wellbutrin Sr PO 150 mg BID TERRY Administration Capsaicin 1 applic 06/20/18 16:16 06/20/18 20:38 Trixaicin 0.025% Cream TOP 1 applic QID PRN Administration PAIN Fluticasone Propionate 2 sprays 06/14/18 09:00 06/21/18 09:41 Flonase JAMIN 2 spray DAILY TERRY Administration Folic Acid 1 mg 06/14/18 09:00 06/21/18 09:37 PO 1 mg DAILY TERRY Administration Heparin Sodium (Beef Lung) 30 - 50 unit 06/18/18 16:58 06/21/18 05:15 IVP 150 unit PRN PRN Administration Central Line Protocol (<24 hr) Hydralazine HCl 50 mg 06/18/18 09:00 06/21/18 09:37 Apresoline PO 50 mg QID TERRY Administration Hydroxychloroquine Sulfate 400 mg 06/19/18 08:00 06/20/18 08:24 Plaquenil PO 400 mg DAILYWM TERRY Administration Thiamine HCl 500 mg/ Sodium 55 mls @ 100 mls/hr 06/19/18 19:00 06/21/18 06:21 Chloride IV 06/22/18 12:00 Infused TID TERRY Infusion Isosorbide Mononitrate 60 mg 06/18/18 12:00 06/21/18 09:36 Imdur PO 60 mg DAILY TERRY Administration Lidocaine 1 patch 06/20/18 09:12 06/21/18 09:44 Lidoderm Patch TOP 1 patch DAILY PRN Administration PAIN Lidocaine HCl 2.5 ml 06/15/18 18:06 06/15/18 18:48 Xylocaine Uro-Jet 2% UR 2.5 ml Q6HR PRN Administration PAIN Lisinopril 40 mg 06/18/18 21:00 06/21/18 09:37 Zestril PO 40 mg BID TERRY Administration Methimazole 10 mg 06/16/18 08:15 06/21/18 09:38 Tapazole PO 10 mg DAILYWM TERRY Administration Metoprolol Succinate 100 mg 06/18/18 21:00 06/21/18 09:38 Toprol Xl PO 100 mg BID TERRY Administration Multi-Ingredient Ointment 1 applic 06/19/18 18:17 06/20/18 10:21 Zinc Oxide TOP 1 applic PRN PRN Administration Skin Care Multivitamins/Minerals 1 tab 06/18/18 17:00 06/21/18 09:36 Theragran M PO 1 tab DAILYWM TERRY Administration Nystatin 1 applic 06/14/18 09:00 06/20/18 20:37 Nystop TOP 1 applic BID TERRY Administration Olanzapine 2.5 mg 06/17/18 07:56 06/17/18 22:17 Zyprexa Odt TL 2.5 mg TID PRN Administration psychosis Ondansetron HCl 4 mg 06/13/18 13:55 06/18/18 17:22 Zofran Odt TL 4 mg Q6HR PRN Administration Nausea / Vomiting Polyethylene Glycol 17 gm 06/14/18 09:00 06/21/18 09:41 Miralax PO 17 gm DAILY TERRY Administration Potassium Chloride 10 meq 06/14/18 09:00 06/21/18 09:36 Micro-K PO 10 meq DAILY TERRY Administration Rivaroxaban 20 mg 06/16/18 18:00 06/20/18 16:59 Xarelto PO 20 mg 1700 TERRY Administration Sodium Chloride 10 ml 06/13/18 13:55 06/21/18 05:14 Normal Saline Flush 0.9% IVP 30 ml PRN PRN Administration NEEDED PER PROVIDER ORDERS Sodium Chloride 10 ml 06/13/18 17:00 06/21/18 09:45 Normal Saline Flush 0.9% IVP 30 ml 0100,0900,1700 TERRY Administration - Lab Result Fish Bone Diagrams: 06/19/18 05:00 06/19/18 05:00 - Additional Planning My Orders: My Active Orders 06/20/18 16:16 Capsaicin 0.025% Cream [Trixaicin 0.025% Cream] 1 applic TOP QID PRN 06/20/18 21:00 HYDROcodone/ACET 7.5/325 [[place] 7.5/325] 1 tab PO BID PRN 06/20/18 Lunch Low Sodium Diet [DIET] 06/21/18 07:53 Transfer [Admit \\ Transfer \\ Status] [RC] .ONCE 06/23/18 09:00 Thiamine Inj [Vitamin B-1 Inj] 250 mg Sodium Chloride 0.9% [Normal Saline 0.9%] 50 ml IV DAILY Subjective - Subjective Patient Reports: Feeling Better, Pain (of feet mostly today) Nursing Reports: Other (He is able to feed himself, swallows without any trouble) Objective Vital Signs: Vital Signs - 24 hr 06/20/18 06/20/18 06/20/18 13:00 16:00 18:00 Temperature 98 C H Heart Rate [ 75 73 79 Monitoring electrodes] Respiratory 19 21 24 Rate Blood Pressure 132/71 H 105/52 L 111/95 H [Left Radial artery] Blood Pressure [Right Brachial artery] O2 Saturation 94 95 96 06/20/18 06/21/18 06/21/18 21:00 00:23 03:00 Temperature 37 C 37 C Heart Rate [ 92 77 76 Monitoring electrodes] Respiratory 22 20 20 Rate Blood Pressure [Left Radial artery] Blood Pressure 131/67 H 116/71 [Right Brachial artery] O2 Saturation 98 92 95 06/21/18 06/21/18 06/21/18 06:00 07:00 08:18 Temperature 36.3 C L 37.3 C Heart Rate [ 71 81 85 Monitoring electrodes] Respiratory 14 24 20 Rate Blood Pressure 152/86 H [Left Radial artery] Blood Pressure 152/86 H 138/94 H [Right Brachial artery] O2 Saturation 95 94 Oxygen O2 Source Room air I&O (Last 24 Hrs): Intake and Output Totals x24h 06/19/18 06/20/18 06/21/18 23:59 23:59 23:59 Intake Total 2906.333 2530 1155 Output Total 2915 1820 560 Balance -8.667 710 595 General: Alert HEENT: Mucous membr. moist/pink Neck: No JVD Neuro: Disoriented, Other (Oriented to person and place, not time. 4/5 strength of upper and lower extremities,all equal.) Cardiovascular: Regular rate, No murmurs Respiratory: No respiratory distress, Breath sounds nml Abdomen: Soft, Other (Obese with pannus) Extremities: No edema, Other (Tender soles of feet.) - Results Results: Laboratory Results WBC 10.8 x10^3/uL (4.8-10.8) 06/19/18 05:00 RBC 4.60 10^6/uL (4.70-6.10) L 06/19/18 05:00 Hgb 15.4 g/dL (14.0-18.0) 06/19/18 05:00 Hct 46.6 % (42.0-52.0) 06/19/18 05:00 MCV 101.4 fL (80.0-94.0) H 06/19/18 05:00 MCH 33.6 pg (27.0-31.0) H 06/19/18 05:00 MCHC 33.1 g/dL (32.0-36.0) 06/19/18 05:00 RDW 14.3 % (12.0-15.0) 06/19/18 05:00 Plt Count 205 10^3/uL (130-450) 06/19/18 05:00 MPV 8.6 fL (7.4-11.4) 06/19/18 05:00 Neut # (Auto) 7.7 10^3/uL (1.5-6.6) H 06/19/18 05:00 Lymph # (Auto) 1.4 10^3/uL (1.5-3.5) L 06/19/18 05:00 [place] # (Auto) 1.3 10^3/uL (0.0-1.0) H 06/19/18 05:00 Eos # (Auto) 0.3 10^3/uL (0.0-0.7) 06/19/18 05:00 Baso # (Auto) 0.1 10^3/uL (0.0-0.1) 06/19/18 05:00 Absolute Nucleated RBC 0.00 x10^3/uL 06/19/18 05:00 Nucleated RBC % 0.0 /100WBC 06/19/18 05:00 PT 16.3 secs (9.9-12.6) H 06/14/18 10:26 INR 1.5 (0.8-1.2) H 06/14/18 10:26 Sodium 136 mmol/L (135-145) 06/19/18 05:00 Potassium 4.3 mmol/L (3.5-5.0) 06/19/18 05:00 Chloride 102 mmol/L (101-111) 06/19/18 05:00 Carbon Dioxide 23 mmol/L (21-32) 06/19/18 05:00 Anion Gap 11.0 (6-13) 06/19/18 05:00 BUN 11 mg/dL (6-20) 06/19/18 05:00 Creatinine 0.9 mg/dL (0.6-1.2) 06/19/18 05:00 Estimated GFR (MDRD) 82 (>89) L 06/19/18 05:00 Glucose 103 mg/dL (70-100) H 06/19/18 05:00 Lactic Acid 1.2 mmol/L (0.5-2.2) 06/16/18 08:15 Calcium 8.9 mg/dL (8.5-10.3) 06/19/18 05:00 Ionized Calcium NO 06/17/18 04:52 Phosphorus 4.3 mg/dL (2.5-4.6) 06/19/18 05:00 Magnesium 1.7 mg/dL (1.7-2.8) 06/18/18 04:30 Total Bilirubin 1.5 mg/dL (0.2-1.0) H 06/21/18 04:50 Direct Bilirubin 0.4 mg/dL (0.1-0.5) 06/21/18 04:50 AST 28 IU/L (10-42) 06/21/18 04:50 ALT 29 IU/L (10-60) 06/21/18 04:50 Alkaline Phosphatase 47 IU/L (42-121) 06/21/18 04:50 Ammonia 11.3 umol/L (7-35) 06/19/18 14:01 Troponin I < 0.04 ng/mL (<0.49) 06/18/18 04:30 Total Protein 5.8 g/dL (6.7-8.2) L 06/21/18 04:50 Albumin 2.7 g/dL (3.2-5.5) L 06/21/18 04:50 Globulin 3.1 g/dL (2.1-4.2) 06/21/18 04:50 Albumin/Globulin Ratio 1.2 (1.0-2.2) 06/13/18 10:55 Triglycerides 84 mg/dL (-149) 06/14/18 04:40 Cholesterol 150 mg/dL (-199) 06/14/18 04:40 LDL Cholesterol, Calc 92 mg/dL (-129) 06/14/18 04:40 VLDL Cholesterol 17 mg/dL 06/14/18 04:40 HDL Cholesterol 41 mg/dL (60-) L 06/14/18 04:40 LDL/HDL Ratio 2.2 (<3.6) 06/14/18 04:40 Cholesterol/HDL Ratio 3.7 (<5.0) 06/14/18 04:40 Lipase 28 U/L (22-51) 06/13/18 10:55 Vitamin B12 1124 pg/mL (180-914) H 06/13/18 10:00 TSH < 0.08 uIU/mL (0.34-5.60) L 06/13/18 10:00 Free T4 3.03 ng/dL (0.58-1.64) H 06/13/18 10:00 Free T3 pg/mL 4.81 pg/mL (2.5-3.9) H 06/13/18 10:00 Plas Tot Catecholamine Cancelled 06/16/18 05:10 Plasma Dopamine Cancelled 06/16/18 05:10 Plasma Epinephrine Cancelled 06/16/18 05:10 Plasma Norepinephrine Cancelled 06/16/18 05:10 Urine Color YELLOW 06/19/18 14:11 Urine Clarity CLEAR (CLEAR) 06/19/18 14:11 Urine pH 6.0 PH (5.0-7.5) 06/19/18 14:11 Ur Specific [place] 1.010 (1.002-1.030) 06/19/18 14:11 Urine Protein NEGATIVE mg/dL (NEGATIVE) 06/19/18 14:11 Urine Glucose (UA) NEGATIVE mg/dL (NEGATIVE) 06/19/18 14:11 Urine Ketones NEGATIVE mg/dL (NEGATIVE) 06/19/18 14:11 Urine Occult Blood LARGE (NEGATIVE) H 06/19/18 14:11 Urine Nitrite NEGATIVE (NEGATIVE) 06/19/18 14:11 Urine Bilirubin NEGATIVE (NEGATIVE) 06/19/18 14:11 Urine Urobilinogen 4 E.U./dL (NORMAL) H 06/19/18 14:11 Ur Leukocyte Esterase TRACE (NEGATIVE) H 06/19/18 14:11 Urine RBC 11-25 /HPF (0-5) H 06/19/18 14:11 Urine WBC 6-10 /HPF (0-3) H 06/19/18 14:11 Ur Squamous Epith Cells NONE SEEN (<= Few) 06/19/18 14:11 Urine Bacteria Few /HPF (None Seen) 06/19/18 14:11 Ur Microscopic Review INDICATED 06/13/18 12:00 Urine Culture Comments INDICATED 06/19/18 14:11 CSF Color COLORLESS (COLORLESS) 06/16/18 17:20 CSF Clarity CLEAR (CLEAR) 06/16/18 17:20 Xanthrochromic ABSENT (ABSENT) 06/16/18 17:20 CSF WBC 0 /mm^3 (0-5) 06/16/18 17:20 CSF RBC 0 /mm^3 (0-1) 06/16/18 17:20 CSF Cell Count Tube # CSF TUBE# 3 06/16/18 17:20 CSF Glucose 69 mg/dL (45-70) 06/16/18 17:20 CSF Total Protein 62 mg/dL (15-60) H 06/16/18 17:20 Nasal Screen MRSA (PCR) NEGATIVE (NEGATIVE) 06/19/18 Unknown Last Dose Date K 06/17/18 04:52 Last Dose Time [facility] 06/17/18 04:52 Digoxin 1.2 ng/mL 06/17/18 04:52 Urine Opiates Screen POSITIVE (NEGATIVE) H 06/13/18 14:38 Ur Oxycodone Screen NEGATIVE (NEGATIVE) 06/13/18 14:38 Urine Methadone Screen NEGATIVE (NEGATIVE) 06/13/18 14:38 Ur Propoxyphene Screen NEGATIVE (NEGATIVE) 06/13/18 14:38 Ur Barbiturates Screen NEGATIVE (NEGATIVE) 06/13/18 14:38 Ur Tricyclics Screen NEGATIVE (NEGATIVE) 06/13/18 14:38 Ur Phencyclidine Scrn NEGATIVE (NEGATIVE) 06/13/18 14:38 Ur Amphetamine Screen NEGATIVE (NEGATIVE) 06/13/18 14:38 U Methamphetamines Scrn NEGATIVE (NEGATIVE) 06/13/18 14:38 U Benzodiazepines Scrn NEGATIVE (NEGATIVE) 06/13/18 14:38 Urine Cocaine Screen NEGATIVE (NEGATIVE) 06/13/18 14:38 U Cannabinoids Screen POSITIVE (NEGATIVE) H 06/13/18 14:38 Thyroglobulin Antibody <1 IU/mL (< or = 1) 06/14/18 08:15 Thyroid Peroxidase Ab <1 IU/mL (<9) 06/14/18 08:15 Hepatitis A IgM Ab NON-REACTIVE (NON-REACTIVE) 06/13/18 14:06 Hep Bs Antigen NON-REACTIVE (NON-REACTIVE) 06/13/18 14:06 Hep B Core IgM Ab NON-REACTIVE (NON-REACTIVE) 06/13/18 14:06 Hepatitis C Antibody NON-REACTIVE (NON-REACTIVE) 06/13/18 14:06 Hep C Ab Signal/Cutoff 0.00 (<1.00) 06/13/18 14:06 HSV I IgG Ab <0.90 index 06/13/18 14:06 HSV II IgG 6.84 index H 06/13/18 14:06 HIV 1&2 Ag/Ab, 4th Gen NON-REACTIVE (NON-REACTIVE) 06/13/18 14:06 Influenza A (Rapid) Negative (Negative) 06/14/18 12:14 Influenza B (Rapid) Negative (Negative) 06/14/18 12:14 Ref Lab Test Result REPORT 06/16/18 17:20 ABX Reporting Has patient been on IV antibiotics over the past 48 hours?: No
[2018-06-21] MEDS: AMOX/CLAV 875 MG/125 MG TABLET PO SCH ×2 (12:19→20:13)
[2018-06-21] MEDS: NYSTATIN POWDER 15 GM TOP SCH ×2 (12:21→21:55)
[2018-06-21] MEDS: ACETAMINOPHEN 325 MG TABLET PO PRN (14:34)
[2018-06-21] MEDS: CAPSAICIN 0.025% CREAM 60 GM TUBE TOP PRN ×3 (14:35→21:56)
[2018-06-21] MEDS: MIN OIL/DIMETHICON/COCONUT OIL 92 GM TUBE TOP PRN (15:39)
[2018-06-21] MEDS: RIVAROXABAN 10 MG TABLET PO SCH (18:44)
[2018-06-22] MEDS: THIAMINE INJ 500 MG in SODIUM CHLORIDE 0.9% 50 ML IV SCH (05:54)
[2018-06-22] MEDS: SODIUM CHLORIDE FLUSH 0.9% 10 ML SYRINGE IVP PRN (06:35)
[2018-06-22] MEDS: HYDROcod/ACETAM 7.5 MG/325 MG TABLET PO PRN ×2 (08:05→21:09)
[2018-06-22] MEDS: methIMAzole 5 MG TABLET PO SCH (08:08)
[2018-06-22] MEDS: MULTIVITAMIN W/MINERALS TABLET PO SCH (08:08)
[2018-06-22] MEDS: ISOSORBIDE MONONITRATE ER 30 MG TABLET PO SCH (08:08)
[2018-06-22] MEDS: SODIUM CHLORIDE FLUSH 0.9% 10 ML SYRINGE IVP SCH (08:10)
[2018-06-22] MEDS: HYDROXYCHLOROQUINE 200 MG TABLET PO SCH (08:14)
[2018-06-22] MEDS: AMOX/CLAV 875 MG/125 MG TABLET PO SCH ×2 (09:48→21:08)
[2018-06-22] MEDS: LISINOPRIL 20 MG TABLET PO SCH ×2 (09:49→21:09)
[2018-06-22] MEDS: FOLIC ACID 1 MG TABLET PO SCH (09:49)
[2018-06-22] MEDS: buPROPion SR 150 MG TABLET PO SCH ×2 (09:49→21:09)
[2018-06-22] MEDS: METOPROLOL SUCCINATE 50 MG TABLET PO SCH ×2 (09:50→21:09)
[2018-06-22] MEDS: POTASSIUM CHLORIDE 10 MEQ CAPSULE PO SCH (09:51)
[2018-06-22] MEDS: POLYETHYLENE GLYCOL 3350 17 GM PACKET PO SCH (09:52)
[2018-06-22] MEDS: FLUTICASONE NASAL SPRAY NAS SCH (09:54)
[2018-06-22] MEDS: NYSTATIN POWDER 15 GM TOP SCH ×2 (09:55→21:10)
--- NOTE | 2018-06-22 10:41 | PROVIDER PROGRESS NOTE ---
Assessment/Plan - Problem List (1) UTI (urinary tract infection) due to Enterococcus Assessment/Plan: He has no dysuria and is urinating into urinal, no [place] for 2 days. Continue po antibiotics, a 10 day course is planned. (2) Catheter-associated urinary tract infection Qualifiers: Encounter type: subsequent encounter Assessment/Plan: As above. (3) Decubitus ulcer of coccygeal region, stage 1 Assessment/Plan: Will order a donut and more OOB to chair. Shower today. (4) Wernicke-Korsakoff syndrome (alcoholic) Assessment/Plan: Continue Thiamine replacement by i.v., today he started the 250 mg a day dose. he will be on Thiamine 100 mg daily for life. He still has marked memory lapses. He has been able to feed himself for the past 2 days now. I watched the patient perform rehab with physical therapy today. He could not bear weight on his left leg because of "[id number] pain in his left foot." He was able to rise on his own, he did pivot and sit in a recliner chair for the first time in this admission. He is unable to take any steps yet to evaluate his gait. He has marked deconditioning because of being in the ICU for over a week. SNF for aggressive PT rehab is planned at discharge (5) Alcohol abuse Assessment/Plan: As above. He plans to be abstinent from alcohol, he said yesterday. (6) HTN (hypertension) Assessment/Plan: Controlled on present medication (7) Chronic a-fib Assessment/Plan: Heart rate is controlled on present medications. He remains on his prehospital Xarelto dose with no signs of bleeding or bruising (8) Ribs, multiple fractures Qualifiers: Laterality: left Assessment/Plan: There have been no complaints of pain in his "floating rib" area for the past 2 days (9) Hyperthyroidism determined by thyroid function test Assessment/Plan: He is on beta-blockers with an adequate heart rate and Tapazole was started during this admission. He will need outpatient endocrinology evaluation and management. 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 (13) Aortic stenosis, mild Assessment/Plan: Stable (14) Pulmonary HTN Assessment/Plan: No pulmonary complaints this entire admission - Current Meds Current Meds: Current Medications Generic Name Dose Route Start Last Admin Trade Name Freq PRN Reason Stop Dose Admin Acetaminophen 650 mg 06/13/18 13:55 06/21/18 14:34 Tylenol PO 650 mg Q4HR PRN Administration Pain 1 to 4 Hydrocodone Bitart/Acetaminophen 1 tab 06/20/18 21:00 06/22/18 08:05 [place] 7.5/325 PO 1 tab BID PRN Administration PAIN Amoxicillin/Clavulanate Potassium 1 tab 06/21/18 11:00 06/22/18 09:48 Augmentin 875/125 PO 06/26/18 01:00 1 tab BID TERRY Administration Bupropion HCl 150 mg 06/18/18 21:00 06/22/18 09:49 Wellbutrin Sr PO 150 mg BID TERRY Administration Capsaicin 1 applic 06/20/18 16:16 06/21/18 21:56 Trixaicin 0.025% Cream TOP 1 applic QID PRN Administration PAIN Fluticasone Propionate 2 sprays 06/14/18 09:00 06/22/18 09:54 Flonase JAMIN 2 spray DAILY TERRY Administration Folic Acid 1 mg 06/14/18 09:00 06/22/18 09:49 PO 1 mg DAILY TERRY Administration Heparin Sodium (Beef Lung) 30 - 50 unit 06/18/18 16:58 06/22/18 08:11 IVP 90 unit PRN PRN Administration Central Line Protocol (<24 hr) Hydralazine HCl 50 mg 06/18/18 09:00 06/21/18 20:14 Apresoline PO 50 mg QID TERRY Administration Hydroxychloroquine Sulfate 400 mg 06/19/18 08:00 06/22/18 08:14 Plaquenil PO 400 mg DAILYWM TERRY Administration Thiamine HCl 500 mg/ Sodium 55 mls @ 100 mls/hr 06/19/18 19:00 06/22/18 06:35 Chloride IV 06/22/18 12:00 Infused TID TERRY Infusion Isosorbide Mononitrate 60 mg 06/18/18 12:00 06/22/18 08:08 Imdur PO 60 mg DAILY TERRY Administration Lidocaine 1 patch 06/20/18 09:12 06/21/18 09:44 Lidoderm Patch TOP 1 patch DAILY PRN Administration PAIN Lidocaine HCl 2.5 ml 06/15/18 18:06 06/15/18 18:48 Xylocaine Uro-Jet 2% UR 2.5 ml Q6HR PRN Administration PAIN Lisinopril 40 mg 06/18/18 21:00 06/22/18 09:49 Zestril PO 40 mg BID TERRY Administration Methimazole 10 mg 06/16/18 08:15 06/22/18 08:08 Tapazole PO 10 mg DAILYWM TERRY Administration Metoprolol Succinate 100 mg 06/18/18 21:00 06/22/18 09:50 Toprol Xl PO 100 mg BID TERRY Administration Mineral Oil 1 applic 06/21/18 14:30 06/21/18 15:39 Cavilon TOP 1 applic PRN PRN Administration Skin Care Multi-Ingredient Ointment 1 applic 06/19/18 18:17 06/20/18 10:21 Zinc Oxide TOP 1 applic PRN PRN Administration Skin Care Multivitamins/Minerals 1 tab 06/18/18 17:00 06/22/18 08:08 Theragran M PO 1 tab DAILYWM TERRY Administration Nystatin 1 applic 06/14/18 09:00 06/22/18 09:55 Nystop TOP 1 applic BID TERRY Administration Olanzapine 2.5 mg 06/17/18 07:56 06/17/18 22:17 Zyprexa Odt TL 2.5 mg TID PRN Administration psychosis Ondansetron HCl 4 mg 06/13/18 13:55 06/18/18 17:22 Zofran Odt TL 4 mg Q6HR PRN Administration Nausea / Vomiting Polyethylene Glycol 17 gm 06/14/18 09:00 06/22/18 09:52 Miralax PO 17 gm DAILY TERRY Administration Potassium Chloride 10 meq 06/14/18 09:00 06/22/18 09:51 Micro-K PO 10 meq DAILY TERRY Administration Rivaroxaban 20 mg 06/16/18 18:00 06/21/18 18:44 Xarelto PO 20 mg 1700 TERRY Administration Sodium Chloride 10 ml 06/13/18 13:55 06/22/18 06:35 Normal Saline Flush 0.9% IVP 30 ml PRN PRN Administration NEEDED PER PROVIDER ORDERS Sodium Chloride 10 ml 06/13/18 17:00 06/22/18 08:10 Normal Saline Flush 0.9% IVP 30 ml 0100,0900,1700 TERRY Administration - Lab Result Fish Bone Diagrams: 06/19/18 05:00 06/19/18 05:00 - Additional Planning My Orders: My Active Orders 06/21/18 11:00 Amox/Clav 875/125 [Augmentin 875/125] 1 tab PO BID 06/21/18 14:30 Min Oil/Dimeth/Coconut Oil Crm [Cavilon] 1 applic TOP PRN PRN 06/21/18 18:39 Central Line Discontinuation [RC] .ONCE 06/23/18 09:00 Thiamine Inj [Vitamin B-1 Inj] 250 mg Sodium Chloride 0.9% [Normal Saline 0.9%] 50 ml IV DAILY Subjective - Subjective Patient Reports: Resting Comfortably, Other (Patient stated he "hasn't been in contact with Kofi in a week". (In fact, Kofi, his spouse has been here every day).) Nursing Reports: Other (Redness over coccyx, non-blanching, but not tender) Objective Vital Signs: Vital Signs - 24 hr 06/21/18 06/21/18 06/21/18 14:00 16:40 18:50 Temperature 36.3 C L 37 C Heart Rate [ 68 70 78 Monitoring electrodes] Respiratory 18 17 25 H Rate Blood Pressure 161/74 H [Left Radial artery] Blood Pressure 97/65 110/64 [Right Brachial artery] O2 Saturation 95 93 06/21/18 06/21/18 06/22/18 20:03 23:17 06:00 Temperature 37.3 C 37 C Heart Rate [ 77 77 74 Monitoring electrodes] Respiratory 23 22 20 Rate Blood Pressure [Left Radial artery] Blood Pressure 121/77 133/85 H 139/80 H [Right Brachial artery] O2 Saturation 94 95 06/22/18 07:43 Temperature 37.5 C Heart Rate [ 70 Monitoring electrodes] Respiratory 14 Rate Blood Pressure [Left Radial artery] Blood Pressure 138/93 H [Right Brachial artery] O2 Saturation 95 Oxygen O2 Source Room air I&O (Last 24 Hrs): Intake and Output Totals x24h 06/20/18 06/21/18 06/22/18 23:59 23:59 23:59 Intake Total 2530 3315 1205 Output Total 1820 1260 450 Balance 710 2055 755 General: Alert, Cooperative HEENT: Mucous membr. moist/pink, Other (Cheeks are flushed) Neuro: Disoriented Cardiovascular: Regular rate, No murmurs Respiratory: No respiratory distress Abdomen: Soft, Other (Obese) Rectal: Other (Dark red skin over sacral area) Extremities: No edema - Results Results: Laboratory Results WBC 10.8 x10^3/uL (4.8-10.8) 06/19/18 05:00 RBC 4.60 10^6/uL (4.70-6.10) L 06/19/18 05:00 Hgb 15.4 g/dL (14.0-18.0) 06/19/18 05:00 Hct 46.6 % (42.0-52.0) 06/19/18 05:00 MCV 101.4 fL (80.0-94.0) H 06/19/18 05:00 MCH 33.6 pg (27.0-31.0) H 06/19/18 05:00 MCHC 33.1 g/dL (32.0-36.0) 06/19/18 05:00 RDW 14.3 % (12.0-15.0) 06/19/18 05:00 Plt Count 205 10^3/uL (130-450) 06/19/18 05:00 MPV 8.6 fL (7.4-11.4) 06/19/18 05:00 Neut # (Auto) 7.7 10^3/uL (1.5-6.6) H 06/19/18 05:00 Lymph # (Auto) 1.4 10^3/uL (1.5-3.5) L 06/19/18 05:00 [place] # (Auto) 1.3 10^3/uL (0.0-1.0) H 06/19/18 05:00 Eos # (Auto) 0.3 10^3/uL (0.0-0.7) 06/19/18 05:00 Baso # (Auto) 0.1 10^3/uL (0.0-0.1) 06/19/18 05:00 Absolute Nucleated RBC 0.00 x10^3/uL 06/19/18 05:00 Nucleated RBC % 0.0 /100WBC 06/19/18 05:00 PT 16.3 secs (9.9-12.6) H 06/14/18 10:26 INR 1.5 (0.8-1.2) H 06/14/18 10:26 Sodium 136 mmol/L (135-145) 06/19/18 05:00 Potassium 4.3 mmol/L (3.5-5.0) 06/19/18 05:00 Chloride 102 mmol/L (101-111) 06/19/18 05:00 Carbon Dioxide 23 mmol/L (21-32) 06/19/18 05:00 Anion Gap 11.0 (6-13) 06/19/18 05:00 BUN 11 mg/dL (6-20) 06/19/18 05:00 Creatinine 0.9 mg/dL (0.6-1.2) 06/19/18 05:00 Estimated GFR (MDRD) 82 (>89) L 06/19/18 05:00 Glucose 103 mg/dL (70-100) H 06/19/18 05:00 Lactic Acid 1.2 mmol/L (0.5-2.2) 06/16/18 08:15 Calcium 8.9 mg/dL (8.5-10.3) 06/19/18 05:00 Ionized Calcium NO 06/17/18 04:52 Phosphorus 4.3 mg/dL (2.5-4.6) 06/19/18 05:00 Magnesium 1.7 mg/dL (1.7-2.8) 06/18/18 04:30 Total Bilirubin 1.5 mg/dL (0.2-1.0) H 06/21/18 04:50 Direct Bilirubin 0.4 mg/dL (0.1-0.5) 06/21/18 04:50 AST 28 IU/L (10-42) 06/21/18 04:50 ALT 29 IU/L (10-60) 06/21/18 04:50 Alkaline Phosphatase 47 IU/L (42-121) 06/21/18 04:50 Ammonia 11.3 umol/L (7-35) 06/19/18 14:01 Troponin I < 0.04 ng/mL (<0.49) 06/18/18 04:30 Total Protein 5.8 g/dL (6.7-8.2) L 06/21/18 04:50 Albumin 2.7 g/dL (3.2-5.5) L 06/21/18 04:50 Globulin 3.1 g/dL (2.1-4.2) 06/21/18 04:50 Albumin/Globulin Ratio 1.2 (1.0-2.2) 06/13/18 10:55 Triglycerides 84 mg/dL (-149) 06/14/18 04:40 Cholesterol 150 mg/dL (-199) 06/14/18 04:40 LDL Cholesterol, Calc 92 mg/dL (-129) 06/14/18 04:40 VLDL Cholesterol 17 mg/dL 06/14/18 04:40 HDL Cholesterol 41 mg/dL (60-) L 06/14/18 04:40 LDL/HDL Ratio 2.2 (<3.6) 06/14/18 04:40 Cholesterol/HDL Ratio 3.7 (<5.0) 06/14/18 04:40 Lipase 28 U/L (22-51) 06/13/18 10:55 Vitamin B12 1124 pg/mL (180-914) H 06/13/18 10:00 TSH < 0.08 uIU/mL (0.34-5.60) L 06/13/18 10:00 Free T4 3.03 ng/dL (0.58-1.64) H 06/13/18 10:00 Free T3 pg/mL 4.81 pg/mL (2.5-3.9) H 06/13/18 10:00 Plas Tot Catecholamine Cancelled 06/16/18 05:10 Plasma Dopamine Cancelled 06/16/18 05:10 Plasma Epinephrine Cancelled 06/16/18 05:10 Plasma Norepinephrine Cancelled 06/16/18 05:10 Urine Color YELLOW 06/19/18 14:11 Urine Clarity CLEAR (CLEAR) 06/19/18 14:11 Urine pH 6.0 PH (5.0-7.5) 06/19/18 14:11 Ur Specific [place] 1.010 (1.002-1.030) 06/19/18 14:11 Urine Protein NEGATIVE mg/dL (NEGATIVE) 06/19/18 14:11 Urine Glucose (UA) NEGATIVE mg/dL (NEGATIVE) 06/19/18 14:11 Urine Ketones NEGATIVE mg/dL (NEGATIVE) 06/19/18 14:11 Urine Occult Blood LARGE (NEGATIVE) H 06/19/18 14:11 Urine Nitrite NEGATIVE (NEGATIVE) 06/19/18 14:11 Urine Bilirubin NEGATIVE (NEGATIVE) 06/19/18 14:11 Urine Urobilinogen 4 E.U./dL (NORMAL) H 06/19/18 14:11 Ur Leukocyte Esterase TRACE (NEGATIVE) H 06/19/18 14:11 Urine RBC 11-25 /HPF (0-5) H 06/19/18 14:11 Urine WBC 6-10 /HPF (0-3) H 06/19/18 14:11 Ur Squamous Epith Cells NONE SEEN (<= Few) 06/19/18 14:11 Urine Bacteria Few /HPF (None Seen) 06/19/18 14:11 Ur Microscopic Review INDICATED 06/13/18 12:00 Urine Culture Comments INDICATED 06/19/18 14:11 CSF Color COLORLESS (COLORLESS) 06/16/18 17:20 CSF Clarity CLEAR (CLEAR) 06/16/18 17:20 Xanthrochromic ABSENT (ABSENT) 06/16/18 17:20 CSF WBC 0 /mm^3 (0-5) 06/16/18 17:20 CSF RBC 0 /mm^3 (0-1) 06/16/18 17:20 CSF Cell Count Tube # CSF TUBE# 3 06/16/18 17:20 CSF Glucose 69 mg/dL (45-70) 06/16/18 17:20 CSF Total Protein 62 mg/dL (15-60) H 06/16/18 17:20 Nasal Screen MRSA (PCR) NEGATIVE (NEGATIVE) 06/19/18 Unknown Last Dose Date UNK 06/17/18 04:52 Last Dose Time UNK 06/17/18 04:52 Digoxin 1.2 ng/mL 06/17/18 04:52 Urine Opiates Screen POSITIVE (NEGATIVE) H 06/13/18 14:38 Ur Oxycodone Screen NEGATIVE (NEGATIVE) 06/13/18 14:38 Urine Methadone Screen NEGATIVE (NEGATIVE) 06/13/18 14:38 Ur Propoxyphene Screen NEGATIVE (NEGATIVE) 06/13/18 14:38 Ur Barbiturates Screen NEGATIVE (NEGATIVE) 06/13/18 14:38 Ur Tricyclics Screen NEGATIVE (NEGATIVE) 06/13/18 14:38 Ur Phencyclidine Scrn NEGATIVE (NEGATIVE) 06/13/18 14:38 Ur Amphetamine Screen NEGATIVE (NEGATIVE) 06/13/18 14:38 U Methamphetamines Scrn NEGATIVE (NEGATIVE) 06/13/18 14:38 U Benzodiazepines Scrn NEGATIVE (NEGATIVE) 06/13/18 14:38 Urine Cocaine Screen NEGATIVE (NEGATIVE) 06/13/18 14:38 U Cannabinoids Screen POSITIVE (NEGATIVE) H 06/13/18 14:38 Thyroglobulin Antibody <1 IU/mL (< or = 1) 06/14/18 08:15 Thyroid Peroxidase Ab <1 IU/mL (<9) 06/14/18 08:15 Hepatitis A IgM Ab NON-REACTIVE (NON-REACTIVE) 06/13/18 14:06 Hep Bs Antigen NON-REACTIVE (NON-REACTIVE) 06/13/18 14:06 Hep B Core IgM Ab NON-REACTIVE (NON-REACTIVE) 06/13/18 14:06 Hepatitis C Antibody NON-REACTIVE (NON-REACTIVE) 06/13/18 14:06 Hep C Ab Signal/Cutoff 0.00 (<1.00) 06/13/18 14:06 HSV I IgG Ab <0.90 index 06/13/18 14:06 HSV II IgG 6.84 index H 06/13/18 14:06 HIV 1&2 Ag/Ab, 4th Gen NON-REACTIVE (NON-REACTIVE) 06/13/18 14:06 Influenza A (Rapid) Negative (Negative) 06/14/18 12:14 Influenza B (Rapid) Negative (Negative) 06/14/18 12:14 Ref Lab Test Result REPORT 06/16/18 17:20
[2018-06-22 10:56] LABS: VITAMIN B1 (THIAMINE) PLASMA 15 nmol/L (8-30)
[2018-06-22] MEDS: hydrALAZINE 25 MG TABLET PO SCH ×4 (11:57→21:09)
[2018-06-22 15:26] LABS: CALCULATED TOTAL (E+NE) URINE 124 (9-74); DOPAMINE URINE 80 (40-390); EPINEPHRINE URINE 25 (2-16); NOREPINEPHRINE URINE 99 (7-65)
[2018-06-22] MEDS: RIVAROXABAN 10 MG TABLET PO SCH (17:14)
[2018-06-23] MEDS: HYDROXYCHLOROQUINE 200 MG TABLET PO SCH (07:48)
[2018-06-23] MEDS: MULTIVITAMIN W/MINERALS TABLET PO SCH (07:48)
[2018-06-23] MEDS: methIMAzole 5 MG TABLET PO SCH (07:49)
[2018-06-23] MEDS: buPROPion SR 150 MG TABLET PO SCH ×2 (09:35→20:57)
[2018-06-23] MEDS: AMOX/CLAV 875 MG/125 MG TABLET PO SCH ×2 (09:35→20:56)
[2018-06-23] MEDS: ISOSORBIDE MONONITRATE ER 30 MG TABLET PO SCH (09:37)
[2018-06-23] MEDS: FOLIC ACID 1 MG TABLET PO SCH (09:37)
[2018-06-23] MEDS: hydrALAZINE 25 MG TABLET PO SCH ×4 (09:37→20:57)
[2018-06-23] MEDS: LISINOPRIL 20 MG TABLET PO SCH ×2 (09:38→20:57)
[2018-06-23] MEDS: METOPROLOL SUCCINATE 50 MG TABLET PO SCH ×2 (09:38→20:57)
[2018-06-23] MEDS: HYDROcod/ACETAM 7.5 MG/325 MG TABLET PO PRN ×2 (09:39→20:56)
[2018-06-23] MEDS: POTASSIUM CHLORIDE 10 MEQ CAPSULE PO SCH (09:39)
[2018-06-23] MEDS: POLYETHYLENE GLYCOL 3350 17 GM PACKET PO SCH (09:40)
[2018-06-23] MEDS: NYSTATIN POWDER 15 GM TOP SCH ×2 (09:40→21:12)
[2018-06-23] MEDS: FLUTICASONE NASAL SPRAY NAS SCH (09:41)
[2018-06-23] MEDS: THIAMINE INJ 250 MG in SODIUM CHLORIDE 0.9% 50 ML IV SCH (09:42)
--- NOTE | 2018-06-23 16:11 | PROVIDER PROGRESS NOTE ---
Assessment/Plan - Problem List (1) Hematuria Assessment/Plan: There is documented intermittent grossly bloody hematuria. Will evaluate for a stone, worsening UTI such as with pyelonephritis, or a mass in the urinary tract, by obtaining a CT of the abdomen. Continue to monitor. Will stop the Xarelto temporarily because of gross hematuria. (2) UTI (urinary tract infection) due to Enterococcus Assessment/Plan: Continue with antibiotic management. If pyelonephritis is identified with the CT (see above), will change to IV antibiotics. A 10-day course of treatment was planned for a CAUTI, but if this is pyelonephritis then will adjust to 21-day treatment for male (3) Catheter-associated urinary tract infection Qualifiers: Encounter type: subsequent encounter Assessment/Plan: As above in #1 and #2. (4) Decubitus ulcer of coccygeal region, stage 1 Assessment/Plan: Reposition ordered and more OOB to chair as of yesterday. (5) Wernicke-Korsakoff syndrome (alcoholic) Assessment/Plan: His memory is still poor and intermittently he is disoriented to time and place. He forgot that he needs help to get OOB, and tried to shimmy out between the bed rails. His RN now has the bed alrm set to any motion. I discussed this with the spouse, and that his memory may take longer to stabilize. He is now on Thiamine dosing 250 mg iv daily, after having Thiamine 500 mg iv daily x 3 days.. His peripheral neuropathy is suspected to be part of this syndrome, yesterday his left sole of his foot had [id number] pain, today he could bear weight on both legs. (6) Alcohol abuse Assessment/Plan: Abstinence now planned, as per patient. (7) HTN (hypertension) Assessment/Plan: BP is controlled on current medication (8) Chronic a-fib Assessment/Plan: Heart rate is controlled on current medications. The patient is on his daily Xarelto as well. This will be on hold tonight because of the hematuria (9) Ribs, multiple fractures Qualifiers: Laterality: left Assessment/Plan: Stable, no further complaints of pain or symptoms from "floating rib". (10) Hyperthyroidism determined by thyroid function test Assessment/Plan: Patient remains on beta-iban and Tapazole (11) History of lacunar cerebrovascular accident (CVA) Assessment/Plan: Today for the first day the patient was able to ambulate, walked 30 feet with physical therapy, I did not see his gait. He continues to have the intermittent disorientation and confusion however his "personality is back to its baseline", per his spouse who has visited every day. (12) Hx of psoriatic arthritis Assessment/Plan: Patient is on his home doses of arthritis medication, Joint pain is slightly better every day. (13) Chronic back pain Qualifiers: Back pain location: low back pain Assessment/Plan: Pain control has improved. He is also out of bed to chair now which is mandatory for every meal. (14) Aortic stenosis, mild Assessment/Plan: Found during this admission on echo (15) Pulmonary HTN Assessment/Plan: Found during this admission and echo. He has no pulmonary complaints - Current Meds Current Meds: Current Medications Generic Name Dose Route Start Last Admin Trade Name Freq PRN Reason Stop Dose Admin Acetaminophen 650 mg 06/13/18 13:55 06/21/18 14:34 Tylenol PO 650 mg Q4HR PRN Administration Pain 1 to 4 Hydrocodone Bitart/Acetaminophen 1 tab 06/20/18 21:00 06/23/18 09:39 [place] 7.5/325 PO 1 tab BID PRN Administration PAIN Amoxicillin/Clavulanate Potassium 1 tab 06/21/18 11:00 06/23/18 09:35 Augmentin 875/125 PO 06/26/18 01:00 1 tab BID TERRY Administration Bupropion HCl 150 mg 06/18/18 21:00 06/23/18 09:35 Wellbutrin Sr PO 150 mg BID TERRY Administration Capsaicin 1 applic 06/20/18 16:16 06/21/18 21:56 Trixaicin 0.025% Cream TOP 1 applic QID PRN Administration PAIN Fluticasone Propionate 2 sprays 06/14/18 09:00 06/23/18 09:41 Flonase JAMIN 2 spray DAILY TERRY Administration Folic Acid 1 mg 06/14/18 09:00 06/23/18 09:37 PO 1 mg DAILY TERRY Administration Heparin Sodium (Beef Lung) 30 - 50 unit 06/18/18 16:58 06/22/18 08:11 IVP 90 unit PRN PRN Administration Central Line Protocol (<24 hr) Hydralazine HCl 50 mg 06/18/18 09:00 06/23/18 14:09 Apresoline PO Not Given QID TERRY Hydroxychloroquine Sulfate 400 mg 06/19/18 08:00 06/23/18 07:48 Plaquenil PO 400 mg DAILYWM TERRY Administration Thiamine HCl 250 mg/ Sodium 52.5 mls @ 100 mls/hr 06/23/18 09:00 06/23/18 10:20 Chloride IV 06/28/18 07:00 Infused DAILY TERRY Infusion Isosorbide Mononitrate 60 mg 06/18/18 12:00 06/23/18 09:37 Imdur PO 60 mg DAILY TERRY Administration Lidocaine 1 patch 06/20/18 09:12 06/21/18 09:44 Lidoderm Patch TOP 1 patch DAILY PRN Administration PAIN Lisinopril 40 mg 06/18/18 21:00 06/23/18 09:38 Zestril PO 40 mg BID TERRY Administration Methimazole 10 mg 06/16/18 08:15 06/23/18 07:49 Tapazole PO 10 mg DAILYWM TERRY Administration Metoprolol Succinate 100 mg 06/18/18 21:00 06/23/18 09:38 Toprol Xl PO 100 mg BID TERRY Administration Mineral Oil 1 applic 06/21/18 14:30 06/21/18 15:39 Cavilon TOP 1 applic PRN PRN Administration Skin Care Multi-Ingredient Ointment 1 applic 06/19/18 18:17 06/20/18 10:21 Zinc Oxide TOP 1 applic PRN PRN Administration Skin Care Multivitamins/Minerals 1 tab 06/18/18 17:00 06/23/18 07:48 Theragran M PO 1 tab DAILYWM TERRY Administration Nystatin 1 applic 06/14/18 09:00 06/23/18 09:40 Nystop TOP Not Given BID TERRY Ondansetron HCl 4 mg 06/13/18 13:55 06/18/18 17:22 Zofran Odt TL 4 mg Q6HR PRN Administration Nausea / Vomiting Polyethylene Glycol 17 gm 06/14/18 09:00 06/23/18 09:40 Miralax PO Not Given DAILY TERRY Potassium Chloride 10 meq 06/14/18 09:00 06/23/18 09:39 Micro-K PO 10 meq DAILY TERRY Administration Rivaroxaban 20 mg 06/16/18 18:00 06/22/18 17:14 Xarelto PO 20 mg 1700 TERRY Administration Sodium Chloride 10 ml 06/13/18 13:55 06/22/18 06:35 Normal Saline Flush 0.9% IVP 30 ml PRN PRN Administration NEEDED PER PROVIDER ORDERS - Lab Result Fish Bone Diagrams: 06/19/18 05:00 06/19/18 05:00 - Additional Planning My Orders: My Active Orders 06/23/18 09:00 Thiamine Inj [Vitamin B-1 Inj] 250 mg Sodium Chloride 0.9% [Normal Saline 0.9%] 50 ml IV DAILY Subjective - Subjective Patient Reports: Other (Spouse describes new hematuria.) Nursing Reports: Other (Nurse reports that Whitley was pulled out by patient with the balloon up, 3 days ago. Urine was yellow yesterday, tameka blood today.) Objective Vital Signs: Vital Signs - 24 hr 06/22/18 06/23/18 06/23/18 21:05 05:50 07:30 Temperature 37.4 C 37.4 C 34.7 C L Heart Rate [ 75 70 70 Monitoring electrodes] Respiratory 24 21 18 Rate Blood Pressure 133/74 H 144/85 H 139/107 H [Right Brachial artery] O2 Saturation 95 95 94 06/23/18 14:00 Temperature Heart Rate [ 77 Monitoring electrodes] Respiratory 17 Rate Blood Pressure 103/63 [Right Brachial artery] O2 Saturation 92 Oxygen O2 Source Room air I&O (Last 24 Hrs): Intake and Output Totals x24h 06/21/18 06/22/18 06/23/18 23:59 23:59 23:59 Intake Total 3315 2585 802.5 Output Total 1260 1050 575 Balance 2055 1535 227.5 General: Alert, No acute distress HEENT: Mucous membr. moist/pink, Other (Cheeks flushed) Neck: Supple, No JVD Neuro: Disoriented Cardiovascular: No murmurs Respiratory: No respiratory distress, Breath sounds nml Abdomen: Soft, Other (Obese with pannus) Extremities: No edema - Results Results: Laboratory Results WBC 10.8 x10^3/uL (4.8-10.8) 06/19/18 05:00 RBC 4.60 10^6/uL (4.70-6.10) L 06/19/18 05:00 Hgb 15.4 g/dL (14.0-18.0) 06/19/18 05:00 Hct 46.6 % (42.0-52.0) 06/19/18 05:00 MCV 101.4 fL (80.0-94.0) H 06/19/18 05:00 MCH 33.6 pg (27.0-31.0) H 06/19/18 05:00 MCHC 33.1 g/dL (32.0-36.0) 06/19/18 05:00 RDW 14.3 % (12.0-15.0) 06/19/18 05:00 Plt Count 205 10^3/uL (130-450) 06/19/18 05:00 MPV 8.6 fL (7.4-11.4) 06/19/18 05:00 Neut # (Auto) 7.7 10^3/uL (1.5-6.6) H 06/19/18 05:00 Lymph # (Auto) 1.4 10^3/uL (1.5-3.5) L 06/19/18 05:00 [place] # (Auto) 1.3 10^3/uL (0.0-1.0) H 06/19/18 05:00 Eos # (Auto) 0.3 10^3/uL (0.0-0.7) 06/19/18 05:00 Baso # (Auto) 0.1 10^3/uL (0.0-0.1) 06/19/18 05:00 Absolute Nucleated RBC 0.00 x10^3/uL 06/19/18 05:00 Nucleated RBC % 0.0 /100WBC 06/19/18 05:00 PT 16.3 secs (9.9-12.6) H 06/14/18 10:26 INR 1.5 (0.8-1.2) H 06/14/18 10:26 Sodium 136 mmol/L (135-145) 06/19/18 05:00 Potassium 4.3 mmol/L (3.5-5.0) 06/19/18 05:00 Chloride 102 mmol/L (101-111) 06/19/18 05:00 Carbon Dioxide 23 mmol/L (21-32) 06/19/18 05:00 Anion Gap 11.0 (6-13) 06/19/18 05:00 BUN 11 mg/dL (6-20) 06/19/18 05:00 Creatinine 0.9 mg/dL (0.6-1.2) 06/19/18 05:00 Estimated GFR (MDRD) 82 (>89) L 06/19/18 05:00 Glucose 103 mg/dL (70-100) H 06/19/18 05:00 Lactic Acid 1.2 mmol/L (0.5-2.2) 06/16/18 08:15 Calcium 8.9 mg/dL (8.5-10.3) 06/19/18 05:00 Ionized Calcium NO 06/17/18 04:52 Phosphorus 4.3 mg/dL (2.5-4.6) 06/19/18 05:00 Magnesium 1.7 mg/dL (1.7-2.8) 06/18/18 04:30 Total Bilirubin 1.5 mg/dL (0.2-1.0) H 06/21/18 04:50 Direct Bilirubin 0.4 mg/dL (0.1-0.5) 06/21/18 04:50 AST 28 IU/L (10-42) 06/21/18 04:50 ALT 29 IU/L (10-60) 06/21/18 04:50 Alkaline Phosphatase 47 IU/L (42-121) 06/21/18 04:50 Ammonia 11.3 umol/L (7-35) 06/19/18 14:01 Troponin I < 0.04 ng/mL (<0.49) 06/18/18 04:30 Total Protein 5.8 g/dL (6.7-8.2) L 06/21/18 04:50 Albumin 2.7 g/dL (3.2-5.5) L 06/21/18 04:50 Globulin 3.1 g/dL (2.1-4.2) 06/21/18 04:50 Albumin/Globulin Ratio 1.2 (1.0-2.2) 06/13/18 10:55 Triglycerides 84 mg/dL (-149) 06/14/18 04:40 Cholesterol 150 mg/dL (-199) 06/14/18 04:40 LDL Cholesterol, Calc 92 mg/dL (-129) 06/14/18 04:40 VLDL Cholesterol 17 mg/dL 06/14/18 04:40 HDL Cholesterol 41 mg/dL (60-) L 06/14/18 04:40 LDL/HDL Ratio 2.2 (<3.6) 06/14/18 04:40 Cholesterol/HDL Ratio 3.7 (<5.0) 06/14/18 04:40 Lipase 28 U/L (22-51) 06/13/18 10:55 Plasma Vitamin B1 15 nmol/L (8-30) 06/19/18 18:59 Whole Bld Vitamin B1 187 nmol/L (78-185) H 06/19/18 18:59 Vitamin B12 1124 pg/mL (180-914) H 06/13/18 10:00 TSH < 0.08 uIU/mL (0.34-5.60) L 06/13/18 10:00 Free T4 3.03 ng/dL (0.58-1.64) H 06/13/18 10:00 Free T3 pg/mL 4.81 pg/mL (2.5-3.9) H 06/13/18 10:00 Plas Tot Catecholamine Cancelled 06/16/18 05:10 Plasma Dopamine Cancelled 06/16/18 05:10 Plasma Epinephrine Cancelled 06/16/18 05:10 Plasma Norepinephrine Cancelled 06/16/18 05:10 Urine Color YELLOW 06/19/18 14:11 Urine Clarity CLEAR (CLEAR) 06/19/18 14:11 Urine pH 6.0 PH (5.0-7.5) 06/19/18 14:11 Ur Specific [place] 1.010 (1.002-1.030) 06/19/18 14:11 Urine Protein NEGATIVE mg/dL (NEGATIVE) 06/19/18 14:11 Urine Glucose (UA) NEGATIVE mg/dL (NEGATIVE) 06/19/18 14:11 Urine Ketones NEGATIVE mg/dL (NEGATIVE) 06/19/18 14:11 Urine Occult Blood LARGE (NEGATIVE) H 06/19/18 14:11 Urine Nitrite NEGATIVE (NEGATIVE) 06/19/18 14:11 Urine Bilirubin NEGATIVE (NEGATIVE) 06/19/18 14:11 Urine Urobilinogen 4 E.U./dL (NORMAL) H 06/19/18 14:11 Ur Leukocyte Esterase TRACE (NEGATIVE) H 06/19/18 14:11 Urine RBC 11-25 /HPF (0-5) H 06/19/18 14:11 Urine WBC 6-10 /HPF (0-3) H 06/19/18 14:11 Ur Squamous Epith Cells NONE SEEN (<= Few) 06/19/18 14:11 Urine Bacteria Few /HPF (None Seen) 06/19/18 14:11 Ur Microscopic Review INDICATED 06/13/18 12:00 Urine Culture Comments INDICATED 06/19/18 14:11 Ur Random Dopamine 80 (40-390) 06/16/18 05:10 Ur Random Epinephrine 25 (2-16) H 06/16/18 05:10 U Random Norepinephrine 99 (7-65) H 06/16/18 05:10 U Epinephrine & Norepi 124 (9-74) H 06/16/18 05:10 Urine Creatinine 30 mg/dL (20-320) 06/16/18 05:10 CSF Color COLORLESS (COLORLESS) 06/16/18 17:20 CSF Clarity CLEAR (CLEAR) 06/16/18 17:20 Xanthrochromic ABSENT (ABSENT) 06/16/18 17:20 CSF WBC 0 /mm^3 (0-5) 06/16/18 17:20 CSF RBC 0 /mm^3 (0-1) 06/16/18 17:20 CSF Cell Count Tube # CSF TUBE# 3 06/16/18 17:20 CSF Glucose 69 mg/dL (45-70) 06/16/18 17:20 CSF Total Protein 62 mg/dL (15-60) H 06/16/18 17:20 Nasal Screen MRSA (PCR) NEGATIVE (NEGATIVE) 06/19/18 Unknown Last Dose Date K 06/17/18 04:52 Last Dose Time [facility] 06/17/18 04:52 Digoxin 1.2 ng/mL 06/17/18 04:52 Urine Opiates Screen POSITIVE (NEGATIVE) H 06/13/18 14:38 Ur Oxycodone Screen NEGATIVE (NEGATIVE) 06/13/18 14:38 Urine Methadone Screen NEGATIVE (NEGATIVE) 06/13/18 14:38 Ur Propoxyphene Screen NEGATIVE (NEGATIVE) 06/13/18 14:38 Ur Barbiturates Screen NEGATIVE (NEGATIVE) 06/13/18 14:38 Ur Tricyclics Screen NEGATIVE (NEGATIVE) 06/13/18 14:38 Ur Phencyclidine Scrn NEGATIVE (NEGATIVE) 06/13/18 14:38 Ur Amphetamine Screen NEGATIVE (NEGATIVE) 06/13/18 14:38 U Methamphetamines Scrn NEGATIVE (NEGATIVE) 06/13/18 14:38 U Benzodiazepines Scrn NEGATIVE (NEGATIVE) 06/13/18 14:38 Urine Cocaine Screen NEGATIVE (NEGATIVE) 06/13/18 14:38 U Cannabinoids Screen POSITIVE (NEGATIVE) H 06/13/18 14:38 Thyroglobulin Antibody <1 IU/mL (< or = 1) 06/14/18 08:15 Thyroid Peroxidase Ab <1 IU/mL (<9) 06/14/18 08:15 Hepatitis A IgM Ab NON-REACTIVE (NON-REACTIVE) 06/13/18 14:06 Hep Bs Antigen NON-REACTIVE (NON-REACTIVE) 06/13/18 14:06 Hep B Core IgM Ab NON-REACTIVE (NON-REACTIVE) 06/13/18 14:06 Hepatitis C Antibody NON-REACTIVE (NON-REACTIVE) 06/13/18 14:06 Hep C Ab Signal/Cutoff 0.00 (<1.00) 06/13/18 14:06 HSV I IgG Ab <0.90 index 06/13/18 14:06 HSV II IgG 6.84 index H 06/13/18 14:06 HIV 1&2 Ag/Ab, 4th Gen NON-REACTIVE (NON-REACTIVE) 06/13/18 14:06 Influenza A (Rapid) Negative (Negative) 06/14/18 12:14 Influenza B (Rapid) Negative (Negative) 06/14/18 12:14 Ref Lab Test Result REPORT 06/16/18 17:20
--- NOTE | 2018-06-23 20:44 | CT Report ---
Reason: Intermittent hematuria eval for stone or mass Procedure Date: 06/23/2018 Accession Number: [id number] / [id number] Procedure: CT - Abdomen/Pelvis WO CPT Code: FULL RESULT: EXAM: CT ABDOMEN AND PELVIS (CT KUB) WITHOUT CONTRAST. EXAM DATE: 06/23/2018 05:31 PM. CLINICAL HISTORY: Intermittent hematuria evaluate for stone or mass. COMPARISONS: None. TECHNIQUE: Routine axial helical CT imaging was performed through the abdomen and pelvis without IV contrast. Reconstructions: Coronal and sagittal. In accordance with CT protocol optimization, one or more of the following dose reduction techniques were utilized for this exam: automated exposure control, adjustment of mA and/or KV based on patient size, or use of iterative reconstructive technique. FINDINGS: Lung Bases: Unremarkable. Right Kidney/Ureter: No stones, hydronephrosis, or hydroureter. No perinephric fat stranding. Left Kidney/Ureter: No stones, hydronephrosis or hydroureter. There is a 15.3 x 13.7 cm simple appearing cyst at the lower pole of the left kidney. Other Solid Organs: There are several subcentimeter left hepatic lobe hypodensities which are too small to characterize however most likely represent cyst. The unenhanced liver is otherwise unremarkable. The gallbladder, pancreas, spleen and adrenal glands are otherwise unremarkable. Gallbladder/Bile Ducts: Unremarkable. Peritoneal Cavity: No free fluid, free air or tameka adenopathy. Bowel is grossly unremarkable. Pelvic Organs: No bladder stones or wall thickening. Noncontrast images of the visualized pelvic organs are unremarkable. Vasculature: Unremarkable. Other: Left hip replacement noted. No acute bony abnormality. IMPRESSION: 1. No urinary tract stones or obstruction. 2. Left renal 15.3 cm cyst. RADIA
[2018-06-24] MEDS: buPROPion SR 150 MG TABLET PO SCH ×2 (08:50→21:31)
[2018-06-24] MEDS: MULTIVITAMIN W/MINERALS TABLET PO SCH (08:50)
[2018-06-24] MEDS: methIMAzole 5 MG TABLET PO SCH (08:50)
[2018-06-24] MEDS: AMOX/CLAV 875 MG/125 MG TABLET PO SCH ×2 (08:50→21:35)
[2018-06-24] MEDS: POTASSIUM CHLORIDE 10 MEQ CAPSULE PO SCH (08:50)
[2018-06-24] MEDS: LISINOPRIL 20 MG TABLET PO SCH ×2 (08:50→21:34)
[2018-06-24] MEDS: hydrALAZINE 25 MG TABLET PO SCH ×3 (08:50→21:32)
[2018-06-24] MEDS: HYDROXYCHLOROQUINE 200 MG TABLET PO SCH (08:51)
[2018-06-24] MEDS: ISOSORBIDE MONONITRATE ER 30 MG TABLET PO SCH (08:51)
[2018-06-24] MEDS: HYDROcod/ACETAM 7.5 MG/325 MG TABLET PO PRN ×2 (08:51→17:09)
[2018-06-24] MEDS: THIAMINE INJ 250 MG in SODIUM CHLORIDE 0.9% 50 ML IV SCH (08:51)
[2018-06-24] MEDS: FLUTICASONE NASAL SPRAY NAS SCH (08:52)
[2018-06-24] MEDS: FOLIC ACID 1 MG TABLET PO SCH (08:52)
[2018-06-24] MEDS: NYSTATIN POWDER 15 GM TOP SCH ×2 (08:59→21:39)
[2018-06-24] MEDS: POLYETHYLENE GLYCOL 3350 17 GM PACKET PO SCH (08:59)
[2018-06-24 09:29] LABS: BASOPHILS # (AUTO) 0.1 10^3/uL (0.0-0.1); BASOPHILS % (AUTO) 1.5 %; EOSINOPHILS # (AUTO) 0.7 10^3/uL (0.0-0.7); EOSINOPHILS % (AUTO) 7.8 %; HGB - HEMOGLOBIN 15.8 g/dL (14.0-18.0); LYMPHOCYTES # (AUTO) 1.9 10^3/uL (1.5-3.5); LYMPHOCYTES % (AUTO) 20.4 %; MEAN CORPUSCULAR HEMOGLOBIN 33.4 pg (27.0-31.0); MEAN CORPUSCULAR VOLUME 101.1 fL (80.0-94.0); MEAN PLATELET VOLUME 8.1 fL (7.4-11.4); MONOCYTES # (AUTO) 0.6 10^3/uL (0.0-1.0); MONOCYTES % (AUTO) 6.5 %; NEUTROPHILS % (AUTO) 63.8 %; PLT - PLATELET COUNT 407 10^3/uL (130-450); RED BLOOD COUNT 4.75 10^6/uL (4.70-6.10); RED CELL DISTRIBUTION WIDTH 14.6 % (12.0-15.0); WHITE BLOOD COUNT 9.3 x10^3/uL (4.8-10.8)
[2018-06-24 09:35] LABS: CALCIUM 8.9 mg/dL (8.5-10.3); CREATININE 1.2 mg/dL (0.6-1.2)
[2018-06-24] MEDS ORDERED: METOPROLOL SUCCINATE 50 MG TABLET PO SCH ×2 (11:00→18:00)
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
[2018-06-24] MEDS: TAMSULOSIN 0.4 MG CAPSULE PO SCH (17:08)
[2018-06-24] MEDS: METOPROLOL SUCCINATE 50 MG TABLET PO SCH (21:35)
[2018-06-24] MEDS: LIDOCAINE PATCH 5% TOP PRN (23:46)
[2018-06-24] MEDS: MIN OIL/DIMETHICON/COCONUT OIL 92 GM TUBE TOP PRN (23:58)
[2018-06-25] MEDS ORDERED: SODIUM CHLORIDE FLUSH 0.9% 10 ML SYRINGE IVP PRN (04:31)
[2018-06-25] MEDS: SODIUM CHLORIDE FLUSH 0.9% 10 ML SYRINGE IVP PRN (05:04)
[2018-06-25 05:41] LABS: BASOPHILS # (AUTO) 0.1 10^3/uL (0.0-0.1); BASOPHILS % (AUTO) 1.1 %; EOSINOPHILS # (AUTO) 0.8 10^3/uL (0.0-0.7); EOSINOPHILS % (AUTO) 7.7 %; HGB - HEMOGLOBIN 14.3 g/dL (14.0-18.0); LYMPHOCYTES # (AUTO) 2.4 10^3/uL (1.5-3.5); MEAN CORPUSCULAR HEMOGLOBIN 33.4 pg (27.0-31.0); MEAN CORPUSCULAR VOLUME 101.3 fL (80.0-94.0); MEAN PLATELET VOLUME 8.1 fL (7.4-11.4); MONOCYTES # (AUTO) 0.9 10^3/uL (0.0-1.0); MONOCYTES % (AUTO) 8.4 %; NEUTROPHILS # (AUTO) 6.1 10^3/uL (1.5-6.6); NEUTROPHILS % (AUTO) 59.8 %; PLT - PLATELET COUNT 385 10^3/uL (130-450); RED BLOOD COUNT 4.29 10^6/uL (4.70-6.10); RED CELL DISTRIBUTION WIDTH 14.9 % (12.0-15.0); WHITE BLOOD COUNT 10.2 x10^3/uL (4.8-10.8)
[2018-06-25 05:47] LABS: CALCIUM 8.9 mg/dL (8.5-10.3); CREATININE 1.4 mg/dL (0.6-1.2)
[2018-06-25] MEDS ORDERED: LISINOPRIL 20 MG TABLET PO SCH (09:00)
[2018-06-25] MEDS: LISINOPRIL 20 MG TABLET PO SCH (09:24)
[2018-06-25] MEDS: hydrALAZINE 25 MG TABLET PO SCH (09:25)
[2018-06-25] MEDS: METOPROLOL SUCCINATE 50 MG TABLET PO SCH (09:25)
[2018-06-25] MEDS: HYDROXYCHLOROQUINE 200 MG TABLET PO SCH (09:25)
[2018-06-25] MEDS: POTASSIUM CHLORIDE 10 MEQ CAPSULE PO SCH (09:26)
[2018-06-25] MEDS: FOLIC ACID 1 MG TABLET PO SCH (09:26)
[2018-06-25] MEDS: methIMAzole 5 MG TABLET PO SCH (09:26)
[2018-06-25] MEDS: buPROPion SR 150 MG TABLET PO SCH (09:26)
[2018-06-25] MEDS: AMOX/CLAV 875 MG/125 MG TABLET PO SCH (09:27)
[2018-06-25] MEDS: FLUTICASONE NASAL SPRAY NAS SCH (09:27)
[2018-06-25] MEDS: TAMSULOSIN 0.4 MG CAPSULE PO SCH (09:27)
[2018-06-25] MEDS: NYSTATIN POWDER 15 GM TOP SCH (09:27)
[2018-06-25] MEDS: MULTIVITAMIN W/MINERALS TABLET PO SCH (09:27)
[2018-06-25] MEDS: LIDOCAINE PATCH 5% TOP PRN (09:33)
[2018-06-25] MEDS: POLYETHYLENE GLYCOL 3350 17 GM PACKET PO SCH (09:33)
[2018-06-25] MEDS: MIN OIL/DIMETHICON/COCONUT OIL 92 GM TUBE TOP PRN (10:00)
[2018-06-25] MEDS: CAPSAICIN 0.025% CREAM 60 GM TUBE TOP PRN (10:00)
[2018-06-25] MEDS: THIAMINE INJ 250 MG in SODIUM CHLORIDE 0.9% 50 ML IV SCH (10:15)
--- NOTE | 2018-06-25 11:42 | Discharge Plan ---
Discharge Plan Disposition: 03 [facility] DC/Xfer Condition: Fair Prescriptions: Ipratropium/Albuterol [Duoneb] 3 ml INH Q6H PRN #1 neb PRN Reason: Wheezing Thiamine HCl [Thiamine HCl (VIAL)] 100 mg IM DAILY #30 ml Diet: Regular Activity Restrictions: Activity as Tolerated Shower Restrictions: No Driving Restrictions: No Weight Bearing: Full Weight Additional Instructions or Follow Up instructions: This gentleman was admitted with a history of several months duration of falling, worsening balance, increasing confusion. He had been seen by [facility] for this with no clear diagnosis made. He then went to [place] for vacation. While in [place] got worse. The minute they landed at the airport, and his partner brought him to our hospital. His diagnosis was that of encephalopathy of unknown cause. He received a CT of the head, MRI of the head, lumbar puncture, review of his medication list, evaluated for infection. He was found to have probable Wernicke's encephalopathy. He has responded to IV thiamine. He is to continue IV M thiamine until he is eating a completely normal diet. He will need rehabilitation for his ataxia, weakness, and need occupational therapy. No Smoking: If you smoke, Please STOP! Call for help. Follow-up with: Jaime Kelley MD [Primary Care Provider] -
--- NOTE | 2018-06-25 12:37 | Discharge Plan ---
"Discharge Plan for SNF / [facility] - Discharge Plan And Transition Orders Disposition: 03 SNF DC/Xfer Condition: Fair Allergies and Adverse Reactions: Allergies Allergy/AdvReac Type Severity Reaction Status Date / Time No Known Drug Allergies Allergy Verified 06/13/18 10:01 - SNF / CARE HOME Transition Orders Admit to (Facility): [facility] Discharge Diagnosis: 1. Wernicke's encephalopathy 2. Hypertensive urgency resolved 3. Iatrogenic hypotension from over treatment of #2 4. Uncomplicated alcohol abuse with 2 or greater drinks a day 5. Psoriatic arthritis 6. Traumatic hematuria 7. Benign prostatic hypertrophy with urinary retention 8. Stage I, decubitus ulcer of coccyx region 9. Mild aortic stenosis on echocardiogram 10. Hyperthyroidism determined by TFTs 11. Lacunar cerebrovascular accidents on MRI, old 12. Chronic back pain 13. Mild pulmonary hypertension 14. Chronic atrial fibrillation 15. History of falls and rib fractures, prior to admission 16. Probable dementia Medicare Certification Statement: I certify [facility] medically necessary on a continuing basis for any of the conditions for which she/he is receiving care during hospitalization. Notify PCP of admission and forward orders to primary provider for signature. Weight on admission and: Weekly Call PCP immediately if weight increases by: 2.2 kg Other Notification Orders: Call PCP immediately if patient develops dyspnea, chest pain/tightness or edema. House Bowel Program: Yes Additional Bowel Program Orders: If no BM after 2 days, nurse may give M.O.M. 30ml PO PRN and/or ducolax Supp 1 NV and/or YESENIA 250mg P.O., and/or senna 1-2 tabs PO. On day 3 nurse may give repeat above order until residents constipation is resolved. Annual Influenza Vaccine (between Oct 13 and May 12): Yes Two-step PPD per [facility] [phone] or approved exception documents: Yes Treatments & Other Orders: Frequent turning, frequent repositioning in a patient who is at risk for decubitus ulcer Oxygen Orders: Oxygen by nasal cannula as needed, to keep O2 sats greater than 92% Medication Orders: PLEASE REFER TO THE DISCHARGE MEDICATION LIST. Insulin Orders?: No - Medications New Prescriptions: Ipratropium/Albuterol [Duoneb] 3 ml INH Q6H PRN #1 neb PRN Reason: Wheezing Thiamine HCl [Thiamine HCl (VIAL)] 100 mg IM DAILY #30 ml - Diet Type: Geriatric Texture: Regular Liquids: Thin May have monthly special meal: Yes - Therapies | Activity Therapy: Evaluation | Treat if indicated: Speech, PT, OT Rehabilitation Potential: Return to independent living Activity: Activity as Tolerated Weight Bearing: Full Weight Assistance Devices: Walker Additional Instructions: This gentleman was admitted with a history of several months duration of falling, worsening balance, increasing confusion. He had been seen by [facility] for this with no clear diagnosis made. He then went to [place] for vacation. While in [place] got worse. The minute they landed at the airport, and his partner brought him to our hospital. His diagnosis was that of encephalopathy of unknown cause. He received a CT of the head, MRI of the head, lumbar puncture, review of his medication list, evaluated for infection. He was found to have probable Wernicke's encephalopathy. He has responded to IV thiamine. He is to continue IV M thiamine until he is eating a completely kanchan l diet. He will need rehabilitation for his ataxia, weakness, and need occupational therapy. Follow Up: Please see primary care provider Jaime Kelley upon discharge. He will need to be referred to urology for hematuria. However, hematuria is felt to be traumatic induced from Whitley catheter."
[2018-06-25 14:11] VITALS: BP 116/80
[2018-06-25] MEDS: HYDROcod/ACETAM 7.5 MG/325 MG TABLET PO PRN (14:59)
--- NOTE | 2018-06-25 19:45 | DISCHARGE SUMMARY ---
"Discharge Summary Admit Date: 06/13/18 Discharge Date: 06/25/18 Discharging Provider: Marjorie Rey Primary Care Provider: Jaime Warren, Code Status: Do Not Attempt Resuscitation Condition at Discharge: Fair Discharge Disposition: SNF DC/Xfer Discharge Facility Name: [facility] - DIAGNOSES Discharge Diagnoses with Status of Each Condition: 1. Wernicke-Korsakoff syndrome 2. Hypotension, Iatrogenic 3. Chronic alcohol abuse 4. Hematuria, Traumatic after [place] 5. Decubitus ulcer of coccygeal reason 6. Chronic atrial fibrillation 7. Multiple rib fracture history, present on admission 8. Hyperthyroidism determined by thyroid function studies 9. History of lacunar cerebral vascular accident 10. Chronic back pain 11. Aortic stenosis, mild 12. Pulmonary hypertension 13. Psoriatic arthritis 14. Hypertensive urgency - HPI History of Present Illness: HPI Comment/Other: 78-year-old male with history of hypertension and a atrial fibrillation who is on Xarelto has recently returned from [place] about a week ago and he has been unpacking and working hard until about 3 days ago when he slowed down and stopped doing as much and yesterday he spent pretty much the whole day napping in his easy chair. His was gone yesterday getting an epidural steroid injection and when he returned home he found the patient to be less responsive than usual he thought the patient may be exhausted and when he slept well today last night and was still confused this morning he is brought him here to the emergency department for evaluation. The patient has had some urinary symptoms he has had a headache and he is on Xarelto and he has not been taking his medications which include metoprolol XL and enalapril. Patient's initial blood pressure showed a systolic of 202/139 diastolic slightly RVR A. fib at 104 bpm was given IV and p.o. BP meds which now has come down to 147/103 nontachypneic non-hypoxemic with a controlled rate atrial fibrillation of 94 bpm. Patient's initial hemoglobin was 18.2 with a WBC of 10.5, platelets 164, MCV 102.2 (macrocytosis). Electrolytes were normal with normal renal function creatinine of 0.7. Lactic acid 1.1, T bilirubin 2.0 with normal glucose. TSH <0.08, UDS +opiates and cannibinoids. Initial CT of the head showed diffuse chronic microangiopathic changes. Patient to be admitted for further evaluation management treatment. - CONSULTS | PROCEDURES Consultations: [facility], [facility] Procedures: 1. Head CT. Generalized age-related cortical atrophic changes without evidence of acute intracranial abnormality. 2. Brain MRI without contrast. Somewhat limited by motion artifact. No acute intracranial abnormality. Age-related atrophy. Moderate white matter FLAIR seen. Small cystic foci in the white matter of the cerebellar hemispheres bilaterally and inferiorly in the right cerebellum consistent with old lacunar i nfarcts. 3. Soft tissue ultrasound of neck for low TSH shows partially cystic 9 mm right thyroid lobe nodule, several 1 to 2 mm left thyroid lobe cyst. 4. Head and neck CT angiogram poor contrast opacification during arterial phrase. Common carotid on right poorly visualized. Mid and distal common carotid appear patent. Right carotid bulb with mild to moderate atheromatous plaque. Cavernous internal carotid segment with atherosclerotic plaque. There are moderate bilateral areas of white matter hypoattenuation similar to MRI of brain. Old chronic lacunar infarct left frontal nava radiata and right parietal nava radiata. There is poor contrast opacification of numerous arteries but they did not appear blocked. The left carotid system met stenosis at the bifurcation of less than 50%. 5. 2 chest x-rays are negative for cardiopulmonary disease with the right IJ in place. 6. Second MRI done for with and without contrast. Old lacunar infarcts again. No other acute intracranial pathology identified. 7. Abdomen pelvis CT left hepatic lobe with hypodensities that are too small to characterize. Unenhanced liver otherwise unremarkable. Left renal cyst that is 15 cm big. 8. Lumbar puncture. CSF culture is negative. 9. Blood cultures negative after 3 days 10. Urine culture with greater than 100,000 colonies of polymicrobial growth 11. Echocardiogram with ejection fraction 55 to 60%. Right ventricle normal. Mild aortic stenosis with peak mean pressure gradient of 35 mmHg / 21 mmHg. Aortic valve area by continuity equation 1.51 cm. RVSP at rest is 40 mmHg with mildly abnormal right heart pressures. The ascending aorta is dilated at 4.1 cm. 12. Hepatitis serology negative, HSV IgG high at 6.84, HIV negative, influenza a and B negative. Thyroglobulin antibody and thyroperoxidase antibody negative. - HOSPITAL COURSE Hospital Course: This gentleman was admitted as an encephalopathic patient that initially was rep ortedly an acute process. But as we spoke to his partner and got more more history as time went on, he has been with altered mental status, gradually failing with cerebellar ataxia for months if not years. He is already been seen by neurology with no definitive diagnosis being given. We worked him up for herpes infection, HIV infection. We worked him up for strokes, aneurysms. We treated him for hypertensive urgency because his blood pressure was quite elevated at times. On admission he had a decubitus ulcer because of being bedbound. He also had falling with multiple rib fracture history. While we found him to be hyperthyroid by thyroid function studies, and having old lacunar cerebrovascular accidents, none of this explained his encephalopathic presents presentation. He had a history of psoriatic arthritis on medication but we did not feel that that was pertinent. He did develop some hematuria that was traumatic after [place] but that resolved. We also found out that he was drinking alcohol. It is been a bone of contention between he and his partner. He was described as drinking 2 shots and one drink. 2 of those at a time sometimes 3 which made it out to 6 drinks a day. In speaking to [facility] telemetry neurology for second opinion we decided to start treating him for Warnicke Korsakoff. We started high-dose thiamine. With that the patient slowly started to respond. Became less and less lethargic, more more responsive and normal in his speech pattern. But even after treatment, several days, he still had profound cognitive deficits, poor memory, and was seen by physical therapy. He had improving mobility with physical therapy. Able to lift his legs and move them for transfer out of the bed but required constant cueing to remind him to do that. Just a simple transferring from a sitting position to standing position required quite a bit of prompting on the part of physical therapy. He did follow verbal cues quite nicely. Frontwheel walker was provided and he would lean forward but standing would hurt his feet. Physical therapy felt that he would benefit from continued PT at a SNF after hospital stay with hopes toward an independent, safe functional activity at home. The patient was discharged in stable condition with a temperature of 37.3 pulse of 88 blood pressure 116/80 respirations 14 and 97% on room air. He was pleasant, cooperative, but with definite met memory loss. Most the time he could not remember where he was, much less why he was here. But he really was pleasant and cooperative. Lungs were clear to auscultation and percussion. PMI was normally placed with a regular rate and rhythm. He ambulated with a walker and a gait belt. He was incontinent of urine and had frequency. Would require a brief or a pad at times. His scrotum was slightly erythematous. He did have some mild nonpitting edema around his ankles. Greater than 30 minutes was spent in coordinating discharge. - ALLERGIES Allergies/Adverse Reactions: Allergies Allergy/AdvReac Type Severity Reaction Status Date / Time No Known Drug Allergies Allergy Verified 06/13/18 10:01 - MEDICATIONS Home Medications: Ambulatory Orders Medication Instructions Recorded Confirmed Allopurinol 300 mg PO DAILY 06/13/18 06/13/18 Beclomethasone 80 Mcg [Qvar 80] 2 - 4 puffs INH BID PRN 06/13/18 06/13/18 Celecoxib 200 mg PO DAILY 06/13/18 06/13/18 Felodipine [Felodipine ER] 10 mg PO DAILY 06/13/18 06/13/18 Methotrexate 20 mg PO Q7D 06/13/18 06/13/18 Metoprolol Succinate [Toprol Xl] 100 mg PO DAILY 06/13/18 06/13/18 Rivaroxaban [Xarelto] 20 mg PO DAILY 06/13/18 06/13/18 Testosterone Cypionate 200 mg IM ONCE 06/13/18 06/13/18 [Depo-Testosterone] predniSONE [Prednisone] 5 mg PO DAILY 06/13/18 06/13/18 Hydrocodone/Acetaminophen 1 each PO BID PRN MDD 2 tabs 06/20/18 06/20/18 [Hydrocodone-Acetamin 7.5-325] Acetaminophen [Tylenol] 650 mg PO Q4HR PRN tablet 06/25/18 Enalapril Maleate [Vasotec] 20 mg PO BID #0 06/25/18 06/13/18 Fluticasone [Flonase] 2 sprays JAMIN DAILY #0 06/25/18 06/13/18 Folic Acid 1 mg PO DAILY #0 06/25/18 06/13/18 Hydroxychloroquine [Plaquenil] 400 mg PO DAILY #0 06/25/18 06/13/18 Ipratropium/Albuterol [Duoneb] 3 ml INH Q6H PRN #1 neb 06/25/18 Lidocaine Patch 5% [Lidoderm Patch] 1 patch TOP DAILY PRN patch 06/25/18 Metoprolol Succinate [Toprol Xl] 50 mg PO BID tablet 06/25/18 Multivitamin W/Minerals [Theragran 1 tab PO DAILYWM tablet 06/25/18 M] Nystatin [Nystop] 1 applic TOP BID bottle 06/25/18 Potassium Chloride 10 meq PO DAILY #0 06/25/18 06/13/18 Tamsulosin [Flomax] 0.4 mg PO DAILY capsule 06/25/18 Thiamine HCl [Thiamine HCl (VIAL)] 100 mg IM DAILY #30 ml 06/25/18 buPROPion [Wellbutrin Sr] 150 mg PO BID #0 06/25/18 06/13/18 hydrALAZINE [Apresoline] 25 mg PO BID tablet 06/25/18 methIMAzole [Tapazole] 10 mg PO DAILYWM tablet 06/25/18 - LABS Result Diagrams: 06/25/18 04:55 06/25/18 04:55 - TIME SPENT Time Spent in Discharge (Minutes): 40"
[2018-06-26 18:51] LABS: DOPAMINE 89 pg/mL; EPINEPHRINE 144 pg/mL; NOREPINEPHRINE 2393 pg/mL
== END 2018-06-25 15:06 | DRG 641 ==
LOC: EDUNIT# → ED 09:51 → MS2 13:55 → OBSVTOIN 06-14 10:08 → ICU 06-15 17:25 → MS3 06-24 11:55
PROVIDERS: ADMIT Family Medicine; ATTEND Specialist
DX: I67.4 Hypertensive encephalopathy (principal); E51.2 Wernicke's encephalopathy; G81.94 Hemiplegia, unspecified affecting left nondominant side; T83.511A Infection and inflammatory reaction due to indwelling urethral catheter, initial encounter; N39.0 Urinary tract infection, site not specified; F10.239 Alcohol dependence with withdrawal, unspecified; T44.7X6A Underdosing of beta-adrenoreceptor antagonists, initial encounter; T46.4X6A Underdosing of angiotensin-converting-enzyme inhibitors, initial encounter; F10.26 Alcohol dependence with alcohol-induced persisting amnestic disorder; I16.0 Hypertensive urgency; R40.2412 Glasgow coma scale score 13-15, at arrival to emergency department; B95.2 Enterococcus as the cause of diseases classified elsewhere; I48.2 Chronic atrial fibrillation; K59.00 Constipation, unspecified; E05.90 Thyrotoxicosis, unspecified without thyrotoxic crisis or storm; L89.151 Pressure ulcer of sacral region, stage 1; I35.0 Nonrheumatic aortic (valve) stenosis; R31.9 Hematuria, unspecified; I27.20 Pulmonary hypertension, unspecified; Y84.6 Urinary catheterization as the cause of abnormal reaction of the patient, or of later complication, without mention of misadventure at the time of the procedure; L40.50 Arthropathic psoriasis, unspecified; G89.29 Other chronic pain; M54.9 Dorsalgia, unspecified; N40.1 Benign prostatic hyperplasia with lower urinary tract symptoms; R33.8 Other retention of urine; R35.0 Frequency of micturition; R32 Unspecified urinary incontinence; E86.0 Dehydration; N28.9 Disorder of kidney and ureter, unspecified; I95.2 Hypotension due to drugs; T44.7X5A Adverse effect of beta-adrenoreceptor antagonists, initial encounter; T46.4X5A Adverse effect of angiotensin-converting-enzyme inhibitors, initial encounter; T46.3X5A Adverse effect of coronary vasodilators, initial encounter; S22.42XD Multiple fractures of ribs, left side, subsequent encounter for fracture with routine healing; G47.00 Insomnia, unspecified; Y73.1 Therapeutic (nonsurgical) and rehabilitative gastroenterology and urology devices associated with adverse incidents; Y92.230 Patient room in hospital as the place of occurrence of the external cause; Z91.81 History of falling; Z79.01 Long term (current) use of anticoagulants; Z79.891 Long term (current) use of opiate analgesic; Z79.51 Long term (current) use of inhaled steroids; Z79.899 Other long term (current) drug therapy; Z86.73 Personal history of transient ischemic attack (TIA), and cerebral infarction without residual deficits; Z72.89 Other problems related to lifestyle; Z86.19 Personal history of other infectious and parasitic diseases
CPT/HCPCS: 36415; 70450; 70496; 70498; 70551; 70553; 71045; 74176; 76536; 80048; 80053; 80061; 80069; 80074; 80076; 80162; 81001; 81599; 82140; 82384; 82607; 82945; 83605; 83690; 83735; 84157; 84425; 84439; 84443; 84481; 84484; 85025; 85610; 86376; 86695; 86696; 86800; 87040; 87070; 87086; 87150; 87205; 87275; 87276; 89051; 93005; 93306; 96361; 96374; 97116; 97161; 97164; 97530; 99283; 99284; A6250; A9270; A9585; G0378; G0475; J0133; J0282; J2060; J3411; J7040; J7512; Q0162; Q9967; 62270; 80306; 81003; 83721; 87389; 96360

== ENCOUNTER 2019-05-09 21:31 | Outpatient (CLI) | payer MEDICARE | END 2019-05-09 23:59 | disposition critical access hospital (66) | LOC: EMS 21:31 | PROVIDERS: ATTEND Surgery | DX: R55 Syncope and collapse (principal); R41.82 Altered mental status, unspecified | CPT/HCPCS: A0425; A0427 ==

== ENCOUNTER 2019-05-09 22:01 | Emergency (ER) | payer MEDICARE ==
--- NOTE | 2019-05-09 22:08 | ED Physician Documentation ---
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 He says he and then took a break from playing cards, and patient stood up and subsequently became lightheaded and had generalized weakness, felt like he was going to pass out. He sat back down and thus did not fall. He says his describes that patient was "out of it" (per patient) but did not completely lose consciousness. EMS found patient to have SBP 70s. EMS administered IV fluids en route and this resulted in improvement in blood pressure to normotensive readings which correlated with resolution of his symptoms. He arrives asymptom at Review of Systems Constitutional: denies: Fever, Chills, Sweats Eyes: reports: Reviewed and negative Cardiac: reports: Reviewed and negative Respiratory: reports: Reviewed and negative GI: reports: Reviewed and negative : denies: Incontinent Musculoskeletal: reports: Reviewed and negative Neurologic: reports: Generalized weakness (resolved), Difficulty speaking, Near syncope. denies: Focal weakness, Numbness, Syncope, Seizure, Headache, LOC PD PAST MEDICAL HISTORY - Past Medical History Cardiovascular: Hypertension, Atrial fibrillation Musculoskeletal: Osteoarthritis - Past Surgical History Ortho: Spine surgery, Other - Present Medications Home Medications: Ambulatory Orders Medication Instructions Recorded Confirmed Beclomethasone 80 Mcg [Qvar 80] 2 - 4 puffs INH BID PRN 06/13/18 06/13/18 Celecoxib 200 mg PO DAILY 06/13/18 06/13/18 Felodipine [Felodipine ER] 10 mg PO DAILY 06/13/18 06/13/18 Methotrexate 20 mg PO Q7D 06/13/18 06/13/18 Metoprolol Succinate [Toprol Xl] 100 mg PO DAILY 06/13/18 06/13/18 Rivaroxaban [Xarelto] 20 mg PO DAILY 06/13/18 06/13/18 Testosterone Cypionate 200 mg IM ONCE 06/13/18 06/13/18 [Depo-Testosterone] allopurinoL [Allopurinol] 300 mg PO DAILY 06/13/18 06/13/18 predniSONE [Prednisone] 5 mg PO DAILY 06/13/18 06/13/18 Hydrocodone/Acetaminophen 1 each PO BID PRN MDD 2 tabs 06/20/18 06/20/18 [Hydrocodone-Acetamin 7.5-325] Acetaminophen [Tylenol] 650 mg PO Q4HR PRN tablet 06/25/18 Enalapril Maleate [Vasotec] 20 mg PO BID #0 06/25/18 06/13/18 Fluticasone [Flonase] 2 sprays JAMIN DAILY #0 06/25/18 06/13/18 Folic Acid 1 mg PO DAILY #0 06/25/18 06/13/18 Hydroxychloroquine [Plaquenil] 400 mg PO DAILY #0 06/25/18 06/13/18 Ipratropium/Albuterol [Duoneb] 3 ml INH Q6H PRN #1 neb 06/25/18 Lidocaine Patch 5% [Lidoderm Patch] 1 patch TOP DAILY PRN patch 06/25/18 Metoprolol Succinate [Toprol Xl] 50 mg PO BID tablet 06/25/18 Multivitamin W/Minerals [Theragran 1 tab PO DAILYWM tablet 06/25/18 M] Nystatin [Nystop] 1 applic TOP BID bottle 06/25/18 Potassium Chloride 10 meq PO DAILY #0 06/25/18 06/13/18 Tamsulosin [Flomax] 0.4 mg PO DAILY capsule 06/25/18 Thiamine HCl [Thiamine HCl (VIAL)] 100 mg IM DAILY #30 ml 06/25/18 buPROPion [Wellbutrin Sr] 150 mg PO BID #0 06/25/18 06/13/18 hydrALAZINE [Apresoline] 25 mg PO BID tablet 06/25/18 methIMAzole [Tapazole] 10 mg PO DAILYWM tablet 06/25/18 Nitrofurantoin Monohyd/M-Cryst 100 mg PO BID #10 capsule 05/10/19 [Macrobid 100 mg Capsule] - Allergies Allergies/Adverse Reactions: Allergies Allergy/AdvReac Type Severity Reaction Status Date / Time oxycodone Allergy Mild Itching Verified 03/27/20 22:10 - Social History Smoking Status: Never smoker PD ED PE NORMAL - Vitals Vital signs reviewed: Yes - General General: Alert and oriented X 3, No acute distress, Well developed/nourished - HEENT HEENT: PERRL, EOMI, Moist mucous membranes - Neck Neck: Supple, no meningeal sign, No bony TTP - Respiratory Respiratory: No respiratory distress, Clear bilaterally - Abdomen Abdomen: Soft, Non tender - Derm Derm: Normal color, Warm and dry - Extremities Extremities: No edema - Neuro Neuro: Alert and oriented X 3, 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, No motor deficit, No sensory deficit, Normal speech Eye Opening: Spontaneous Motor: Obeys Commands Verbal: Oriented GCS Score: 15 PD ED PE EXPANDED - Cardiac Cardiac: Irregularly irregular, Murmur Present (2/6 ALAN right 2nd ICS) Results - Vitals Vitals: Vital Signs - 24 hr 05/09/19 05/09/19 05/09/19 22:10 22:14 23:48 Temperature 36.6 C Heart Rate 57 L 52 L 62 Respiratory 18 16 18 Rate Blood Pressure 116/78 116/78 108/71 O2 Saturation 95 94 98 05/10/19 01:01 Temperature Heart Rate 64 Respiratory 16 Rate Blood Pressure 117/76 O2 Saturation 97 Oxygen O2 Source Room air - EKG (time done) No standard instances Rate: Rate (enter#) (61) Rhythm: Atrial fibrillation [place]: Normal QRS: Normal Ischemia: Normal ST segments - Labs Labs: Laboratory Tests 05/09/19 05/09/19 05/09/19 22:43 22:43 22:43 WBC 11.6 H RBC 5.34 Hgb 15.6 Hct 48.6 MCV 91.0 MCH 29.2 MCHC 32.1 RDW 17.2 H Plt Count 233 MPV 8.8 Neut # (Auto) 8.4 H Lymph # (Auto) 1.7 [place] # (Auto) 0.9 Eos # (Auto) 0.5 Baso # (Auto) 0.1 Absolute Nucleated RBC 0.00 Nucleated RBC % 0.0 Sodium 140 Potassium 4.2 Chloride 105 Carbon Dioxide 25 Anion Gap 10.0 BUN 17 Creatinine 1.2 Estimated GFR (MDRD) 59 L Glucose 101 H Calcium 8.8 Total Bilirubin 0.7 AST 28 ALT 23 Alkaline Phosphatase 88 Troponin I High Sens 11.2 Total Protein 6.6 L Albumin 3.9 Globulin 2.7 Albumin/Globulin Ratio 1.4 Lipase 23 Urine Color Urine Clarity Urine pH Ur Specific [place] Urine Protein Urine Glucose (UA) Urine Ketones Urine Occult Blood Urine Nitrite Urine Bilirubin Urine Urobilinogen Ur Leukocyte Esterase Urine RBC Urine WBC Ur Squamous Epith Cells Urine Bacteria Urine Casts Ur Microscopic Review Urine Culture Comments 05/10/19 00:05 WBC RBC Hgb Hct MCV MCH MCHC RDW Plt Count MPV Neut # (Auto) Lymph # (Auto) [place] # (Auto) Eos # (Auto) Baso # (Auto) Absolute Nucleated RBC Nucleated RBC % Sodium Potassium Chloride Carbon Dioxide Anion Gap BUN Creatinine Estimated GFR (MDRD) Glucose Calcium Total Bilirubin AST ALT Alkaline Phosphatase Troponin I High Sens Total Protein Albumin Globulin Albumin/Globulin Ratio Lipase Urine Color YELLOW Urine Clarity CLEAR Urine pH 5.5 Ur Specific [place] 1.020 Urine Protein TRACE Urine Glucose (UA) NEGATIVE Urine Ketones NEGATIVE Urine Occult Blood NEGATIVE Urine Nitrite NEGATIVE Urine Bilirubin NEGATIVE Urine Urobilinogen 0.2 (NORMAL) Ur Leukocyte Esterase MODERATE H Urine RBC None Seen Urine WBC 6-10 H Ur Squamous Epith Cells NONE SEEN Urine Bacteria Few Urine Casts 3-5 Hyaline Casts Ur Microscopic Review INDICATED Urine Culture Comments INDICATED PD MEDICAL DECISION MAKING - ED course Complexity details: reviewed results, re-evaluated patient, considered differential, d/w patient ED course: remained asymptomatic during ED stay Departure - Departure Disposition: 01 Home, Self Care Clinical Impression: Near syncope UTI (urinary tract infection) Qualifiers: Urinary tract infection type: acute cystitis Hematuria presence: without hematuria Qualified Code(s): N30.00 - Acute cystitis without hematuria Condition: Good Instructions: ED Near Syncope Unkn, ED UTI Cystitis Male Follow-Up: Jaime Kelley MD [Primary Care Provider] - Prescriptions: Nitrofurantoin Monohyd/M-Cryst [Macrobid 100 mg Capsule] 100 mg PO BID #10 capsule Discharge Date/Time: 05/10/19 01:01
[2019-05-09 22:48] LABS: BASOPHILS # (AUTO) 0.1 10^3/uL (0.0-0.1); EOSINOPHILS # (AUTO) 0.5 10^3/uL (0.0-0.7); EOSINOPHILS % (AUTO) 4.2 %; HGB - HEMOGLOBIN 15.6 g/dL (14.0-18.0); LYMPHOCYTES # (AUTO) 1.7 10^3/uL (1.5-3.5); LYMPHOCYTES % (AUTO) 14.6 %; MEAN CORPUSCULAR HEMOGLOBIN 29.2 pg (27.0-31.0); MEAN CORPUSCULAR HGB CONC 32.1 g/dL (32.0-36.0); MEAN PLATELET VOLUME 8.8 fL (7.4-11.4); MONOCYTES # (AUTO) 0.9 10^3/uL (0.0-1.0); MONOCYTES % (AUTO) 7.3 %; NEUTROPHILS # (AUTO) 8.4 10^3/uL (1.5-6.6); NEUTROPHILS % (AUTO) 72.5 %; PLT - PLATELET COUNT 233 10^3/uL (130-450); RED BLOOD COUNT 5.34 10^6/uL (4.70-6.10); RED CELL DISTRIBUTION WIDTH 17.2 % (12.0-15.0); WHITE BLOOD COUNT 11.6 x10^3/uL (4.8-10.8)
[2019-05-09 23:01] LABS: ALBUMIN 3.9 g/dL (3.2-5.5); ALBUMIN/GLOBULIN RATIO 1.4 (1.0-2.2); BILIRUBIN,TOTAL 0.7 mg/dL (0.2-1.0); CALCIUM 8.8 mg/dL (8.5-10.3); CREATININE 1.2 mg/dL (0.6-1.2); TOTAL PROTEIN 6.6 g/dL (6.7-8.2)
[2019-05-10 00:10] LABS: BILIRUBIN,URINE NEGATIVE (NEGATIVE); CLARITY,URINE CLEAR (CLEAR); GLUCOSE, URINE (UA) NEGATIVE (NEGATIVE); KETONES,URINE (UA) NEGATIVE (NEGATIVE); LEUKOCYTE ESTERASE, URINE MODERATE (NEGATIVE); NITRITE,URINE NEGATIVE (NEGATIVE); OCCULT BLOOD,URINE NEGATIVE (NEGATIVE); PH,URINE 5.5 PH (5.0-7.5); PROTEIN,URINE TRACE mg/dL (NEGATIVE); UROBILINOGEN,URINE 0.2 (NORMAL) E.U./dL (NORMAL)
[2019-05-10 00:25] LABS: BACTERIA,URINE Few /HPF (None Seen); CASTS, URINE 3-5 Hyaline Casts /LPF; RBC,URINE None Seen /HPF (0-5); SQUAMOUS EPITHELIAL CELL,UR NONE SEEN (<= Few)
[2019-05-10] MEDS ORDERED: NITROFURANTOIN MACRO 100 MG CAPSULE PO STA (00:50)
[2019-05-10 01:02] VITALS: BP 117/76
== END 2019-05-10 01:01 | disposition home or self-care (01) ==
LOC: EDUNIT# → ED 22:01
DX: R55 Syncope and collapse (principal); N30.00 Acute cystitis without hematuria; I10 Essential (primary) hypertension
CPT/HCPCS: 36415; 80053; 81001; 83690; 84484; 85025; 87086; 93005; 99284; A9270; 81003

== ENCOUNTER 2020-03-30 11:41 | Outpatient (CLI) | payer MEDICARE ==
[2020-03-30 15:07] LABS: BILIRUBIN,URINE NEGATIVE (NEGATIVE); GLUCOSE, URINE (UA) NEGATIVE (NEGATIVE); KETONES,URINE (UA) NEGATIVE (NEGATIVE); LEUKOCYTE ESTERASE, URINE SMALL (NEGATIVE); NITRITE,URINE NEGATIVE (NEGATIVE); OCCULT BLOOD,URINE NEGATIVE (NEGATIVE); PH,URINE 5.5 PH (5.0-7.5); PROTEIN,URINE NEGATIVE (NEGATIVE); UROBILINOGEN,URINE 0.2 (NORMAL) E.U./dL (NORMAL)
[2020-03-30 15:15] LABS: CLARITY,URINE CLEAR (CLEAR)
[2020-03-30 15:23] LABS: BACTERIA,URINE Few /HPF (None Seen); CREATININE 1.2 mg/dL (0.6-1.2); RBC,URINE None Seen /HPF (0-5); SQUAMOUS EPITHELIAL CELL,UR NONE SEEN (<= Few); WBC CLUMPS,URINE PRESENT
== END 2020-03-30 11:42 | disposition home or self-care (01) ==
LOC: LAB.S 11:41
PROVIDERS: ATTEND Family Medicine
DX: Z51.81 Encounter for therapeutic drug level monitoring (principal); R35.0 Frequency of micturition
CPT/HCPCS: 36415; 81001; 82565; 84450; 84460; 87086

== ENCOUNTER 2022-10-07 18:42 | Emergency (ER) | payer MEDICARE ==
[2022-10-07 19:13] LABS: BASOPHILS # (AUTO) 0.1 10^3/uL (0.0-0.1); BASOPHILS % (AUTO) 0.9 %; EOSINOPHILS # (AUTO) 0.3 10^3/uL (0.0-0.7); EOSINOPHILS % (AUTO) 2.5 %; HCT - HEMATOCRIT 59.2 % (42.0-52.0); LYMPHOCYTES # (AUTO) 1.6 10^3/uL (1.5-3.5); LYMPHOCYTES % (AUTO) 16.1 %; MEAN CORPUSCULAR HEMOGLOBIN 30.8 pg (27.0-31.0); MEAN CORPUSCULAR HGB CONC 32.1 g/dL (32.0-36.0); MEAN CORPUSCULAR VOLUME 96.1 fL (80.0-94.0); MEAN PLATELET VOLUME 9.3 fL (7.4-11.4); MONOCYTES # (AUTO) 0.9 10^3/uL (0.0-1.0); MONOCYTES % (AUTO) 9.3 %; NEUTROPHILS % (AUTO) 69.9 %; PLT - PLATELET COUNT 224 10^3/uL (130-450); RED BLOOD COUNT 6.16 10^6/uL (4.70-6.10); RED CELL DISTRIBUTION WIDTH 17.7 % (12.0-15.0)
[2022-10-07 19:25] LABS: ALBUMIN/GLOBULIN RATIO 1.4 (1.0-2.2); BILIRUBIN,TOTAL 0.7 mg/dL (0.2-1.0); CALCIUM 9.6 mg/dL (8.5-10.3); CREATININE 0.9 mg/dL (0.6-1.3); MAGNESIUM 1.8 mg/dL (1.7-2.3); TOTAL PROTEIN 6.9 g/dL (6.4-8.9)
[2022-10-07 19:43] LABS: THYROID STIMULATING HORMONE 2.9 uIU/mL (0.34-5.60)
--- NOTE | 2022-10-07 21:09 | ED Physician Documentation ---
History of Present Illness - Stated complaint Stated Complaint: HIGH BLOOD PRESSURE,GEN WEAKNESS - Chief complaint Chief Complaint: General - History obtained from History obtained from: Patient, Family - Additonal information Additional information: HPI provided by patient and spouse (in ED at bedside). Patient has dementia and thus his HPI/ROS is of uncertain reliability. Patient says he has been feeling "run down" (per patient) past 1-2 days. He is unable to elaborate with more specific description of symptoms. says patient seems "out of it" (per patient's ) past 2 days, less conversant and less energetic than usual. He is also concerned with high blood pressure readings at home this evening. called a medical advice hotline and was advised to bring patient to ED. 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 Patient also was T+R 05/08/22 from [facility] ED (I was the ED physician at that time), unremarkable test results except UA s/o mild UTI. Patient's medications include anti-hypertensives (metoprolol, amlodipine) and xarelto for atrial fibrillation. Patient cannot recall if he has been taking his medications consistently; says there are blister packs and he thinks there might be some medications still in a few of the packs that should be empty, but has not noted which medications nor any consistent pattern of missed medications. Spouse says patient fell a few days ago, no LOC and does not think he hit his head. PD PAST MEDICAL HISTORY - Past Medical History Cardiovascular: Hypertension, Atrial fibrillation Neuro: TIA Musculoskeletal: Osteoarthritis - Past Surgical History Past Surgical History: Yes Ortho: Spine surgery, Other - Present Medications Home Medications: Ambulatory Orders Medication Instructions Recorded Confirmed Beclomethasone 80 Mcg [Qvar 80] 2 - 4 puffs INH BID PRN 06/13/18 10/07/22 Celecoxib 200 mg PO DAILY 06/13/18 10/07/22 Felodipine [Felodipine ER] 10 mg PO DAILY 06/13/18 10/07/22 Methotrexate [Methotrexate Sodium] 20 mg PO Q7D 06/13/18 10/07/22 Metoprolol Succinate [Toprol Xl] 100 mg PO DAILY 06/13/18 10/07/22 Rivaroxaban [Xarelto] 20 mg PO DAILY 06/13/18 10/07/22 Testosterone Cypionate 200 mg IM ONCE 06/13/18 10/07/22 [Depo-Testosterone] allopurinoL [Allopurinol] 300 mg PO DAILY 06/13/18 10/07/22 predniSONE [Prednisone] 5 mg PO DAILY 06/13/18 10/07/22 Hydrocodone/Acetaminophen 1 each PO BID PRN MDD 2 tabs 06/20/18 10/07/22 [Hydrocodone-Acetamin 7.5-325] Acetaminophen [Tylenol] 650 mg PO Q4HR PRN tablet 06/25/18 10/07/22 Enalapril Maleate [Vasotec] 20 mg PO BID #0 06/25/18 10/07/22 Fluticasone [Flonase] 2 sprays JAMIN DAILY #0 06/25/18 10/07/22 Folic Acid 1 mg PO DAILY #0 06/25/18 10/07/22 Hydroxychloroquine [Plaquenil] 400 mg PO DAILY #0 06/25/18 10/07/22 Ipratropium/Albuterol [Duoneb] 3 ml INH Q6H PRN #1 neb 06/25/18 10/07/22 Lidocaine Patch 5% [Lidoderm Patch] 1 patch TOP DAILY PRN patch 06/25/18 10/07/22 Metoprolol Succinate [Toprol Xl] 50 mg PO BID tablet 06/25/18 10/07/22 Multivitamin W/Minerals [Theragran 1 tab PO DAILYWM tablet 06/25/18 10/07/22 M] Nystatin [Nystop] 1 applic TOP BID bottle 06/25/18 10/07/22 Potassium Chloride 10 meq PO DAILY #0 06/25/18 10/07/22 Tamsulosin [Flomax] 0.4 mg PO DAILY capsule 06/25/18 10/07/22 Thiamine HCl [Thiamine HCl (VIAL)] 100 mg IM DAILY #30 ml 06/25/18 10/07/22 buPROPion [Wellbutrin Sr] 150 mg PO BID #0 06/25/18 10/07/22 hydrALAZINE [Apresoline] 25 mg PO BID tablet 06/25/18 10/07/22 methIMAzole [Tapazole] 10 mg PO DAILYWM tablet 06/25/18 10/07/22 Nitrofurantoin Monohyd/M-Cryst 100 mg PO BID #10 capsule 05/10/19 10/07/22 [Macrobid 100 mg Capsule] Nitrofurantoin [Macrobid] 100 mg PO BID #10 cap 10/08/22 - Allergies Allergies/Adverse Reactions: Allergies Allergy/AdvReac Type Severity Reaction Status Date / Time oxycodone Allergy Mild Itching Verified 10/07/22 18:47 - Social History Does the pt smoke?: No Smoking Status: Never smoker Does the pt drink ETOH?: Yes Does the pt have substance abuse?: Yes - Immunizations Immunizations are current?: Yes - POLST Patient has POLST: No Results - Vitals Vitals: Oxygen O2 Source Room air - EKG (time done) No standard instances EKG releavant findings:: EKG personally interpreted by author of this note. Relevant findings are: Rate: Rate (enter#) (97) Rhythm: Atrial fibrillation [place]: Normal QRS: LVH Ischemia: Q waves (V1-V3, III) - Labs Labs: Microbiology 10/07/22 22:45 Urine Culture - Final Urine,Clean Catch Laboratory Tests 10/07/22 10/07/22 10/07/22 19:06 19:06 22:45 WBC 10.0 RBC 6.16 H Hgb 19.0 H Hct 59.2 H MCV 96.1 H MCH 30.8 MCHC 32.1 RDW 17.7 H Plt Count 224 MPV 9.3 Neut # (Auto) 7.0 H Lymph # (Auto) 1.6 [place] # (Auto) 0.9 Eos # (Auto) 0.3 Baso # (Auto) 0.1 Absolute Nucleated RBC 0.00 Nucleated RBC % 0.0 Sodium 138 Potassium 4.0 Chloride 105 Carbon Dioxide 27 Anion Gap 6.0 BUN 17 Creatinine 0.9 Estimated GFR (MDRD) 81 L Glucose 97 Calcium 9.6 Magnesium 1.8 Total Bilirubin 0.7 AST 19 ALT 33 Alkaline Phosphatase 95 Total Protein 6.9 Albumin 4.0 Globulin 2.9 Albumin/Globulin Ratio 1.4 TSH 2.90 Free T4 Direct 1.10 Free T3 pg/mL 3.17 Urine Color YELLOW Urine Clarity CLEAR Urine pH 5.5 Ur Specific [place] 1.015 Urine Protein TRACE Urine Glucose (UA) NEGATIVE Urine Ketones NEGATIVE Urine Occult Blood NEGATIVE Urine Nitrite NEGATIVE Urine Bilirubin NEGATIVE Urine Urobilinogen 0.2 (NORMAL) Ur Leukocyte Esterase SMALL H Urine RBC 0-5 Urine WBC 6-10 H Ur Squamous Epith Cells NONE SEEN Urine Bacteria Rare Ur Microscopic Review INDICATED Urine Culture Comments INDICATED PD Medical Decision Making - ED course Complexity details: reviewed old records, reviewed results, re-evaluated patient, considered differential, d/w patient, d/w family ED course: No concerning findings on CBC (mildly elevated h/h with hgb 19.0), ER abdominal panel. Normal TFTs (TSH, T3, T4). UA c/w mild UTI and for this he is given macrobid with rx for same; the UA abnormality is unlikely to be causing the symptoms given the minimal (but abnormal) findings. CTH undertaken due to recent fall with anticoagulant, but no acute findings on this study. Test results discussed with patient and patient's spouse. The cause of his symptoms is not apparent at this time (as noted above, possibly due to UTI). Return precautions are discussed, and I instructed them to follow-up with patient's primary medical provider as soon as can be arranged (next fill appointment). Patient did have hypertensive readings and mild tachycardia during ED stay. Patient's spouse does note some missed doses of medications of late, not sure which days nor which medications, although spouse is certain that he has not had his medications today including his antihypertensive medications. He is given 2 doses of 50 mg p.o. metoprolol during ED stay with modest improvement in BP and heart rate prior to discharge. Departure - Departure Disposition: 01 Home, Self Care Clinical Impression: UTI (urinary tract infection) Qualifiers: Urinary tract infection type: acute cystitis Hematuria presence: without hematuria Qualified Code(s): N30.00 - Acute cystitis without hematuria Condition: Good Instructions: ED UTI Cystitis Male Follow-Up: Jaime Kelley MD [Primary Care Provider] - Prescriptions: Nitrofurantoin [Macrobid] 100 mg PO BID #10 cap Comments: There are no concerning findings on tonight's blood tests. Your urinalysis is consistent with a mild urinary tract infection, and you were given the first dos e of antibiotic (nitrofurantoin) in the emergency department, and I have electronically submitted a prescription for course of this same antibiotic to the [facility] pharmacy in [place]. Contact your primary care provider when the office opens on Sunday morning to arrange for next available appointment for reevaluation. Forms: PCP List Discharge Date/Time: 10/08/22 02:16
[2022-10-07] MEDS ORDERED: METOPROLOL TARTRATE 50 MG TABLET PO STA (21:36)
[2022-10-07 22:55] LABS: BILIRUBIN,URINE NEGATIVE (NEGATIVE); GLUCOSE, URINE (UA) NEGATIVE (NEGATIVE); KETONES,URINE (UA) NEGATIVE (NEGATIVE); LEUKOCYTE ESTERASE, URINE SMALL (NEGATIVE); NITRITE,URINE NEGATIVE (NEGATIVE); OCCULT BLOOD,URINE NEGATIVE (NEGATIVE); PH,URINE 5.5 PH (5.0-7.5); PROTEIN,URINE TRACE mg/dL (NEGATIVE); UROBILINOGEN,URINE 0.2 (NORMAL) E.U./dL (NORMAL)
[2022-10-07 22:56] LABS: CLARITY,URINE CLEAR (CLEAR)
[2022-10-07 23:04] LABS: BACTERIA,URINE Rare /HPF (None Seen); RBC,URINE 0-5 /HPF (0-5); SQUAMOUS EPITHELIAL CELL,UR NONE SEEN (<= Few)
--- NOTE | 2022-10-08 00:32 | CT Report ---
PROCEDURE: HEAD WO INDICATIONS: AMS, recent fall and on xarelto TECHNIQUE: Noncontrast 4.5 mm thick angled axial sections acquired from the foramen magnum to the vertex. For r adiation dose reduction, the following was used: automated exposure control, adjustment of mA and/or kV according to patient size. COMPARISON: 06/13/2018. FINDINGS: Image quality: Excellent. CSF spaces: Basal cisterns are patent. No extra-axial fluid collections. Ventricles are normal in size and shape. Brain: No midline shift. No intracranial masses or hemorrhage. Gonzalez-white matter interface is norm al. Age-related volume loss and moderate small vessel ischemic change. This is age-appropriate. Intr acranial carotid calcifications. Skull and face: Calvarium and visualized facial bones are intact, without suspicious lesions. Sinuses: Visualized sinuses and mastoids are clear. IMPRESSION: No acute intracranial process. Temporal Reviewed by: Mir Carpenter MD on 10/08/2022 12:31 AM PDT Approved by: Mir Carpenter MD on 10/08/2022 12:31 AM PDT Station ID: [id number]
[2022-10-08 01:25] VITALS: BP 172/122; O2SAT 98
[2022-10-08] MEDS ORDERED: NITROFURANTOIN MACRO 100 MG CAPSULE PO STA (01:49)
[2022-10-08] MEDS ORDERED: METOPROLOL TARTRATE 50 MG TABLET PO STA (01:49)
== END 2022-10-08 02:16 | disposition home or self-care (01) ==
LOC: ED 18:42
DX: N30.00 Acute cystitis without hematuria (principal); I10 Essential (primary) hypertension; Z79.01 Long term (current) use of anticoagulants; Z91.148 Patient's other noncompliance with medication regimen for other reason
CPT/HCPCS: 36415; 70450; 80053; 81001; 83735; 84439; 84443; 84481; 85025; 87086; 93005; 99282; 99284; A9270; 81003

== ENCOUNTER 2022-12-04 19:37 | Outpatient (CLI) | payer MEDICARE | END 2022-12-04 23:59 | disposition short-term general hospital (02) | LOC: EMS 19:37 | DX: S79.912A Unspecified injury of left hip, initial encounter (principal); M25.552 Pain in left hip; W01.198A Fall on same level from slipping, tripping and stumbling with subsequent striking against other object, initial encounter; Y92.000 Kitchen of unspecified non-institutional (private) residence as the place of occurrence of the external cause; Z79.01 Long term (current) use of anticoagulants; Z96.642 Presence of left artificial hip joint | CPT/HCPCS: A0425; A0427; A0888 ==